=== PATIENT | female | born 1940 | race Caucasian/White ===

== ENCOUNTER → 2016-12-23 11:26 | Day surgery (SDC) | payer MEDICARE, BC ==
[~2016-12-23 11:26] MED LIST: Buffered Lidocaine 1% SYR 3ML* 3 ML/SYR SYRINGE INTRADERM ONE; HYDROcodone/ACETAMIN 5-325 MG* 1 TAB PO PRN; Lidocaine 4% TOPICAL* 50 ML TOP.SOLN ONE; Midazolam* 1 MG/ML 5 ML VIAL (5 MG) ONE; Ondansetron INJ* 2 MG/ML VIAL IV PRN; Ondansetron INJ* 2 MG/ML VIAL ONE; Oxymetazoline 0.05% NASAL SPR* 15 ML BTL ONE; fentaNYL* 50 MCG/ML 2 ML VIAL (100 MCG VIAL) IV PRN; fentaNYL* 50 MCG/ML 2 ML VIAL (100 MCG VIAL) ONE; oxyCODONE TAB* 5 MG TAB PO PRN
[2016-12-23 16:11] VITALS: BP 122/45
--- NOTE | 2016-12-24 00:38 | OP ---
DATE OF OPERATION: 12/23/16 - [facility] DATE OF : 42 SURGEON: David Perez MD. 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 OPERATIVE PROCEDURE: Endoscopic control of epistaxis. COMPLICATIONS: None. DISPOSITION: Good. SPECIMENS: None. BLOOD LOSS: Minimum during the procedure. DESCRIPTION OF PROCEDURE: The patient was taken to the operating room, placed in the supine position on the operating table. General anesthesia was induced and she was orotracheally intubated. Her nose was packed bilaterally with cottonoids impregnated with oxymetazoline and 4% lidocaine. She was turned and draped for the surgery. The packs were removed. She had lot of old clot, which I debrided from her nasal cavity. 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 I cauterized these free edges, her lateral alvarado back into her posterior ethmoid area and up along the anterior face of the sphenoid bilaterally, trying to cauterize anything that might have been her source of bleeding. This was done bilaterally, although it is one big cavity at this point. The patient tolerated the procedure well, no complications, transferred to the recovery room in stable condition. [id number] #: [id number] MTDD
== END | disposition home or self-care (01) ==
LOC: OR 11:26
PROVIDERS: ATTEND Otolaryngology
DX: R04.0 Epistaxis (principal); I78.0 Hereditary hemorrhagic telangiectasia; I10 Essential (primary) hypertension
CPT/HCPCS: A9270-GY; J2250; J2405; J3010

== ENCOUNTER → 2017-01-06 12:50 | Day surgery (SDC) | payer MEDICARE, BC ==
[~2017-01-06 12:50] MED LIST changes: +Lidocain 1% EPI 1:100,000 * 30 ML MDV ONE; +Midazolam* 1 MG/ML 2 ML VIAL (2 MG) ONE; -Midazolam* 1 MG/ML 5 ML VIAL (5 MG) ONE; -Ondansetron INJ* 2 MG/ML VIAL ONE; +Propofol* 10 MG/ML 20 ML BTL IV PUSH ONE; +Silver Nitrate/Potassium Nitr* 1 EA STICK ONE
[2017-01-06 19:50] VITALS: BP 131/73
--- NOTE | 2017-01-07 08:24 | OP ---
DATE OF OPERATION: 01/06/17 - [facility] DATE OF : 42 SURGEON: Cuauhtemoc Dasilva MD ROLLWAY MAN: None. ANESTHESIOLOGIST: Valentín Mercado MD ANESTHESIA: General. 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 OPERATIVE PROCEDURE: Endoscopic control of epistaxis. ESTIMATED BLOOD LOSS: Negligible. FINDINGS: Multiple small potential telangiectasias in both nasal cavities. There was a large perforation of the septum. DESCRIPTION OF PROCEDURE: This is a 76-year-old woman who has hereditary hemorrhagic telangiectasia syndrome. She has history of recurrent epistaxis. She underwent cautery procedure about 2 weeks ago, but continued to have breakthrough cautery, so she was brought back to the operating room today. General anesthesia was induced and oral endotracheal tube was placed. The patient was draped and a time-out was performed. Both nasal cavities were decongested with combination of Afrin and 4% lidocaine. A 0-degree endoscope and a suction Bovie cautery was used to cauterize multiple areas including areas on the floor bilaterally of the nose, the middle and inferior turbinates. Once all potential telangiectasias have been cauterized, the procedure was terminated. The patient was returned to the care of the anesthesiologist, was extubated, delivered to PACU in stable condition. [id number] #: [id number] MTDD
== END | disposition home or self-care (01) ==
LOC: OR 12:50
PROVIDERS: ATTEND Otolaryngology
DX: R04.0 Epistaxis (principal); I78.0 Hereditary hemorrhagic telangiectasia; I34.0 Nonrheumatic mitral (valve) insufficiency; I48.91 Unspecified atrial fibrillation; I10 Essential (primary) hypertension
CPT/HCPCS: A9270-GY; J2250; J2704; J3010

== ENCOUNTER 2018-01-07 08:14 | Day surgery (SDC) | payer MEDICARE, BC ==
[~2018-01-07 08:14] MED LIST changes: +Buffered Lidocaine 0.9% SYRIN* 5 ML/SYR SYRINGE INTRADERM ONE; -Buffered Lidocaine 1% SYR 3ML* 3 ML/SYR SYRINGE INTRADERM ONE; +Dexamethasone IV* 4 MG/ML 1 ML (4 MG) IV SLOW PU ONE; +Famotidine IV* 10 MG/ML 2 ML (20 mg) IV ONE; -HYDROcodone/ACETAMIN 5-325 MG* 1 TAB PO PRN; -Lidocain 1% EPI 1:100,000 * 30 ML MDV ONE; -Lidocaine 4% TOPICAL* 50 ML TOP.SOLN ONE; -Midazolam* 1 MG/ML 2 ML VIAL (2 MG) ONE; -Ondansetron INJ* 2 MG/ML VIAL IV PRN; -Oxymetazoline 0.05% NASAL SPR* 15 ML BTL ONE; -Propofol* 10 MG/ML 20 ML BTL IV PUSH ONE; -Silver Nitrate/Potassium Nitr* 1 EA STICK ONE; -fentaNYL* 50 MCG/ML 2 ML VIAL (100 MCG VIAL) IV PRN; -fentaNYL* 50 MCG/ML 2 ML VIAL (100 MCG VIAL) ONE; -oxyCODONE TAB* 5 MG TAB PO PRN
[2018-01-07] MEDS ORDERED: Buffered Lidocaine 0.9% SYRIN* 5 ML/SYR SYRINGE ONE (08:31)
[2018-01-07] MEDS ORDERED: Famotidine IV* 10 MG/ML 2 ML (20 mg) ONE (08:31)
[2018-01-07] MEDS ORDERED: Dexamethasone IV* 4 MG/ML 1 ML (4 MG) ONE (08:31)
[2018-01-07] MEDS ORDERED: fentaNYL* 50 MCG/ML 2 ML VIAL (100 MCG VIAL) ONE (09:34)
[2018-01-07] MEDS ORDERED: Midazolam* 1 MG/ML 2 ML VIAL (2 MG) ONE (09:34)
[2018-01-07] MEDS ORDERED: Lidocaine 4% TOPICAL* 50 ML TOP.SOLN ONE (10:01)
[2018-01-07] MEDS ORDERED: Oxymetazoline 0.05% NASAL SPR* 15 ML BTL ONE (10:01)
[2018-01-07] MEDS ORDERED: Lidocaine 2% PF * 5 ML VIAL ONE (10:38)
[2018-01-07] MEDS ORDERED: Propofol* 10 MG/ML 20 ML BTL IV PUSH ONE (10:38)
[2018-01-07] MEDS ORDERED: Ondansetron INJ* 2 MG/ML VIAL ONE (10:38)
[2018-01-07] MEDS ORDERED: Naloxone* 0.4 MG/ML 1 ML VIAL IV PRN (11:15)
[2018-01-07 12:26] VITALS: BP 132/58
--- NOTE | 2018-01-07 18:53 | OP ---
DATE OF OPERATION: 01/07/18 - [facility] DATE OF : 42 SURGEON: Cuauhtemoc Dasilva MD. CARPENTER SUPERVISOR: None. ANESTHESIOLOGIST: Franko Virk MD ANESTHESIA: General. 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 OPERATIVE PROCEDURE: Endoscopic control of epistaxis, bilateral. ESTIMATED BLOOD LOSS: Approximately 50 cc. FINDINGS: Active epistaxis of the anterior portion of the inferior turbinate on the right as well as on the posterior aspect of the anterior septal remnant. INDICATION: This is a 77-year-old woman who has had lifelong problems with nosebleeds secondary to hereditary hemorrhagic telangiectasia syndrome. She had been doing well for the past year, but began to have significant bleeding events. The decision was made to bring her back to the operating room for endoscopic cautery. DESCRIPTION OF PROCEDURE: On 01/07/18, the patient was brought to the operating room. General anesthesia was induced and an oral endotracheal tube was placed. The patient was draped and a time-out was performed. The patient' s Merocel packs were removed, at which point there was immediate brisk bleeding. The involved areas appeared to be the right inferior turbinate as well as an arterial posterior edge of the anterior septal remnant. These were extensively cauterized with both a monopolar suction Bovie as well as an endoscopic bipolar cautery. A number of Valsalvas were performed. Few other small areas were cauterized in the region of the left inferior turbinate and on the nasal floor. Ultimately, when all areas of active bleeding and anticipated bleeding were cauterized, the procedure was terminated. Bacitracin ointment was placed into both nasal cavities and applied with a cotton tipped applicator and a drip francisco was applied. The patient was then returned to the care of the anesthesiologist, extubated, and delivered to the PACU in stable condition. [id number] #: [id number] MTDD
== END 2018-01-07 12:32 | disposition home or self-care (01) ==
LOC: OR 08:14
PROVIDERS: ATTEND Otolaryngology
DX: I78.0 Hereditary hemorrhagic telangiectasia (principal); R04.0 Epistaxis; I10 Essential (primary) hypertension; I35.0 Nonrheumatic aortic (valve) stenosis; I48.2 Chronic atrial fibrillation
CPT/HCPCS: A9270-GY; J1100; J2250; J2405; J2704; J3010

== ENCOUNTER 2018-05-27 08:56 | Day surgery (SDC) | payer MEDICARE, BC ==
[2018-05-27] MEDS ORDERED: Famotidine IV* 10 MG/ML 2 ML (20 mg) ONE (09:56)
[2018-05-27] MEDS ORDERED: Dexamethasone IV* 4 MG/ML 1 ML (4 MG) ONE (09:56)
[2018-05-27] MEDS ORDERED: Propofol* 10 MG/ML 20 ML BTL IV PUSH ONE (10:54)
[2018-05-27] MEDS ORDERED: Lidocaine 2% PF * 5 ML VIAL ONE (10:54)
[2018-05-27] MEDS ORDERED: Succinylcholine* 20 MG/ML 10 ML VIAL ONE (10:58)
[2018-05-27] MEDS ORDERED: Lidocaine 4% TOPICAL* 50 ML TOP.SOLN ONE (11:17)
[2018-05-27] MEDS ORDERED: Oxymetazoline 0.05% NASAL SPR* 15 ML BTL ONE (11:17)
[2018-05-27] MEDS ORDERED: Lidocain 1% EPI 1:100,000 * 30 ML MDV ONE (11:17)
[2018-05-27] MEDS ORDERED: Naloxone* 0.4 MG/ML 1 ML VIAL IV PRN (12:21)
[2018-05-27 13:13] VITALS: BP 154/95
--- NOTE | 2018-05-28 02:26 | OP ---
DATE OF OPERATION: 05/27/18 - [facility] DATE OF : 42 SURGEON: Cuauhtemoc Dasilva MD BRICK BURNER: None. ANESTHESIA: General. PRE-OP DIAGNOSIS: Epistaxis secondary to hereditary hemorrhagic telangiectasia. POST-OP DIAGNOSIS: Epistaxis secondary to hereditary hemorrhagic telangiectasia. OPERATIVE PROCEDURE: Endoscopic control of epistaxis bilaterally. ESTIMATED BLOOD LOSS: Negligible. FINDINGS: Dominant telangiectasia apparently the cause of the most recent bleed was present on the left inferior turbinate. There were multiple additional small telangiectasias bilaterally. All of these were cauterized using the monopolar suction Bovie. DESCRIPTION OF PROCEDURE: This is a 77-year-old woman, who has had perennial trouble with epistaxis secondary to her underlying HHT. She was last brought to the operating room 4 months ago for endoscopic control of epistaxis. She had a significant bleed few days ago which required packing. Today, she was brought to the operating room. General anesthesia was induced and oral endotracheal tube was placed. The patient was draped and time-out was performed. The patient's Merocel pack was removed from the left nasal cavity. Bilateral nasal endoscopy was performed. Crusting and purulent secretions were removed from both nasal cavities. There appeared to be a dominant telangiectasia on the left inferior turbinate, likely the cause of the patient's recent bleed. This was cauterized with the monopolar suction Bovie. Detailed inspection of both nasal cavities was then performed endoscopically and a few additional small telangiectasias were seen and cauterized with the monopolar suction Bovie as well. Cauterized areas were then coated with the Bacitracin ointment. The patient was then returned to the care of the anesthesiologist, extubated, and delivered to PACU. [id number] #: [id number]
== END 2018-05-27 13:15 | disposition home or self-care (01) ==
LOC: OR 08:56
PROVIDERS: ATTEND Otolaryngology
DX: I78.0 Hereditary hemorrhagic telangiectasia (principal); I10 Essential (primary) hypertension; I48.91 Unspecified atrial fibrillation; I35.0 Nonrheumatic aortic (valve) stenosis; J32.9 Chronic sinusitis, unspecified
CPT/HCPCS: A9270-GY; J0330; J1100; J2704

== ENCOUNTER → 2018-09-15 20:34 | Emergency (ER) | payer MEDICARE, BC ==
[~2018-09-15 20:34] MED LIST changes: -Buffered Lidocaine 0.9% SYRIN* 5 ML/SYR SYRINGE INTRADERM ONE; -Dexamethasone IV* 4 MG/ML 1 ML (4 MG) IV SLOW PU ONE; -Famotidine IV* 10 MG/ML 2 ML (20 mg) IV ONE; +NS 0.9% 1000 ML* 1,000 ML IV ONE
[2018-09-15 21:15] LABS: ABS Basophils 0.1 10^3/ul (0-0.2); ABS Eosinophils 0 10^3/ul (0-0.6); ABS Lymphocytes 0.8 10^3/ul (1.0-4.8); ABS Monocytes 1.1 10^3/ul (0-0.8); ABS Neutrophils 6.4 10^3/ul (1.5-7.7); ABS Nucleated RBC 0 10^3/ul; Eosinophil % 0.3 % (0-6); Hematocrit 39 % (35-47); Hemoglobin 12.4 g/dl (12.0-16.0); Lymphocyte % 9.1 % (25-47); Mean Corpuscular HGB Conc 32 g/dl (31-36); Mean Corpuscular Hemoglobin 24 pg (27-31); Mean Corpuscular Volume 76 fL (80-97); Mean Platelet Volume 8.9 fL (7.4-10.4); Nucleated Red Blood Cells % 0; Platelet Count 160 10^3/ul (150-450); Red Blood Count 5.16 10^6/ul (4.00-5.40); Red Cell Distribution Width 19 % (10.5-15); White Blood Count 8.3 10^3/ul (3.5-10.8)
[2018-09-15 21:31] LABS: EGFR Non-African American 146.3 (>60)
--- NOTE | 2018-09-15 21:34 | ED ---
Neurological HPI - HPI Summary HPI Summary: A 78 year old female brought in by ambulance presents to the ED post fall TRANSPORTATION ESCORT on 09/15/2018. Per family, she lost use of her legs and collapsed in their garage after drinking a couple glasses of wine. Per daughter, the patient had no LOC, did not hit her head and had no numbness/tingling post fall. The family claims that she drinks wine but has never had this problem. She has a Hx of a- fib and HTN but is not on blood thinners. She broke her hip in September,. She has hip pain because of this. She denies weakness, MURPHY, lightheadedness, Fever, Chills, Erythema (eyes), Sore throat, Chest pain, Shortness of Breath, Cough, Abdominal pain, Vomiting, Nausea, Dysuria, Hematuria, Edema, Rash and Dizziness. - History of Current Complaint Chief Complaint: EDWeakness Stated Complaint: FALL Time Seen by Provider: 09/15/18 20:48 Hx Obtained From: Patient, Family/Auto Mechanics Instructor Onset/Duration: Sudden Onset, Started hours ago Pain Intensity: 0 Pain Scale Used: 0-10 Numeric - Additional Pertinent History Primary Care Physician: PAULINO - Allergy/Home Medications Allergies/Adverse Reactions: Allergies Allergy/AdvReac Type Severity Reaction Status Date / Time chlorpheniramine Allergy Intermediate See Comment Verified 09/15/18 20:52 diphenhydramine Allergy See Comment Verified 09/15/18 20:52 enoxaparin [From Lovenox] Allergy Bleeding Verified 09/15/18 20:52 heparin Allergy Bleeding Verified 09/15/18 20:52 loratadine Allergy See Comment Verified 09/15/18 20:52 rivaroxaban [From Xarelto] Allergy Bleeding Verified 09/15/18 20:52 warfarin Allergy Bleeding Verified 09/15/18 20:52 pepper Allergy Severe coughing Uncoded 09/15/18 20:52 and sneezing antihistamines Allergy heart race Uncoded 09/15/18 20:52 blood thiners AdvReac Severe Bleeding Uncoded 09/15/18 20:52 PMH/Surg Hx/FS Hx/Imm Hx Endocrine/Hematology History: Reports: Other Endocrine/Hematological Disorders - epitaxis (HHT), Osler Telangiectasia Denies: Hx Sickle Cell Disease Cardiovascular History: Reports: Hx Congestive Heart Failure, Hx Coronary Artery Disease, Hx Hypertension - ON MEDS PT STATES CONTROLLED, Other Cardiovascular Problems/Disorders - Mitral Valve disorder Respiratory History: Reports: Other Respiratory Problems/Disorders - HX OF EPISTAXIS, HAS ONE NOW, SOUND STUFFY DUE TO PACKING IN NOSE PRESENTLY GI History: Denies: Other GI Disorders History: Denies: Other Problems/Disorders Musculoskeletal History: Reports: Hx Arthritis, Other Musculoskeletal History - left Hip Fx with repair 09/25/16 Denies: Hx Osteoporosis Sensory History: Reports: Hx Cataracts - bilat surgery, Hx Contacts or Glasses - reading small print, Hx Hearing Aid - LEFT EAR Opthamlomology History: Reports: Hx Cataracts - bilat surgery, Hx Contacts or Glasses - reading small print Neurological History: Denies: Hx Headaches, Hx Seizures, Hx Transient Ischemic Attacks (TIA), Other Neuro Impairments/Disorders Psychiatric History: Denies: Hx Anxiety, Hx Depression - Cancer History Hx Chemotherapy: No - Surgical History Surgery Procedure, Year, and Place: SEVERAL NOSE SURGERIES FOR EPISTAXIS, [facility] + . PARTIAL HYSTERECTOMY IN EARLY , [place]. left Hip Fx with repair . bilat cataract surgery with IOL Hx Anesthesia Reactions: No Infectious Disease History: No Infectious Disease History: Denies: Traveled Outside the [place] in Last 30 Days - Family History Known Family History: Negative: Hypertension, Diabetes - Social History Alcohol Use: Daily Alcohol Amount: 2 GLASS WINE/NIGHT Substance Use Type: Reports: None Smoking Status (MU): Never Smoked Tobacco Review of Systems Negative: Fever, Chills Negative: Erythema Negative: Sore Throat Negative: Chest Pain Negative: Shortness Of Breath, Cough Negative: Abdominal Pain, Vomiting, Nausea Negative: dysuria, hematuria Positive: Myalgia - hip pain. Negative: Edema Negative: Rash Neurological: Negative - dizziness Negative: Headache, Weakness, Paresthesia, Numbness, Syncope All Other Systems Reviewed And Are Negative: Yes Physical Exam - Summary Physical Exam Summary: Constitutional: Well-developed, Well-nourished, Alert. (-) Distressed Skin: Warm, Dry HENT: Normocephalic; Atraumatic, dry oral mucosa. Eyes: Conjunctiva normal Neck: Musculoskeletal ROM normal neck. (-) JVD, (-) Stridor, (-) Tracheal deviation Cardio: Rhythm regular, rate normal, Heart sounds normal; Intact distal pulses; The pedal pulses are 2+ and symmetric. Radial pulses are 2+ and symmetric. (-) Murmur Pulmonary/Chest wall: Effort normal. (-) Respiratory distress, (-) Wheezes, (-) Rales Abd: Soft, (-) epigastric tenderness, (-) Distension, (-) Guarding, (-) Rebound , (+) mild suprapubic tenderness Musculoskeletal: (-) Edema Lymph: (-) Cervical adenopathy Neuro: Alert, Oriented x3 Psych: Mood and affect Normal Triage Information Reviewed: Yes Vital Signs On Initial Exam: Initial Vitals Temp Pulse Resp BP Pulse Ox 98.2 F 110 18 156/117 95 09/15/18 20:40 09/15/18 20:40 09/15/18 20:40 09/15/18 20:40 09/15/18 20:40 Vital Signs Reviewed: Yes Diagnostics - Vital Signs Vital Signs Temp Pulse Resp BP Pulse Ox 09/15/18 20:40 98.2 F 110 18 156/117 95 - Laboratory Lab Results: Lab Results 09/15/18 Range/Units 21:04 WBC 8.3 (3.5-10.8) 10^3/ul RBC 5.16 (4.00-5.40) 10^6/ul Hgb 12.4 (12.0-16.0) g/dl Hct 39 (35-47) % MCV 76 L (80-97) fL MCH 24 L (27-31) pg MCHC 32 (31-36) g/dl RDW 19 H (10.5-15) % Plt Count 160 (150-450) 10^3/ul MPV 8.9 (7.4-10.4) fL Neut % (Auto) 77.3 (38-83) % Lymph % (Auto) 9.1 L (25-47) % Calvert % (Auto) 12.7 H (0-7) % Eos % (Auto) 0.3 (0-6) % Baso % (Auto) 0.6 (0-2) % Absolute Neuts (auto) 6.4 (1.5-7.7) 10^3/ul Absolute Lymphs (auto) 0.8 L (1.0-4.8) 10^3/ul Absolute Monos (auto) 1.1 H (0-0.8) 10^3/ul Absolute Eos (auto) 0 (0-0.6) 10^3/ul Absolute Basos (auto) 0.1 (0-0.2) 10^3/ul Absolute Nucleated RBC 0 10^3/ul Nucleated RBC % 0 Result Diagrams: 09/15/18 21:04 09/15/18 21:04 Lab Statement: Any lab studies that have been ordered have been reviewed, and results considered in the medical decision making process. - Radiology CXR Radiology Interpretation Completed By: ED Physician - no acute disease. ED physician reviewed this report. - CT Brain CT Interpretation Completed By: Radiologist - 1. No acute intracranial pathology. 2. Mild mucosal thickening of the of the ethmoid sinuses. 3. Other chronic findings, as above. ED physician reviewd this report. Course/Dx - Course Course Of Treatment: A 78 year old female brought in by ambulance presents to the ED post fall TRANSPORTATION ESCORT on 09/15/2018. Per family, she lost use of her legs and collapsed in their garage after drinking a couple glasses of wine. Per daughter , the patient had no LOC, did not hit her head and had no numbness/tingling post fall. The family claims that she drinks wine but has never had this problem. She has a Hx of a-fib and HTN but is not on blood thinners. She broke her hip in September,. She has hip pain because of this. She denies weakness , MURPHY, lightheadedness, Fever, Chills, Erythema (eyes), Sore throat, Chest pain, Shortness of Breath, Cough, Abdominal pain, Vomiting, Nausea, Dysuria, Hematuria , Edema, Rash and Dizziness. Her CXR showed no acute disease. Her brain CT revealed:1. No acute intracranial pathology. 2. Mild mucosal thickening of the of the ethmoid sinuses. 3. Other chronic findings, as above. Her lactic acid was remarkable at 2.1 and her serum alcohol was remarkable at 182. Dx: alcohol intoxication. The patient will be signed out to Dr. Mcknight at shift change pending labs. - Diagnoses Provider Diagnoses: Alcohol intoxication Discharge - Sign-Out/Discharge Documenting (check all that apply): Sign-Out Patient Signing out patient TO: Omayra Mcknight - Discharge Plan Referrals: Velvet Lemon MD [Primary Care Provider] - - Attestation Statements Document Initiated by Scribe: Yes Documenting Scribe: Zheng Lauren Provider For Whom Scribe is Documenting (Include Credential): Garo Dela Cruz Scribe Attestation: I, Zheng Lauren, scribed for Garo Dela Cruz on 09/15/18 at 2230.
[2018-09-15 21:38] LABS: Urine Appearance Clear; Urine Blood 1+ (Negative); Urine Color Yellow; Urine Ketones Negative (Negative); Urine Protein 1+(30 mg/dL) (Negative); Urine Red Blood Cell Trace(0-2/hpf) (Absent); Urine Specific Gravity 1.003 (1.010-1.030); Urine Urobilinogen Negative (Negative); Urine White Blood Cell Trace(0-5/hpf) (Absent)
--- NOTE | 2018-09-15 23:06 | ED ---
Progress - Progress Note Progress Note: This pt was signed out by Dr. Dela Cruz, pending disposition, awaiting MHE. EKG at 22:59 Rate: 101 bpm Rhythm: atrial fibrillation LVH Re-Evaluation - Re-Evaluation First Eval Re-Evaluation Time: 23:05 Comment: Pt was ambulated in the ED without any difficulty. Course/Dx - Course Course Of Treatment: Pt was signed out by Dr. Dela Cruz. Pt was ambulated in the ED and she had a steady gait. Therefore she will be discharged home with follow up from PCP. Pt was instructed to return to the ED for any worsening symptoms. - Diagnoses Provider Diagnoses: Alcohol intoxication Discharge - Sign-Out/Discharge Documenting (check all that apply): Patient Departure - Discharge home, Receiving Sign-Out Receiving patient FROM: Garo Dela Cruz - Discharge Plan Condition: Stable Disposition: HOME Patient Education Materials: Alcohol Intoxication (ED) Referrals: Velvet Lemon MD [Primary Care Provider] - Additional Instructions: Please follow up with your primary care provider in 1-2 days. RETURN TO EMERGENCY DEPARTMENT FOR ANY NEW OR WORSENING SYMPTOMS. - Attestation Statements Document Initiated by Scribe: Yes Documenting Scribe: Gisela Garcia Provider For Whom Scribe is Documenting (Include Credential): Omayra Mcknight MD Scribe Attestation: Gisela Mayorga, scribed for Omayra Mcknight MD on 09/15/18 at 2088.
[2018-09-15 23:15] VITALS: BP 129/104
== END | disposition home or self-care (01) ==
LOC: ED 20:34
DX: F10.129 Alcohol abuse with intoxication, unspecified (principal); I25.10 Atherosclerotic heart disease of native coronary artery without angina pectoris
CPT/HCPCS: 36415; 70450; 71045; 80053; 80320; 81003; 81015; 83605; 83735; 84443; 84484; 85025; 87086; 93005; 96360; 99282; G0480

== ENCOUNTER 2019-04-14 07:55 | Inpatient (IN) | payer MEDICARE, BC ==
--- OUTSIDE RECORDS SUMMARY | 2019-04-14 08:06 | XMS REPORT | Continuity of Care Document ---
:1940 External Reference #:[id number] Author Name Cha Gonzalez Care Team Providers Name Role Phone Velvet Lemon MD Primary Care Physician Unavailable Payers Date Identification Numbers Payment Provider Subscriber Effective: 2006 Policy Number: [id number] Medicare Aminah Hensley PayID: [id number] [address] [place] [address] Policy Number: [id number] [facility] Leonard Bills PayID: [id number] [address] [place] [address] Problems Active Problems Provider Date Mixed hyperlipidemia Gracy Mc M.D. Onset: 03/23/2014 Premature beats Garcy Mc M.D. Onset: 03/23/2014 [place] haemorrhagic telangiectasia syndrome Gracy Mc M.D. Onset: 2013 Aortic valve disorder Gracy Mc M.D. Onset: 08/23/2015 Essential hypertension Gracy Mc M.D. Onset: 08/23/2015 Carotid artery occlusion Gracy Mc M.D. Onset: 03/23/2016 Persistent atrial fibrillation Gracy Mc M.D. Onset: 11/23/2016 Mitral valve disorder Gracy Mc M.D. Onset: 04/03/2019 Chronic atrial fibrillation Gracy Mc M.D. Onset: 01/31/2018 Family History Date Family Member(s) Observation Comments Father Colon Cancer 80 yo Mother Hypertension elder years, age 93 yo Siblings 9 2 sibs lung CA. No CAD/vascular disease. Social History Type Date Description Comments Sex Unknown Marital Status Lives With Occupation Retired Tobacco Use Start: Unknown not smoking ETOH Use Consumes 1 glass of wine per day Tobacco Use Start: Unknown Patient has never smoked Recreational Drug Use Denies Drug Use Smoking Status Reviewed: 04/03/19 Patient has never smoked Exercise Type/Frequency Ymca 3 x week Exercise Type/Frequency Walks 5 times a week Allergies, Adverse Reactions, Alerts Active Allergies Reaction Severity Comments Date Anticoagulants HHT- Hereditary hemorrhagic 03/23/2014 telangiectasia per patient Adhesives pt states ok with any tape 03/23/2014 Anti Histamine per patient 11/23/2016 Inactive Allergies NKDA 03/21/2014 Medications Active Medications SIG Qnty Indications Ordering Provider Date Metoprolol Succinate 1 and 1/2 by 225tabs Gracy Mc, 10/29/2016 ER mouth in the M.D. 100mg Tablets ER morning and one 24HR tablet at night Lisinopril 1 by mouth every 90tabs I10 Gracy Mc, 08/03/2014 2.5mg day M.D. Tablets Ensure 1 drink in the Am Unknown every day Vitamin D 1 by mouth Unknown 1000Unit everyday Tablets History Medications Metoprolol Succinate 1 tab by mouth 60tabs Douglas Khalil, 02/08/2013 - ER twice a day DO FACC 10/29/2016 50mg Tablets ER 24HR Flax Seed as needed Unknown - 11/22/2016 Furosemide 1 by mouth wednesday, 30tabs Douglas Khalil, - 20mg wednesday and DO FACC 07/13/2017 Tablets wednesday Digoxin 1 by mouth daily 90tabs Gracy Mc, - 125mcg M.D. 04/03/2019 Tablets Vital Signs Date Vital Result Comment 04/03/2019 4:07pm Height 68 inches 5'8" Weight 117.00 lb with shoes Heart Rate 90 /min BP Systolic Sitting 144 mmHg Lue reg cuff BP Diastolic Sitting 92 mmHg Lue reg cuff BP Systolic Standing 140 mmHg Lue reg cuff BP Diastolic Standing 88 mmHg Lue reg cuff Respiratory Rate 16 /min BMI (Body Mass Index) 17.8 kg/m2 Ejection Fraction 60-65% date 03/29/19 ECHO 01/31/2018 2:30pm Height 68 inches 5'8" Weight 128.00 lb Heart Rate 63 /min BP Systolic Sitting 127 mmHg BP Diastolic Sitting 62 mmHg BP Systolic Standing 128 mmHg BP Diastolic Standing 63 mmHg Respiratory Rate 18 /min BMI (Body Mass Index) 19.5 kg/m2 Ejection Fraction 55-60% 01/25/2018 echo 07/29/2017 1:18pm Height 68 inches 5'8" Weight 135.00 lb Heart Rate 88 /min BP Systolic Sitting 134 mmHg Lue reg cuff BP Diastolic Sitting 98 mmHg Lue reg cuff BP Systolic Standing 134 mmHg Lue BP Diastolic Standing 92 mmHg Lue Respiratory Rate 18 /min BMI (Body Mass Index) 20.5 kg/m2 Ejection Fraction 55-60% 10/26/16 07/13/2017 2:48pm Height 68 inches 5'8" Weight 136.00 lb with shoes Heart Rate 82 /min BP Systolic Sitting 140 mmHg Lue reg cuff BP Diastolic Sitting 110 mmHg Lue reg cuff BP Systolic Standing 140 mmHg Lue reg cuff BP Diastolic Standing 102 mmHg Lue reg cuff Respiratory Rate 17 /min BMI (Body Mass Index) 20.7 kg/m2 12/29/2016 9:39am Height 68 inches 5'8" Weight 142.00 lb Heart Rate 96 /min BP Systolic Sitting 124 mmHg Rue reg cuff BP Diastolic Sitting 88 mmHg Rue reg cuff BP Systolic Standing 116 mmHg Rue reg cuff BP Diastolic Standing 90 mmHg Rue reg cuff Respiratory Rate 17 /min BMI (Body Mass Index) 21.6 kg/m2 Ejection Fraction 55-60% date 10/26/16 ECHO 12/14/2016 11:41am Height 68 inches 5'8" Heart Rate 80 /min BP Systolic Sitting 118 mmHg Lue , regular cuff BP Diastolic Sitting 70 mmHg Lue , regular cuff BP Systolic Standing 110 mmHg BP Diastolic Standing 70 mmHg Respiratory Rate 18 /min 12/01/2016 10:52am Height 68 inches 5'8" Weight 143.00 lb w/ shoes Heart Rate 100 /min irreg BP Systolic Sitting 112 mmHg Rue, reg cuff BP Diastolic Sitting 60 mmHg Rue, reg cuff BP Systolic Standing 120 mmHg Rue BP Diastolic Standing 70 mmHg Rue Respiratory Rate 16 /min BMI (Body Mass Index) 21.7 kg/m2 Ejection Fraction 55-60% as of 10/26/16 echo 11/23/2016 11:05am Height 68 inches 5'8" Weight 142.00 lb with shoes Heart Rate 78 /min BP Systolic Sitting 128 mmHg Rue reg cuff BP Diastolic Sitting 90 mmHg Rue reg cuff BP Systolic Standing 140 mmHg Rue reg cuff BP Diastolic Standing 90 mmHg Rue reg cuff Respiratory Rate 18 /min BMI (Body Mass Index) 21.6 kg/m2 Ejection Fraction 60-65% date 10/26/16 ECHO 10/29/2016 2:33pm Height 68 inches 5'8" Weight 143.00 lb Heart Rate 106 /min irregular BP Systolic Sitting 164 mmHg Ra reg cuff BP Diastolic Sitting 76 mmHg Ra reg cuff BP Systolic Standing 164 mmHg Ra BP Diastolic Standing 80 mmHg Ra Respiratory Rate 16 /min BMI (Body Mass Index) 21.7 kg/m2 Ejection Fraction 55-60% 10/26/16 03/23/2016 9:32am Height 68 inches 5'8" Weight 146.00 lb with shoes Heart Rate 76 /min BP Systolic Sitting 152 mmHg LA reg cuff BP Diastolic Sitting 88 mmHg LA reg cuff BP Systolic Standing 150 mmHg LA reg cuff BP Diastolic Standing 88 mmHg LA reg cuff Respiratory Rate 18 /min BMI (Body Mass Index) 22.2 kg/m2 Ejection Fraction no EF 08/14/14 08/23/2015 8:44am Height 68 inches 5'8" Weight 143.31 lb no shoes Heart Rate 74 /min BP Systolic Sitting 126 mmHg LA, reg cuff BP Diastolic Sitting 84 mmHg LA, reg cuff BP Systolic Standing 128 mmHg LA BP Diastolic Standing 72 mmHg LA Respiratory Rate 14 /min BMI (Body Mass Index) 21.8 kg/m2 08/03/2014 1:13pm Height 68 inches 5'8" Weight 150.00 lb with shoes Heart Rate 66 /min BP Systolic Sitting 170 mmHg La reg cuff BP Diastolic Sitting 90 mmHg La reg cuff BMI (Body Mass Index) 22.8 kg/m2 03/23/2014 10:14am Height 68 inches 5'8" Weight 148.00 lb without shoes Heart Rate 54 /min BP Systolic 156 mmHg LA reg cuff BP Diastolic 90 mmHg LA reg cuff BP Systolic Sitting 150 mmHg LA reg cuff BP Diastolic Sitting 100 mmHg LA reg cuff BP Systolic Standing 154 mmHg LA reg cuff BP Diastolic Standing 94 mmHg LA reg cuff Respiratory Rate 12 /min BMI (Body Mass Index) 22.5 kg/m2 Results Test Date Facility Test Result H/L Range Note Laboratory test 12/11/2016 [facility] Digoxin 0.7 ng/ml Low 0.8-2.0 [address] [place] [address] [phone] Magnesium 2.0 mg/dL N 1.9-2.7 2 Basic Metabolic Panel 12/11/2016 [facility] Sodium 140 mmol/L N 133-145 [address] [place] [address] [phone] Chloride 103 mmol/L N 101-111 Co2 Carbon Dioxide 31 mmol/L N 22-32 Glucose 102 mg/dL High 70-100 Blood Urea Nitrogen 9 mg/dL N 6-24 Creatinine 0.64 mg/dL N 0.51-0.95 BUN/Creatinine Ratio 14.1 N 8-20 Calcium 10.0 mg/dL N 8.6-10.3 Egfr Non- 90.5 N >60 Egfr 116.3 N >60 3 Potassium 4.3 mmol/L N 3.5-5.0 Anion Gap 6 mmol/L N 2-11 Laboratory test 10/23/2016 [facility] Partial 24.3 seconds Low 26.0-36.3 finding [address] [facility] [place] [address] PTT [phone] Inr/Protime 10/23/2016 [facility] Inr 1.11 N 0.89-1.[address] [place] [address] [phone] CBC Auto Diff 10/23/2016 [facility] White Blood 5.7 10^3/uL N 3.5-10.[address] [place] [address] [phone] Red Blood Count 4.33 10^6/uL N 4.0-5.4 Hemoglobin 12.8 g/dL N 12.0-16.0 Hematocrit 40 % N 35-47 Mean Corpuscular Volume 91 fL N 80-97 Mean Corpuscular Hemoglobin 30 pg N 27-31 Mean Corpuscular HGB Conc 32 g/dL N 31-36 Red Cell Distribution Width 14 % N 10.5-15 Platelet Count 217 10^3/uL N 150-450 Mean Platelet Volume 9 um3 N 7.4-10.4 Abs Neutrophils 3.9 10^3/uL N 1.5-7.7 Abs Lymphocytes 0.9 10^3/uL Low 1.0-4.8 Abs Monocytes 0.8 10^3/uL N 0-0.8 Abs Eosinophils 0.1 10^3/uL N 0-0.6 Abs Basophils 0 10^3/uL N 0-0.2 Abs Nucleated RBC 0 10^3/uL N Granulocyte % 67.7 % N 38-83 Lymphocyte % 15.6 % Low 25-47 Monocyte % 14.4 % High 1-9 Eosinophil % 1.5 % N 0-6 Basophil % 0.8 % N 0-2 Nucleated Red Blood Cells % 0 N Laboratory test 10/23/2016 [facility] Magnesium 1.8 mg/dL Low 1.9-2.7 finding [address] [place] [address] [phone] TSH (Thyroid Stim Horm) 1.25 mcIU/mL N 0.34-5.60 Free T4 (Free Thyroxine) 1.30 ng/dL High 0.61-1.12 Comp Metabolic Panel 10/23/2016 [facility] Sodium 138 mmol/L N 133-145 [address] [place] [address] [phone] Potassium 4.0 mmol/L N 3.5-5.0 Chloride 108 mmol/L N 101-111 Co2 Carbon Dioxide 23 mmol/L N 22-32 Anion Gap 7 mmol/L N 2-11 Glucose 101 mg/dL High 70-100 Blood Urea Nitrogen 10 mg/dL N 6-24 Creatinine 0.59 mg/dL N 0.51-0.95 BUN/Creatinine Ratio 16.9 N 8-20 Calcium 9.3 mg/dL N 8.6-10.3 Total Protein 6.6 g/dL N 6.4-8.9 Albumin 3.1 g/dL Low 3.2-5.2 Globulin 3.5 g/dL N 2-4 Albumin/Globulin Ratio 0.9 Low 1-3 Total Bilirubin 0.80 mg/dL N 0.2-1.0 Alkaline Phosphatase 112 U/L High 34-104 Alt 17 U/L N 7-52 Ast 26 U/L N 13-39 Egfr Non- 99.4 N >60 Egfr 127.8 N >60 4 1 Non-fasting in 10 days 2 Non-fasting in 10 days 3 Because ethnic data is not always readily available, this report includes an eGFR for both -Americans and non- Americans. The National Kidney Disease Education Program (NKDEP) does not endorse the use of the MDRD equation for patients that are not between the ages of 18 and 70, are , have extremes of body size, muscle mass, or nutritional status, or are non- or non-. According to the National Kidney Foundation, irrespective of diagnosis, the stage of the disease is based on the level of kidney function: Stage Description GFR(mL/min/1.73 m(2)) 1 Kidney damage with normal or decreased GFR 90 2 Kidney damage with mild decrease in GFR 60-89 3 Moderate decrease in GFR 30-59 4 Severe decrease in GFR 15-29 5 Kidney failure <15 (or dialysis) 4 Because ethnic data is not always readily available, this report includes an eGFR for both -Americans and non- Americans. The National Kidney Disease Education Program (NKDEP) does not endorse the use of the MDRD equation for patients that are not between the ages of 18 and 70, are , have extremes of body size, muscle mass, or nutritional status, or are non- or non-. According to the National Kidney Foundation, irrespective of diagnosis, the stage of the disease is based on the level of kidney function: Stage Description GFR(mL/min/1.73 m(2)) 1 Kidney damage with normal or decreased GFR 90 2 Kidney damage with mild decrease in GFR 60-89 3 Moderate decrease in GFR 30-59 4 Severe decrease in GFR 15-29 5 Kidney failure <15 (or dialysis) Procedures Date Code Description Status 04/03/2019 41004 EKG Tracing & Interpretation Completed 03/29/2019 31041 ECHO Transthoracic, Real-Time 2D With Doppler And Color Completed Flow 01/25/2018 12851 ECHO Transthoracic, Real-Time 2D With Doppler And Color Completed Flow 01/25/2018 68956 ECHO Transthoracic, Real-Time 2D With Doppler And Color Completed Flow 07/13/2017 88249 EKG Tracing & Interpretation Completed 12/14/2016 23774 EKG Tracing & Interpretation Completed 12/14/2016 50785 EKG Tracing & Interpretation Completed 12/02/2016 10139 Holter Monitor Review (24 hr)dr review & interp only Completed 11/25/2016 02192 ECG Monitor/Recording W/Visual Superimposition Scanning Completed 11/23/2016 46435 EKG Tracing & Interpretation Completed 10/29/2016 12073 EKG Tracing & Interpretation Completed 10/26/2016 75937 ECHO Transthorasic Realtime 2D W Doppler & Color Flow Hosp Completed 10/23/2016 63587 EKG, Interpretation Only Completed 02/04/2016 27743 Carotid Doppler,Bilateral Completed 08/23/2015 99859 EKG Tracing & Interpretation Completed 08/14/2014 40579 ECHO Transthoracic, Real-Time 2D With Doppler And Color Completed Flow 08/03/2014 42922 EKG Tracing & Interpretation Completed 03/23/2014 64629 EKG Tracing & Interpretation Completed 03/21/2014 30309 Holter Monitoring 24 HR New Completed 09/13/2013 91353 EKG, Interpretation Only Completed 08/28/2013 24466 EKG, Interpretation Only Completed 04/18/2013 84527 ECHO Transthoracic, Real-Time 2D With Doppler And Color Completed Flow 03/07/2013 60632 EKG Tracing & Interpretation Completed 02/17/2013 65437 Holter Monitoring 24 HR New Completed 01/01/2007 30220 EKG, Interpretation Only Completed 01/01/2007 77491 EKG, Interpretation Only Completed Encounters Type Date Location Provider Dx Diagnosis Office Visit 01/31/2018 [facility] Gracy Mc, I35.1 Nonrheumatic aortic 2:40p [employer] M.D. 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 I50.9 Heart failure, Of [facility] Khalil, DO unspecified FACC I48.91 Unspecified atrial fibrillation I10 Essential (primary) hypertension Office Visit 10/25/2016 7:13a [facility] Soo Burt, I48.91 Unspecified atrial Assoc,pc N.P. 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 I50.9 Heart failure, Of [employer] Khalil, DO unspecified FACC I48.91 Unspecified atrial fibrillation I10 Essential (primary) hypertension Office Visit 03/23/2016 9:45a [facility] Gracy Mc, I35.0 Nonrheumatic [employer] M.D. aortic (valve) stenosis I35.1 Nonrheumatic aortic (valve) insufficiency I10 Essential (primary) hypertension E78.2 Mixed hyperlipidemia I65.23 Occlusion and stenosis of bilateral carotid arteries Office Visit 08/23/2015 9:00a [facility] Gracy Mc, I35.1 Nonrheumatic aortic Cardiology Joi (valve) [facility] insufficiency I35.0 Nonrheumatic aortic (valve) stenosis I10 Essential (primary) hypertension I49.3 Ventricular premature depolarization R09.89 Oth symptoms and signs involving the circ and resp systems R01.1 Cardiac murmur, unspecified I35.2 Nonrheumatic aortic (valve) stenosis with insufficiency Office Visit 08/03/2014 [facility] Gracy Mc, V72.81 Examination 1:15p Cardiology Latrell Tamez [facility] Cardiovascular 401.9 Hypertension Unspec 424.1 Aortic Valve Disorder 427.60 Premature Beats Unspec Office Visit 03/23/2014 [facility], 272.2 Hyperlipidemia Mixed 9:45a Cardiology Joi [facility] 427.60 Premature Beats Unspec 448.0 Telangiectasia Hemorrhagic Hereditary Office Visit 03/07/2013 12:45p [facility] Gracy Mc, 427.69 Premature Beats Of [facility] Joi Other 427.0 PSVT Paroxysmal Supraventricular Tachycardia 401.9 Hypertension Unspec 424.1 Aortic Valve Disorder Plan of Treatment Future Appointment(s):04/25/2019 3:30 pm - Nurse Visit [facility] at [facility]04/03/2019 - Gracy Mc M.D.I48.2 Chronic atrial fibrillationComments: Rate is controlled.Follow up:OV 6 months with ECG OV 12 months after next echo , with ECG. Nurse check 3-5 weeks: Check weight, pulse rate (apical) off digoxen.Recommendations:Continue with metoprolol for rate control. Digoxen can lead to appetite suppression. If more weight loss we can stop this. STOP DIGOXEN.I35.0 Nonrheumatic aortic (valve) stenosisNew Orders:Echocardiogram, Ordered: 04/03/19Comments:Moderate.Recommendations:For your aortic stenosis this will progress slowly, call if your breathing worsens, you get dizzy, you notice extra beats, your overall stamina declines or you develope chest discomfort with activity.Follow w/echo in a year. This could contribute to lung exam.I34.0 Nonrheumatic mitral (valve) insufficiencyComments:Mild to hzqpwgemN48.2 Nonrheumatic mitral (valve) stenosisComments:Moderate.R22.1 Localized swelling, mass and lump, neckComments:I noted a firm nodule left neck , possibly on the thyroid.F/u with Dr Lemon.
--- OUTSIDE RECORDS SUMMARY | 2019-04-14 08:06 | XMS REPORT | Continuity of Care Document ---
:1940 External Reference #:[id number] Author Name Cha Gonzalez Care Team Providers Name Role Phone Velvet Lemon MD Primary Care Physician Unavailable Payers Date Identification Numbers Payment Provider Subscriber Effective: 2006 Policy Number: [id number] Medicare Aminah Hensley PayID: [id number] [address] [place] [address] Policy Number: [id number] [facility] Leonard Bills PayID: [id number] [address] [place] [address] Problems Active Problems Provider Date Mixed hyperlipidemia Gracy Mc M.D. Onset: 03/23/2014 Premature beats Gracy Mc M.D. Onset: 03/23/2014 Osler haemorrhagic telangiectasia syndrome Gracy Mc M.D. Onset: 2013 Aortic valve disorder Gracy Mc M.D. Onset: 08/23/2015 Essential hypertension Gracy Mc M.D. Onset: 08/23/2015 Carotid artery occlusion Gracy Mc M.D. Onset: 03/23/2016 Persistent atrial fibrillation Gracy Mc M.D. Onset: 11/23/2016 Mitral valve disorder Gracy cM M.D. Onset: 04/03/2019 Chronic atrial fibrillation Gracy [...] drink in the Am Unknown every day Digoxin 1 by mouth daily 90tabs Gracy Mc, 125mcg M.D. Tablets Vitamin D 1 by mouth Unknown 1000Unit everyday Tablets History Medications Metoprolol Succinate 1 tab by mouth 60tabs Douglas Khalil, 02/08/2013 - ER twice a day DO FACC 10/29/2016 50mg Tablets ER 24HR Flax Seed as needed Unknown - 11/22/2016 Furosemide 1 by mouth wednesday, 30tabs Douglas Khalil, - 20mg wednesday and DO FACC 07/13/2017 Tablets wednesday Vital Signs Date Vital Result Comment 04/03/2019 [...] Result H/L Range Note Laboratory test 12/11/2016 [facility] Digoxin 0.7 ng/ml Low 0.8-2.0 [address] [place] [address] [phone] Magnesium 2.0 mg/dL N 1.9-2.7 2 Basic Metabolic Panel 12/11/2016 [facility] Sodium 140 mmol/L N 133-145 [address] [place] [address] [phone] Chloride 103 mmol/L N 101-111 Co2 Carbon Dioxide 31 mmol/L N 22-32 Glucose 102 mg/dL High 70-100 Blood Urea Nitrogen 9 mg/dL N 6-24 Creatinine 0.64 mg/dL N 0.51-0.95 BUN/Creatinine Ratio 14.1 N 8-20 Calcium 10.0 mg/dL N 8.6-10.3 Egfr Non- 90.5 N >60 Egfr 116.3 N >60 3 Potassium 4.3 mmol/L N 3.5-5.0 Anion Gap 6 mmol/L N 2-11 Laboratory test 10/23/2016 [facility] Partial 24.3 seconds Low 26.0-36.[address] [place] [address] PTT [phone] Inr/Protime 10/23/2016 [facility] Inr 1.11 N 0.89-1.[address] [place] [address] [phone] CBC Auto Diff 10/23/2016 [facility] White Blood 5.7 10^3/uL N 3.5-10.[address] [place] [address] [phone] Red Blood Count 4.33 10^6/uL N 4.0-5.4 [...] Cells % 0 N Laboratory test 10/23/2016 [facility] Magnesium 1.8 mg/dL Low 1.9-2.7 finding [address] [place] [address] [phone] TSH (Thyroid Stim Horm) 1.25 mcIU/mL N 0.34-5.60 Free T4 (Free Thyroxine) 1.30 ng/dL High 0.61-1.12 Comp Metabolic Panel 10/23/2016 [facility] Sodium 138 mmol/L N 133-145 [address] [place] [address] [phone] Potassium 4.0 mmol/L N 3.5-5.0 Chloride 108 [...] dialysis) Procedures Date Code Description Status 04/03/2019 16024 EKG Tracing & Interpretation Completed 03/29/2019 76428 ECHO Transthoracic, Real-Time 2D With Doppler And Color Completed Flow 01/25/2018 57041 ECHO Transthoracic, Real-Time 2D With Doppler And Color Completed Flow 01/25/2018 63040 ECHO Transthoracic, Real-Time 2D With Doppler And Color Completed Flow 07/13/2017 73983 EKG Tracing & Interpretation Completed 12/14/2016 20114 EKG Tracing & Interpretation Completed 12/14/2016 00799 EKG Tracing & Interpretation Completed 12/02/2016 11739 Holter Monitor Review (24 hr)dr review & interp only Completed 11/25/2016 91841 ECG Monitor/Recording W/Visual Superimposition Scanning Completed 11/23/2016 53470 EKG Tracing & Interpretation Completed 10/29/2016 33278 EKG Tracing & Interpretation Completed 10/26/2016 65569 ECHO Transthorasic Realtime 2D W Doppler & Color Flow Hosp Completed 10/23/2016 35375 EKG, Interpretation Only Completed 02/04/2016 70789 Carotid Doppler,Bilateral Completed 08/23/2015 99507 EKG Tracing & Interpretation Completed 08/14/2014 06895 ECHO Transthoracic, Real-Time 2D With Doppler And Color Completed Flow 08/03/2014 86133 EKG Tracing & Interpretation Completed 03/23/2014 50138 EKG Tracing & Interpretation Completed 03/21/2014 08569 Holter Monitoring 24 HR New Completed 09/13/2013 04350 EKG, Interpretation Only Completed 08/28/2013 95689 EKG, Interpretation Only Completed 04/18/2013 63802 ECHO Transthoracic, Real-Time 2D With Doppler And Color Completed Flow 03/07/2013 59117 EKG Tracing & Interpretation Completed 02/17/2013 65251 Holter Monitoring 24 HR New Completed 01/01/2007 79373 EKG, Interpretation Only Completed 01/01/2007 70217 EKG, Interpretation Only Completed Encounters Type Date Location Provider Dx Diagnosis Office Visit 04/03/2019 [facility] Gracy Mc, I48.2 Chronic atrial 4:00p Of Rental Manager M.D. fibrillation I35.0 Nonrheumatic aortic (valve) stenosis I34.0 Nonrheumatic mitral (valve) insufficiency I34.2 Nonrheumatic mitral (valve) stenosis R22.1 Localized swelling, mass and lump, neck Office Visit 01/31/2018 2:40p [place] Gracy Mc, I35.1 Nonrheumatic aortic Cardiology Of M.D. 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 I50.9 Heart failure, Of [facility] Khalil, DO unspecified FACC I48.91 Unspecified atrial fibrillation I10 Essential (primary) hypertension Office Visit 10/25/2016 7:13a [facility] Soo Burt, I48.91 Unspecified atrial Assoc,pc N.P. 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 I50.9 Heart failure, Of [employer]ental [employer] Khalil, DO unspecified FACC I48.91 Unspecified atrial fibrillation I10 Essential (primary) hypertension Office Visit 03/23/2016 9:45a [facility] Gracy Mc, I35.0 Nonrheumatic Of [facility] M.DMark aortic (valve) stenosis I35.1 Nonrheumatic aortic (valve) insufficiency I10 Essential (primary) hypertension E78.2 Mixed hyperlipidemia I65.23 Occlusion and stenosis of bilateral carotid arteries Office Visit 08/23/2015 9:00a [place] Gracy Mc, I35.1 Nonrheumatic aortic Cardiology Of M.DMark (valve) Rental Manager insufficiency I35.0 Nonrheumatic aortic (valve) stenosis I10 Essential (primary) hypertension I49.3 Ventricular premature depolarization R09.89 Oth symptoms and signs involving the circ and resp systems R01.1 Cardiac murmur, unspecified I35.2 Nonrheumatic aortic (valve) stenosis with insufficiency Office Visit 08/03/2014 [place] Gracy Mc, V72.81 Examination 1:15p Cardiology Of Jt.[facility] Cardiovascular 401.9 Hypertension Unspec 424.1 Aortic Valve Disorder 427.60 Premature Beats Unspec Office Visit 03/23/2014 [place] Gracy Mc, 272.2 Hyperlipidemia Mixed 9:45a Cardiology Of Joi [facility] 427.60 Premature Beats Unspec 448.0 Telangiectasia Hemorrhagic Hereditary Office Visit 03/07/2013 12:45p [facility] Gracy Mc, 427.69 Premature Beats Of [facility] Jt.Chris Other 427.0 PSVT Paroxysmal Supraventricular Tachycardia 401.9 Hypertension Unspec 424.1 Aortic Valve Disorder Plan of Treatment 04/03/2019 - Gracy Mc M.D.I48.2 Chronic atrial fibrillationComments:Rate is controlled.Follow up:OV 6 months with ECG OV 12 months after next echo, with ECG.Recommendations:Continue with metoprolol for rate control. Digoxen can [...] lung exam.I34.0 Nonrheumatic mitral (valve) insufficiencyComments:Mild to odudmjunR46.2 Nonrheumatic mitral (valve) stenosisComments:Moderate.R22.1 Localized swelling, mass and lump, neckComments:I noted a firm nodule left neck , possibly on the thyroid.F/u with Dr Lemon.
[2019-04-14] MEDS ORDERED: Diltiazem IV push/loading dose 5 MG/ML 5 ML vial (25 mg) IV SLOW PU ONE (08:10)
--- NOTE | 2019-04-14 08:11 | ED ---
Palpitations / Dysrhythmia - HPI Summary HPI Summary: Pt is a 78 y/o F presenting to the ED brought in by EMS for palpitations. Per EMS, the pt has had palpitations for the past couple of days, and her states she has not been taking her medicine, but the patient says she is. EMS states her BP was elevated and her HR was variable. Pt states she noticed her heart was beating very fast yesterday, and the episodes lasted all night. She sees Dr. Mc who has her on a medication for AFib, but she occasionally forgets to take it. She also reports some shakiness and slight dizziness with the palpitations. She denies SOB, abd pain, back pain , and chest pain. - History of Current Complaint Chief Complaint: EDDysrhythmPalp Time Seen by Provider: 04/14/19 07:56 Hx Obtained From: Patient Onset/Duration: Sudden Onset, Lasting Days, Still Present Timing: Constant Severity Initially: Moderate Severity Currently: Moderate Character: Fast Aggravating: Nothing Alleviating: Nothing Associated Signs & Symptoms: Dizzy - Allergy/Home Medications Allergies/Adverse Reactions: Allergies Allergy/AdvReac Type Severity Reaction Status Date / Time chlorpheniramine Allergy Intermediate See Comment Verified 09/15/18 20:52 diphenhydramine Allergy See Comment Verified 09/15/18 20:52 enoxaparin [From Lovenox] Allergy Bleeding Verified 09/15/18 20:52 heparin Allergy Bleeding Verified 09/15/18 20:52 loratadine Allergy See Comment Verified 09/15/18 20:52 rivaroxaban [From Xarelto] Allergy Bleeding Verified 09/15/18 20:52 warfarin Allergy Bleeding Verified 09/15/18 20:52 pepper Allergy Severe coughing Uncoded 09/15/18 20:52 and sneezing antihistamines Allergy heart race Uncoded 09/15/18 20:52 blood thiners AdvReac Severe Bleeding Uncoded 09/15/18 20:52 Home Medications: Home Medications Cholecalciferol (Vitamin D3) [Vitamin D3] 1 tab PO DAILY 04/14/19 [History Confirmed 04/14/19] PMH/Surg Hx/FS Hx/Imm Hx Previously Healthy: No Endocrine/Hematology History: Reports: Other Endocrine/Hematological Disorders - epistaxis (HHT), Osler Telangiectasia Denies: Hx Anticoagulant Therapy, Hx Sickle Cell Disease Cardiovascular History: Reports: Hx Atrial Fibrillation, Hx Congestive Heart Failure, Hx Coronary Artery Disease, Hx Hypertension - ON MEDS PT STATES CONTROLLED, Other Cardiovascular Problems/Disorders - Mitral Valve disorder Respiratory History: Reports: Other Respiratory Problems/Disorders - HX OF EPISTAXIS, HAS ONE NOW, SOUND STUFFY DUE TO PACKING IN NOSE PRESENTLY GI History: Denies: Other GI Disorders History: Denies: Other Problems/Disorders Musculoskeletal History: Reports: Hx Arthritis, Other Musculoskeletal History - left Hip Fx with repair 09/25/16 Denies: Hx Osteoporosis Sensory History: Reports: Hx Cataracts - bilat surgery, Hx Contacts or Glasses - reading small print, Hx Hearing Aid - LEFT EAR Opthamlomology History: Reports: Hx Cataracts - bilat surgery, Hx Contacts or Glasses - reading small print Neurological History: Denies: Hx Headaches, Hx Seizures, Hx Transient Ischemic Attacks (TIA), Other Neuro Impairments/Disorders Psychiatric History: Denies: Hx Anxiety, Hx Depression - Cancer History Hx Chemotherapy: No - Surgical History Surgery Procedure, Year, and Place: SEVERAL NOSE SURGERIES FOR EPISTAXIS, [facility] + . PARTIAL HYSTERECTOMY IN [place] , [place]. left Hip Fx with repair . bilat cataract surgery with IOL Hx Anesthesia Reactions: No Infectious Disease History: No Infectious Disease History: Denies: Traveled Outside the [place] in Last 30 Days - Family History Known Family History: Negative: Hypertension, Diabetes - Social History Alcohol Use: Daily Alcohol Amount: 2 GLASS WINE/NIGHT Hx Substance Use: No Substance Use Type: Reports: None Hx Tobacco Use: No Smoking Status (MU): Never Smoked Tobacco Review of Systems Positive: Other - shakiness Positive: Palpitations. Negative: Chest Pain Negative: Shortness Of Breath Negative: Abdominal Pain Negative: Myalgia Neurological: Other - dizziness All Other Systems Reviewed And Are Negative: Yes Physical Exam - Summary Physical Exam Summary: Appearance: Well-appearing, Well-nourished, lying in bed comfortably Skin: Warm, dry, no obvious rash Eyes: sclera anicteric, no conjunctival pallor ENT: mucous membranes moist, pharynx appears normal Neck: Supple, nontender Respiratory: Clear to auscultation, no signs of respiratory distress Cardiovascular: Rapid irregular pulse. No murmurs. Normal distal pulses in tibial and radial bilaterally. Abdomen: Soft, nontender, normal active bowel sounds present Musculoskeletal: Normal, Strength/ROM Intact Neurological: A&Ox3, awake and alert, mentation is normal, speech is fluent and appropriate Psychiatric: affect is normal, does not appear anxious or depressed Triage Information Reviewed: Yes Vital Signs On Initial Exam: Initial Vitals Temp Pulse Resp BP Pulse Ox 97.7 F 125 26 201/134 92 04/14/19 07:57 04/14/19 07:57 04/14/19 07:57 04/14/19 07:57 04/14/19 07:57 Vital Signs Reviewed: Yes Diagnostics - Vital Signs Vital Signs Temp Pulse Resp BP Pulse Ox 04/14/19 07:57 97.7 F 125 26 201/134 92 - Laboratory Result Diagrams: 04/14/19 08:20 04/14/19 08:20 Lab Statement: Any lab studies that have been ordered have been reviewed, and results considered in the medical decision making process. - Radiology CXR Radiology Interpretation Completed By: Radiologist Summary of Radiographic Findings: Bibasilar infiltrates and moderate size R pleural effusion. ED physician has reviewed this report. - EKG 0757 Cardiac Rate: Other Rate - 123 AFib EKG Rhythm: Atrial Fibrillation ST Segment: Normal Ectopy: None Summary of EKG Findings: EKG at 0757 shows atrial fibrillation at 123bpm with LVH and no STEMI. Course/Dx - Course Course Of Treatment: Pt is a 78 y/o F presenting to the ED brought in by EMS for palpitations onset yesterday and lasting through the night, described as fast. She is on medication for AFib, but occasionally forgets to take it. She also reports some shakiness and slight dizziness with the palpitations. She denies SOB, abd pain, back pain, and chest pain. Pt's initial troponin is 1.05 , and her BNP is >1300. EKG at 0757 shows atrial fibrillation at 123bpm with LVH and no STEMI. [address] Akers about the pts present condition who will be accepting her to [facility]. CXR shows: Bibasilar infiltrates and moderate size R pleural effusion. Her dx will include AFib with RVR, R pleural effusion, and NSTEMI. - Diagnoses Provider Diagnoses: Atrial fibrillation with RVR, Pleural effusion, right, NSTEMI (non-ST elevated myocardial infarction) Discharge - Sign-Out/Discharge Documenting (check all that apply): Patient Departure Patient Received Moderate/Deep Sedation with Procedure: No - Discharge Plan Condition: Stable Disposition: ADMITTED TO [facility] Referrals: Velvet Lemon MD [Primary Care Provider] - - Billing Disposition and Condition Condition: STABLE Disposition: Admitted to [facility] - Attestation Statements Document Initiated by [place]: Yes Documenting Scribe: Neisha Otero Provider For Whom Belem is Documenting (Include Credential): Albaro Loaiza MD. Scribe Attestation: Neisha Mayorga, scribed for Albaro Loaiza MD. on 04/14/19 at 0919. Scribe Documentation Reviewed: Yes Provider Attestation: The documentation as recorded by the Neisha golden accurately reflects the service I personally performed and the decisions made by me, Albaro Loaiza MD. Status of Scribe Document: Viewed Consult Consult: [address] Akers about the pts present condition who will be accepting her to [facility].
[2019-04-14 08:25] LABS: ABS Basophils 0.1 10^3/ul (0-0.2); ABS Lymphocytes 0.5 10^3/ul (1.0-4.8); ABS Monocytes 1.2 10^3/ul (0-0.8); ABS Neutrophils 8.6 10^3/ul (1.5-7.7); Hematocrit 39 % (35-47); Hemoglobin 12.7 g/dL (12.0-16.0); Lymphocyte % 4.4 %; Mean Corpuscular HGB Conc 33 g/dL (31-36); Mean Corpuscular Hemoglobin 27 pg (27-31); Mean Corpuscular Volume 82 fL (80-97); Mean Platelet Volume 8.4 fL (7.4-10.4); Nucleated Red Blood Cells % 0.1; Platelet Count 220 10^3/uL (150-450); Red Blood Count 4.74 10^6 /uL (3.70-4.87); Red Cell Distribution Width 17 % (10-15); White Blood Count 10.3 10^3/uL (3.5-10.8)
[2019-04-14 08:43] LABS: INR 1.5 (0.82-1.09)
[2019-04-14 08:44] LABS: Albumin 3.5 g/dL (3.2-5.2); Albumin/Globulin Ratio 0.8 (1-3); BUN/Creatinine Ratio 22.6 (8-20); Calcium 10.5 mg/dL (8.6-10.3); EGFR African American 135.3 (>60); EGFR Non-African American 111.9 (>60); Globulin 4.3 g/dL (2-4); Potassium 4.4 mmol/L (3.5-5.0); Total Bilirubin 1.9 mg/dL (0.2-1.0); Total Protein 7.8 g/dL (6.4-8.9)
[2019-04-14 08:49] LABS: Troponin I 1.05 ng/mL (<0.04)
[2019-04-14] MEDS ORDERED: Iohexol 350* (CONTRAST) 500 ML MDV IV ONE (09:06)
[2019-04-14] MEDS ORDERED: Ondansetron INJ* 2 MG/ML VIAL IV PRN (10:55)
[2019-04-14] MEDS ORDERED: Acetaminophen TAB* 325 MG PO PRN (10:55)
[2019-04-14 11:18] LABS: HDL Cholesterol 44.5 mg/dL
[2019-04-14] MEDS: Metoprolol Succinate XL TAB* 50 MG PO SCH (11:37)
[2019-04-14 11:43] LABS: Troponin I 1.1 ng/mL (<0.04)
[2019-04-14 15:04] LABS: Troponin I 1.06 ng/mL (<0.04)
--- NOTE | 2019-04-14 15:09 | HP ---
CC: Dr. Lemon; Dr. Bryan Abdalla; Dr. Gracy Mc * ADMISSION HISTORY AND PHYSICAL: DATE OF ADMISSION: 04/14/19 PRIMARY CARE PROVIDER: Dr. Lemon. MY ATTENDING WHILE IN THE HOSPITAL: Dr. Patricia Amaya.* (DICTATED BY TRISHA BAIN) CONSULTING CHANNEL SUPERVISOR: Dr. Bryan Abdalla. OUTPATIENT CHANNEL SUPERVISOR: Dr. Gracy Mc. CHIEF COMPLAINT: Palpitations, shortness of breath x1 day. HISTORY OF PRESENT ILLNESS: Ms. Hensley is a 78-year-old female with past medical history significant for chronic atrial fibrillation, history of heart failure with preserved ejection fraction with pulmonary hypertension as well as hemorrhagic telangiectasia syndrome, and aortic stenosis, who presents to the emergency department after 2 days ago she was feeling in normal state of health when yesterday in the morning she began to feel palpitations like her heart was pounding in her chest. She also has significantly decreased exercise tolerance after having excellent exercise tolerance on the day before [place] the [place] of the day to being able to only walk several feet before getting short of breath. The patient denies any presyncope , but did feel somewhat lightheaded and shaky at times. The patient's took her heart rate and it was generally between 100 and 120. The patient had some chest pressure, but no any chest pain possibly radiating to the arms or the neck. The patient recently had her digoxin stopped by her outpatient funeral limousine driver Dr. Mc due to concern for appetite suppression. The patient did not notice a change in her appetite recently. The patient has lost 24 pounds over the past year, which she ascribes to early satiety and occasional vomiting in the morning related to her postnasal drip from chronic sinus problems. The patient denies any lower extremity edema. The patient never to her recollection had a cardiac catheterization. Had a stress test last year which she states was normal. The patient had a transthoracic echocardiogram at the end of March, which showed a preserved ejection fraction, aortic stenosis, and severe pulmonary hypertension consistent with previous exams. The patient had no other recent illnesses. No abdominal pain, diarrhea, or pain with urination. No rashes. The patient per her had not been taking all of her Toprol. Recently was prescribed 3 times a day and she has not been taking all of these doses. In the emergency department, the patient was found to be in atrial fibrillation with the rate in the 120s with a significantly elevated blood pressure at initially 201/134. The patient had troponin elevated at 1.05 , BNP of greater than 1300, elevated bilirubin and alkaline phosphatase. The patient had no ischemic changes on her EKG. The patient's heart rate was controlled with IV diltiazem, and we were asked to evaluate the patient for admission to the hospital due to concern for heart failure exacerbation. PAST MEDICAL HISTORY: Hereditary hemorrhagic telangiectasia syndrome, CAD, hypertension, aortic stenosis, pulmonary hypertension, hyperlipidemia, heart failure with preserved ejection fraction, atrial fibrillation, liver mass, epistaxis. PAST SURGICAL HISTORY: Multiple laser nasal procedures, ORIF in 2016, partial hysterectomy in her 20s. MEDICATIONS: 1. Lisinopril 2.5 mg p.o. daily. 2. Cholecalciferol 1000 units p.o. daily. 3. Metoprolol succinate 100 mg p.o. b.i.d. ALLERGIES: ANTIHISTAMINES, ANTICOAGULANTS. FAMILY HISTORY: The patient's father and oldest brother of colon cancer. The patient had 2 other siblings who of lung cancer. The patient's mother at 91 and had hypertension. SOCIAL HISTORY: The patient has never smoked. The patient drinks a glass of white wine nightly. The patient denies illicit drug use. 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 The patient is and has 3 children. Her surrogate decision maker will be her Leonard Hensley. REVIEW OF SYSTEMS: A 14-point review of systems was reviewed and is negative except as above in the HPI. PHYSICAL EXAMINATION GENERAL: The patient is a 78-year-old female who appears stated age, sitting comfortably in bed, in no acute distress. VITAL SIGNS: At the time of evaluation, temperature 97.7, pulse rate 71, respiratory rate 26, oxygen saturation 94% on 2 L, blood pressure 158/71. HEENT: Head: Normocephalic, atraumatic. Sclerae anicteric. No conjunctival injection. Nasal mucosa moist. Oral mucosa moist. No pharyngeal erythema, discharge, or exudate. NECK: Supple, nontender. No lymphadenopathy. No carotid bruits auscultated. No JVD. RESPIRATORY: Diminished breath sounds in the right lower lobe, crackles in the left lower lobe, crackles in the right middle lobe. No wheezing or other adventitious lung sounds. CARDIAC: Regular rate and rhythm. No clicks, murmurs, gallops, or rubs. Pulses are 2+ in the bilateral dorsalis pedis, posterior tibialis, and radial areas. ABDOMEN: Soft, nontender, nondistended. Bowel sounds present and normoactive in all 4 quadrants. No hepatosplenomegaly. No abdominal bruits auscultated. No hepatojugular reflux. GENITOURINARY: No suprapubic or CVA tenderness. EXTREMITIES: No bilateral lower extremity edema. No bilateral calf tenderness noted. NEURO: Cranial nerves II through XII intact. No focal deficits. Alert and oriented x3. PSYCHIATRIC: Pleasant and cooperative. SKIN: Clean, dry, and intact. No rashes. DIAGNOSTIC STUDIES/LAB DATA: White blood cell count 10.3, hemoglobin 12.7, platelet count 220,000. Sodium 136, potassium 4.4, chloride 103, carbon dioxide 28, anion gap 5, BUN 12, creatinine 0.53, glucose 136, calcium 10.5, bilirubin 1.9. AST 38, ALT 18, alkaline phosphatase . BNP greater than 1300, protein 7.8, albumin 3.5, globulin is 4.3. Studies: EKG shows atrial fibrillation, rate of 123, QTC of 490. No ST segment elevation or depression. Left axis deviation, possible left ventricular hypertrophy. No other hypertrophy or enlargement compared to previous exam. There are no significant changes except for faster rate. Chest x-ray read as bibasilar infiltrates and moderate size right pleural effusion. Chest thorax CTA read as no evidence of pulmonary embolism, large right pleural effusion, small left pleural effusion with cardiomegaly, no evidence of aneurysmal dilatation of the aorta, interstitial edema. ASSESSMENT AND PLAN/IMPRESSION: Ms. Hensley is a 78-year-old female with past medical history significant for hemorrhagic hereditary telangiectasia syndrome, chronic atrial fibrillation, heart failure with preserved ejection fraction with pulmonary hypertension, who recently has been having some medication changes and medication noncompliance with her weight control agents, found in the emergency department to be in atrial fibrillation with rapid ventricular response and heart failure with an elevated troponin. The patient was admitted to the hospital for diuresis, cardiology consultation, and rate control. 1. Acute on chronic heart failure with preserved ejection fraction. The patient appears to be in congestive heart failure with orthopnea, dyspnea on exertion, pulmonary edema, pleural effusion. This likely has been exacerbated by elevated blood pressure and elevated heart rate likely from rebound from missing the patient's metoprolol doses as well as discontinuation of the patient 's digoxin. This is likely half the cause of the patient's troponin elevation. Though significantly elevated, the patient has no chest pain currently and no signs on her EKG of type 1 CO. The patient will be diuresed. The patient's blood pressure and heart rate will be controlled. The patient's troponin will be trended. The patient will be risk stratified with a lipid profile and hemoglobin A1c. The patient was seen in consultation by Cardiology for consideration of a catheterization; however, this is unlikely to be beneficial as if central stenosis was found, the patient would not be able to take antiplatelet agents limiting the efficacy of treatment. The patient will have strict I's and O's and daily weights as well. Hold the patient's lisinopril at this time due to the intensive diuresis and dye load from the CTA. There was some concern that the patient's pleural effusion may be related to her liver mass given the patient's obvious other signs of fluid overload. There will be limited utility in a thoracentesis at this time. If the patient's pleural effusions are persistent and refractory and symptomatic, a thoracentesis may be considered. 2. Atrial fibrillation with rapid ventricular response. Continue the patient' s metoprolol. Consideration for resuming the patient's digoxin, this will be deferred to Cardiology. 3. Coronary artery disease. It is unclear how this diagnosis was made. We will obtain lipid profile and hemoglobin A1c. The patient is not on a statin. It is very likely the patient should be on a statin. This will be pending the patient's lipid profile results. 4. Liver mass. Continue outpatient workup with endoscopic ultrasound. 5. DVT prophylaxis: SCDs only in the setting of hemorrhagic telangiectasia syndrome. 6. Hereditary hemorrhagic telangiectasia syndrome. The patient is not actively bleeding. The patient is not anemic. Avoid anticoagulants as above. 7. FEN: The patient will have heart healthy diet without caffeine. The patient is fluid overloaded, is not on any fluid at this time. 8. Disposition: The patient will be admitted for observation to the hospital. TIME SPENT: Approximately 60 minutes was spent on the admission of this patient , 30 of which was spent [id number] with the patient, obtaining history and physical, and discussing treatment plan. The plan was discussed with my attending Dr. Patricia Amaya, and she is in agreement. TRISHA BAIN [id number]/[facility] #: [id number] KJ
[2019-04-14 15:18] LABS: TSH (Thyroid Stimulating Horm) 1.37 mcIU/mL (0.34-5.60)
[2019-04-14] MEDS ORDERED: Digoxin IV* 0.5 MG/2 ML AMP (0.25 MG/ML) IV SLOW PU ONE ×2 (17:09→21:15)
[2019-04-14] MEDS: Furosemide IV* 10 MG/ML VIAL (40 MG) IV SLOW PU SCH (17:22)
--- NOTE | 2019-04-14 18:20 | CONS ---
CC: Dr. Gracy Mc; Dr. Velvet Lemon CARDIOLOGY CONSULTATION: DATE OF CONSULT: 04/14/19 REFERRING PHYSICIAN: TRISHA Vargas REASON FOR CARDIOLOGY CONSULTATION: Elevated troponin in a patient with recent chest pain and known Rffng-Wdvat-Ptpaf syndrome. HISTORY OF PRESENT ILLNESS: I was kindly asked by Mark Galvin to see this patient for Cardiology consultation. Ms. Hensley follows with my partner, Dr. Gracy Mc of [facility]. Due to weight loss and concern for digoxin contribution to that, her digoxin was stopped 04/03/19 according to the patient's . The patient 2 days ago began developing chest pain and palpitations. Today, she was scheduled to go to [facility] for GI evaluation, but her decided to call 911 to have her brought to the emergency room. Here, she is found to have elevated troponin. The patient denies chest pain at least at this time that is significant. She was also quite short of breath during this chest pain episode for the past 2 days. She did not have any radiation of her symptoms. She has not had prior coronary artery bypass surgery, stent, or valve surgery. PAST MEDICAL HISTORY: [facility] Atrial Fibrillation - 10/24/16, chronic, no anticoagulation due to epistaxis hx w/ OWR Hypertension PVC'S Mitral Regurgitation Aortic Insufficiency Aortic Stenosis - 2019: Moderate. Pulmonary Hypertension - 2019: PApr 65 mmHg. Liver mass being evaluated. Blood transfusions for severe epistaxis due to Hereditary Hemmorhagic Telangectasias. Hospitalizations: Atrial Fibrillation - (10/24/2016) Cardiac Testing: Echocardiogram - (03/29/2019) [facility] Left ventricle cavity is normal in size. Moderate concentric hypertrophy. Visual EF is 60-65%. DD II, elev. LVEDP. Mild AI, Moderate MOD : MG 24 mmHg, CRISTA 0.8 cm2, AV peak velocity 3.34 m/s. Mild to moderate MR w/prolapse. Moderate MS: mean gradient 3mmHg. Mild TR. Moderate to severe pulmonary hypertension: 65 mmHg. Small pericardial effusion. Stress Echocardiogram - 09/29/11: septal dyskinesis, LVEF 50%, PVC's and HTN off beta ivon. No inducable ischemia PAST SURGICAL HISTORY: Includes multiple laser nasal procedures, ORIF in 2016, partial hysterectomy in her 20s. OUTPATIENT MEDICATIONS: 1. Lisinopril 2.5 mg once a day. 2. Cholecalciferol 1000 units once a day. 3. Metoprolol succinate 100 mg p.o. b.i.d. Again, the patient's digoxin was stopped recently. ALLERGIES TO MEDICATIONS: Listed as BLOOD THINNERS and ANTIHISTAMINES. FAMILY HISTORY: Positive for cardiac disease. SOCIAL HISTORY: The patient does not smoke cigarettes. Abused alcohol as she drinks 2 glasses of wine per night. She has been for 58 years. 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 She does not do regular exercise. REVIEW OF SYSTEMS: She denies personal history of stroke, cancer, vomiting up blood, coughing up blood, bright red blood per rectum, or bleeding stomach ulcers currently; however, she has had significant bleeding in the past including requiring blood transfusions. She denies renal calculi, cholelithiasis, asthma, emphysema, pneumonia, tuberculosis, sleep apnea, home oxygen use, diabetes. She does have a history of hypertension. She denies prior bypass surgery, PCI, or valve surgery. She has chronic atrial fibrillation. Since stopping the digoxin, her weight loss did not improve. She denies psychiatric illnesses. She denies lupus, psoriasis, seizures, Parkinson disease, myasthenia gravis, thyroid disorders, liver disorders, kidney disorders, claudication symptoms, pulmonary emboli, deep venous thrombosis, peripheral arterial disease, renal dysfunction. She has lost 20 pounds over the past year. She has a liver mass, which is being evaluated. She denies heartburn or peripheral edema. All other review of systems are negative x14 except as per this documentation. PHYSICAL EXAM: Height 5 feet 8 inches, weight 121 pounds. Temperature 98.5 degrees Fahrenheit, pulse is ranging from 83 to 121 after she was placed on a beta- ivon and Cardizem drip here, O2 saturation 93%. The patient's initial heart rate on the EKG in the ER was 123. On general exam, she is a pleasant, pale appearing lady who may have some memory impairment, in no acute distress. Her is quite helpful with the history provision. HEENT shows the cranium is normocephalic and atraumatic. She has dry mucosal membranes. Neck veins are not distended. There are no carotid bruits. Visible skin warm and perfused. Affect appropriate. She appears grossly oriented. Formal mini- mental status exam not done. Mild kyphoscoliosis on back exam. She is quite thin. Lungs are clear to auscultation. No wheezes, no rales. Cardiac Exam: S1, S2. Regular rate. A 2/6 systolic ejection murmur heard with preserved aortic component, second heart sound. There is no rub, no gallop. PMI is nondisplaced. Abdomen: Soft and nondistended, appears benign. Extremities: Without significant edema. Pulses appear intact. DIAGNOSTIC STUDIES/LAB DATA: A 12-lead EKG completed 04/14/19 at 7:57 shows atrial fibrillation at 123 beats per minute with LVH. Sodium 136, potassium 4.4, chloride 103, bicarbonate 28, BUN 12, creatinine 0.53. Troponin is 1.05 on admission, followed by 1.10, followed by 1.06. BNP 1300. TSH 1.37. ALT 18. INR 1.5. White blood cell count 10.3, hematocrit 39 , platelet count 220,000. IMPRESSION: Ms. Hensley is a pleasant 78-year-old woman with a history of chronic atrial fibrillation. She appears to have had recent non-Q-wave myocardial infarction, which may have been demand mediated with increased heart rates off of her digoxin. She is very adamant that she does not want to take any blood thinners including even baby aspirin, which I can understand given her significant hereditary hemorrhagic telangiectasia with life-threatening epistaxis requiring blood transfusions in the past. RECOMMENDATIONS: 1. I think it is reasonable to restart digoxin for heart rate control, especially as she did not have significant benefit in terms of her weight increasing and/or her appetite improving off of the digoxin. 2. Continue Toprol-XL and increase dose as required with aim to keep heart rate less than 100; per the patient's , the patient's heart rate is usually in the 70s. I do think it is reasonable to start her on a statin for plaque stabilization and again we cannot give her any antiplatelet agents or blood thinners. 3. Plan echocardiogram and cardiac chemical nuclear stress test early next week (today is Wednesday of the prior week) once the patient is more stabilized for further cardiovascular risk stratification. Revascularization even with BMS (if needed) will be a complex decision due to patient's history of HHT and life threatening epistaxis. 4. Other management as per the hospitalist medicine service and I have discussed the case with Mr. Galvin. 5. The patient may follow up with her usual rn invasive, Dr. Mc post discharge. I also discussed the case with the patient and her . They appear to be in agreement with these recommendations. The patient is adamant that she does not want to take any blood thinners and understands medical risks and benefits inherent in that decision. Dear Harjeet Galvin, many thanks for asking me to participate in the cardiovascular consultative care of Ms. Hensley. Please do not hesitate to contact me if you have any questions or concerns regarding the patient's cardiovascular consultative care. [id number]/[facility] #: [id number] KJ
--- NOTE | 2019-04-14 18:46 | HP ---
HISTORY AND PHYSICAL: ADDENDUM: HISTORY OF PRESENT ILLNESS: The case was reviewed and discussed with TRISHA Vargas. Ms. Hensley is a 78-year-old female with a past medical history of hereditary hemorrhagic telangiectasia syndrome , coronary artery disease, hypertension, aortic stenosis, pulmonary hypertension, heart failure with preserved ejection fraction, atrial fibrillation, who presented to the emergency room with complaints of palpitations and shortness of breath for 1 day. She has missed some doses of her rate control me dication. CTA of the chest shows known pleural effusion and it was negative for pulmonary embolism. IMPRESSION AND PLAN: The patient's troponin is elevated, but in the setting of chronic heart failure exacerbation and atrial fibrillation with rapid ventricular response. The plan is to continue rate control and continue to monitor. [id number]/[facility] #: [id number]
[2019-04-14] MEDS: Metoprolol Succinate XL TAB* 100 MG PO SCH (21:17)
[2019-04-15 04:59] LABS: Hematocrit 37 % (35-47); Hemoglobin 11.9 g/dL (12.0-16.0); Mean Corpuscular HGB Conc 33 g/dL (31-36); Mean Corpuscular Hemoglobin 26 pg (27-31); Mean Corpuscular Volume 81 fL (80-97); Mean Platelet Volume 8.6 fL (7.4-10.4); Platelet Count 180 10^3/uL (150-450); Red Blood Count 4.54 10^6 /uL (3.70-4.87); Red Cell Distribution Width 17 % (10-15)
[2019-04-15 05:02] LABS: ABS Lymphocytes 0.6 10^3/ul (1.0-4.8); ABS Monocytes 1.6 10^3/ul (0-0.8); ABS Neutrophils 8.7 10^3/ul (1.5-7.7); Eosinophil % 0.1 %; Lymphocyte % 5.8 %; Nucleated Red Blood Cells % 0.1
[2019-04-15 05:17] LABS: ALT 15 U/L (7-52); AST 29 U/L (13-39); Albumin 3.1 g/dL (3.2-5.2); Albumin/Globulin Ratio 0.8 (1-3); Alkaline Phosphatase 153 U/L (34-104); Anion Gap 6 mmol/L (2-11); BUN/Creatinine Ratio 26.9 (8-20); Blood Urea Nitrogen 14 mg/dL (6-24); CO2 Carbon Dioxide 28 mmol/L (22-32); Calcium 9.8 mg/dL (8.6-10.3); Chloride 101 mmol/L (101-111); EGFR African American 138.4 (>60); EGFR Non-African American 114.3 (>60); Globulin 3.7 g/dL (2-4); Glucose 122 mg/dL (70-100); Magnesium 1.6 mg/dL (1.9-2.7); Potassium 3.5 mmol/L (3.5-5.0); Sodium 135 mmol/L (135-145); Total Protein 6.8 g/dL (6.4-8.9)
[2019-04-15 05:24] LABS: Troponin I 0.69 ng/mL (<0.04)
[2019-04-15 05:43] LABS: Digoxin 1.3 ng/ml (0.8-2.0)
[2019-04-15] MEDS ORDERED: Digoxin IV* 0.5 MG/2 ML AMP (0.25 MG/ML) IV SLOW PU ONE (08:00)
[2019-04-15] MEDS: Furosemide IV* 10 MG/ML VIAL (40 MG) IV SLOW PU SCH ×2 (08:42→16:10)
[2019-04-15] MEDS: Cholecalciferol TAB* 1000 UNITS PO SCH (08:42)
[2019-04-15] MEDS: Metoprolol Succinate XL TAB* 100 MG PO SCH ×2 (08:42→20:18)
[2019-04-15] MEDS: Metoprolol Succinate XL TAB* 50 MG PO SCH (13:41)
--- NOTE | 2019-04-15 15:13 | PN ---
Subjective Date of Service: 04/15/19 Interval History: Patient today fells well, denies CP, Palpitations, F/C, N/V, abdominal pain, diarrhea, dysuria, or other pain. Patient is amenable to ischemic workup. Patient states SOB has improved. Family History: Unchanged from Admission Social History: Unchanged from Admission Past Medical History: Unchanged from Admission Objective Active Medications: Acetaminophen (Tylenol Tab*) 650 mg PO Q6H PRN PRN Reason: FEVER/PAIN Atorvastatin Calcium (Lipitor*) 40 mg PO 1700 [facility] Cholecalciferol (Vitamin D Tab*) 1,000 units PO DAILY [facility] Last Admin: 04/15/19 08:42 Dose: 1,000 units Digoxin (Lanoxin Tab*) 0.125 mg PO 1700 [facility] Furosemide (Lasix Iv*) 40 mg IV SLOW PU 0800,1700 [facility] Last Admin: 04/15/19 08:42 Dose: 40 mg Metoprolol Succinate (Toprol Xl Tab*) 50 mg PO 1200 [facility] Last Admin: 04/15/19 13:41 Dose: 50 mg Metoprolol Succinate (Toprol Xl Tab*) 100 mg PO BID [facility] Last Admin: 04/15/19 08:42 Dose: 100 mg Ondansetron HCl (Zofran Inj*) 4 mg IV Q6H PRN PRN Reason: NAUSEA Vital Signs - 8 hr 04/15/19 04/15/19 04/15/19 07:17 08:00 08:42 Temperature 98.2 F Pulse Rate 93 90 Respiratory 18 18 Rate Blood Pressure 155/80 (mmHg) O2 Sat by Pulse 90 Oximetry 04/15/19 11:27 Temperature 98.4 F Pulse Rate 77 Respiratory 16 Rate Blood Pressure 136/49 (mmHg) O2 Sat by Pulse 92 Oximetry Oxygen Devices in Use Now: None Appearance: Patient is a 78yo female who appears stated age and is sitting in the bed in [facility]. Eyes: No Scleral Icterus, PERRLA Ears/Nose/Mouth/Throat: NL Teeth, Lips, Gums, Clear Oropharnyx, Mucous Membranes Moist Neck: NL Appearance and Movements; NL JVP, Trachea Midline Respiratory: Symmetrical Chest Expansion and Respiratory Effort, Clear to Auscultation Cardiovascular: NL Sounds; No Murmurs; No JVD, RRR, - - 1+ B/L LE edema. Abdominal: NL Sounds; No Tenderness; No Distention, No Hepatosplenomegaly Lymphatic: No Cervical Adenopathy Skin: No Rash or Ulcers, No Nodules or Sclerosis Neurological: Alert and Oriented x 3, NL Sensation, NL Muscle Strength and Tone , - - CN II-XII intact. Result Diagrams: 04/15/19 04:53 04/15/19 04:53 Assess/Plan/Problems-Billing Assessment: Patient is a 78yo female with a PMH for HTN, Afib, HFpEF, and HHT syndrome who presents with afib with RVR and HFpEF exacerbation with elevated troponin. Patient is feeling better today and is pending ischemic workup on Wednesday. - Patient Problems (1) Afib Current Visit: No Status: Acute Code(s): I48.91 - UNSPECIFIED ATRIAL FIBRILLATION SNOMED Code(s): 17245706 Comment: - Rate control with Metoprolol and Digoxin. - Digoxin was recently stopped and was missing doses of Metoprolol. Loaded with Digoxin again overnight - Possibly rebound tachycardia precipitating symptoms - RVR likely exacerbates HFpEF - (2) Elevated troponin Current Visit: Yes Status: Acute Code(s): R74.8 - ABNORMAL LEVELS OF OTHER SERUM ENZYMES SNOMED Code(s): 265057454 Comment: - Peaked at 1.1 - Appreciate Cardiology Consult, Had CP ELEVATOR EXAMINER AND ADJUSTER - Echo and stress test pending (3) CHF (congestive heart failure) Current Visit: No Status: Acute Code(s): I50.9 - HEART FAILURE, UNSPECIFIED SNOMED Code(s): 13964622 Comment: - Suspect CHF related to afib - Continue digoxin, metoprolol - Echo pending - Continue IV lasix at this time. (4) Hereditary hemorrhagic telangiectasia Current Visit: No Status: Chronic Code(s): I78.0 - HEREDITARY HEMORRHAGIC TELANGIECTASIA SNOMED Code(s): 68079437 Comment: - Precludes anti-platelets and anticoagulants. (5) DVT prophylaxis Current Visit: No Status: Acute Code(s): GHZ7952 - SNOMED Code(s): 215990668 Comment: - SCDs only, anticoagulation contraindicated. Status and Disposition: Inpatient for ischemia evaluation and CHF exacerbation.
[2019-04-15] MEDS: Atorvastatin* 40 MG TAB PO SCH (16:09)
[2019-04-15] MEDS: Digoxin TAB* 0.125 MG PO SCH (16:09)
[2019-04-16 05:27] LABS: ABS Lymphocytes 0.7 10^3/ul (1.0-4.8); ABS Monocytes 1.5 10^3/ul (0-0.8); ABS Neutrophils 6.3 10^3/ul (1.5-7.7); Eosinophil % 0.5 %; Hematocrit 39 % (35-47); Hemoglobin 12.9 g/dL (12.0-16.0); Lymphocyte % 8.1 %; Mean Corpuscular HGB Conc 33 g/dL (31-36); Mean Corpuscular Hemoglobin 26 pg (27-31); Mean Corpuscular Volume 80 fL (80-97); Mean Platelet Volume 8.4 fL (7.4-10.4); Platelet Count 192 10^3/uL (150-450); Red Cell Distribution Width 17 % (10-15); White Blood Count 8.5 10^3/uL (3.5-10.8)
[2019-04-16 05:38] LABS: BUN/Creatinine Ratio 30.6 (8-20); Calcium 9.9 mg/dL (8.6-10.3); EGFR African American 148.2 (>60); EGFR Non-African American 122.5 (>60); Magnesium 1.5 mg/dL (1.9-2.7); Potassium 2.9 mmol/L (3.5-5.0)
[2019-04-16] MEDS ORDERED: Magnesium Sulf 4 GM/100 ML IV* 4,000 MG/100 ML BAG IVPB ONE (07:05)
[2019-04-16] MEDS ORDERED: Potassium Chloride* LIQUID 20 MEQ/15 ML UDC PO ONE (07:06)
[2019-04-16 07:45] LABS: Digoxin 1.2 ng/ml (0.8-2.0)
[2019-04-16] MEDS: KCL 20 MEQ/100 ML IVPREMIX* 20 MEQ/100 ML BAG IV SCH ×3 (08:51→16:59)
[2019-04-16] MEDS: Torsemide TAB 10 MG PO SCH (08:51)
[2019-04-16] MEDS: Metoprolol Succinate XL TAB* 100 MG PO SCH ×2 (08:51→21:06)
[2019-04-16] MEDS: Cholecalciferol TAB* 1000 UNITS PO SCH (08:51)
--- NOTE | 2019-04-16 11:19 | ECHO ---
*[facility]* [place] [address] Fax #: [phone] Transthoracic Echocardiogram Patient: Ayden, Height: 68 in / Aminah Carrasco 172.7 cm : 1940 Weight: 120.7 lb / Study Date: 04/16/2019 54.9 kg Age: 78 BP: 120 / 40 Gender: F BMI/BSA: 18.4 HR: 70 bpm kg/m^2 / 1.65 m^2 *Tour Guide: * Luz Sutton [facility] *Referring Physician: * Harjeet Galvin *Reading Physician: * Bryan Abdalla MD Indications: Chest Pain, unspecified. History: Atrial fibrillation. Congestive heart failure. Risk factors: Hypertension. Conclusions Summary: 1. Left ventricle: The cavity size is below normal. There is moderate concentric hypertrophy. Systolic function is normal. The estimated ejection fraction is 55-60%. Wall motion is normal; there are no regional wall motion abnormalities. 2. Left atrium: The atrium is severely dilated. 3. Right atrium: The atrium is moderately dilated. 4. Mitral valve: The findings are consistent with mild stenosis. There is mild regurgitation. 5. Aortic valve: The findings are consistent with moderate stenosis. There is mild to moderate regurgitation. 6. Ascending aorta: The ascending aorta is mildly dilated. 7. Since the prior echocardiogram completed 03/29/19, pertinent changes are prior normal left ventricular size reported and prior mildly dilated ascending aorta not reported. Study data: Transthoracic echocardiogram. Procedure: Transthoracic echocardiography was performed. Image quality was fair. Complete 2D, spectral Doppler, and color flow Doppler. Location: Bedside. Patient status: Inpatient. Patient room number: 448-2. Rhythm: Atrial fibrillation. Findings Left ventricle: The cavity size is below normal. There is moderate concentric hypertrophy. Systolic function is normal. The estimated ejection fraction is 55-60%. Wall motion is normal; there are no regional wall motion abnormalities. Left ventricular diastolic function parameters are indeterminate. Right ventricle: The cavity size is normal. The moderator band is in a normal position. Systolic function is normal. Left atrium: The atrium is severely dilated. Right atrium: The atrium is moderately dilated. Mitral valve: The annulus is calcified. The leaflets are mildly thickened. The findings are consistent with mild stenosis. There is mild regurgitation. Aortic valve: The valve is trileaflet. The leaflets are mildly calcified. The findings are consistent with moderate stenosis. There is mild to moderate regurgitation. Tricuspid valve: The leaflets are normal thickness. There is trace regurgitation. Pulmonic valve: The leaflets are normal thickness. There is no evidence of stenosis. There is trivial regurgitation. Aorta: Ascending aorta: The ascending aorta is mildly dilated. Aortic arch: The aortic arch is poorly visualized. The aortic root is not dilated. Pericardium: A trivial pericardial effusion is identified. Pulmonary arteries: Not well visualized. Systolic pressure can not be accurately estimated. Systemic veins: Inferior vena cava: The vessel is normal in size. The respirophasic diameter changes are in the normal range (>= 50%). Measurements Left ventricle Value Ref Right atrium continued Value Ref BORA, LAX (L) 2.7 cm 3.8 - 5.2 SI dim, ES, A4C (H) 5.9 cm 3.4 - 5.3 ESD, LAX (L) 1.5 cm 2.2 - 3.5 Estimated RAP 3 mm Hg --------- FS, LAX 44 % 27 - 45 PW, ED, LAX (H) 1.7 cm 0.6 - 0.9 Aortic valve Value Ref FS 44 % 27 - 45 Harris diam, ED 2.2 cm --------- PW, ED (H) 1.7 cm 0.6 - 0.9 Peak v, S 2.78 m/sec --------- E', lat harris, TDI (L) 5.3 cm/sec >=10.0 VTI, S 43.7 cm -- ------- E/e', lat harris, 17 Mean grad, S 19.0 mm Hg ----- ---- TDI Peak grad, S 33.0 mm Hg --------- E', med harris, TDI (L) 4.5 cm/sec >=7.0 LVOT/AV, VTI ratio 0.34 -- ------- E/e', med harris, 19 CRISTA, VTI 1.08 cm^2 ----- ---- TDI CRISTA, Vmax 0.88 cm^2 --------- E', avg, TDI 4.9 cm/sec AR peak v 3.79 m/sec ----- ---- E/e', avg, TDI (H) 18 <=14 AR PHT 414 ms -- ------- AR peak grad 57 mm Hg --------- LVOT Value Ref Diam, S 2.00 cm Mitral valve Value Ref Area 3.1 cm^2 Peak E 0.88 m/sec --------- Peak jose r, S 0.78 m/sec Peak A 0 m/sec --------- VTI, S 15.0 cm Decel time 253 ms --------- Mean grad, S 1 mm Hg PHT 117 ms --------- SV 52 ml Mean grad, D 2.0 mm Hg --------- SV/bsa 32 ml/m^2 Peak grad, D 7.0 mm Hg --------- Peak E/A ratio 437.5 --------- Ventricular septum Value Ref MVA, PHT 1.9 cm^2 --------- IVS, ED (H) 1.9 cm 0.6 - 0.9 Pulmonic valve Value Ref Right ventricle Value Ref Peak v, S 1.22 m/sec --------- BORA, LAX 2.7 cm Peak grad, S 6.0 mm Hg --------- BORA minor ax, 2.8 cm 1.9 - 3.5 A4C mid Aortic root Value Ref Root diam 3.4 cm <3.9 Left atrium Value Ref AP dim, ES (H) 4.00 cm 2.70 - Ascending aorta Value Ref 3.80 AAo AP diam, S 3.6 cm --------- ML dim, A4C 5.4 cm SI dim, A4C 4.4 cm Inferior vena cava Value Ref Vol/bsa, ES, 1-p (H) 51 ml/m^2 11 - 40 Diam 2.0 cm --------- A4C Vol/bsa, ES, A/L (H) 71 ml/m^2 16 - 34 Right atrium Value Ref SI dim, ES (H) 5.9 cm 3.4 - 5.3 ML dim, ES, A4C 4.1 cm 2.6 - 4.4 Legend: (L) and (H) carrie values outside specified reference range. Prepared and electronically signed by Bryan Abdalla MD 04/16/2019 11:18
--- NOTE | 2019-04-16 11:36 | PN ---
Subjective Date of Service: 04/16/19 Interval History: Patient's only complaint is Burning at her IV site from infusing potassium. Patient denies F/C, N/V, abdominal pain, diarrhea, CP, SOB, palpitations, or other pain. Patient has had no diarrhea or GI bleed. Patient denies Epistaxis. Family History: Unchanged from Admission Social History: Unchanged from Admission Past Medical History: Unchanged from Admission Objective Active Medications: Acetaminophen (Tylenol Tab*) 650 mg PO Q6H PRN PRN Reason: FEVER/PAIN Atorvastatin Calcium (Lipitor*) 40 mg PO 1700 [facility] Last Admin: 04/15/19 16:09 Dose: 40 mg Cholecalciferol (Vitamin D Tab*) 1,000 units PO DAILY [facility] Last Admin: 04/16/19 08:51 Dose: 1,000 units Digoxin (Lanoxin Tab*) 0.125 mg PO 1700 [facility] Last Admin: 04/15/19 16:09 Dose: 0.125 mg Potassium Chloride (Potassium Chloride 20 Meq/100 Ml Ivpremix*) 20 meq in 100 mls @ 50 mls/hr IV Q2H [facility] Stop: 04/16/19 13:59 Last Admin: 04/16/19 08:51 Dose: 50 mls/hr Metoprolol Succinate (Toprol Xl Tab*) 50 mg PO 1200 [facility] Last Admin: 04/15/19 13:41 Dose: 50 mg Metoprolol Succinate (Toprol Xl Tab*) 100 mg PO BID [facility] Last Admin: 04/16/19 08:51 Dose: 100 mg Ondansetron HCl (Zofran Inj*) 4 mg IV Q6H PRN PRN Reason: NAUSEA Torsemide (Torsemide) 20 mg PO DAILY [facility] Last Admin: 04/16/19 08:51 Dose: 20 mg Vital Signs - 8 hr 04/16/19 04/16/19 04/16/19 03:48 07:37 07:45 Temperature 97.5 F 97.8 F Pulse Rate 76 70 Respiratory 18 16 16 Rate Blood Pressure 120/40 145/59 (mmHg) O2 Sat by Pulse 93 94 Oximetry Oxygen Devices in Use Now: None Appearance: Patient is a 78yo female who appears stated age and is sitting in the bed in [facility]. Eyes: No Scleral Icterus, PERRLA Ears/Nose/Mouth/Throat: NL Teeth, Lips, Gums, Clear Oropharnyx, Mucous Membranes Moist Neck: NL Appearance and Movements; NL JVP, Trachea Midline Respiratory: Symmetrical Chest Expansion and Respiratory Effort, Clear to Auscultation Cardiovascular: NL Sounds; No Murmurs; No JVD, RRR, - - Trace B/L LE edema. Abdominal: NL Sounds; No Tenderness; No Distention, No Hepatosplenomegaly Lymphatic: No Cervical Adenopathy Extremities: No Clubbing, Cyanosis Skin: No Nodules or Sclerosis, - - Nevi and telangectasias. Neurological: Alert and Oriented x 3, NL Sensation, NL Muscle Strength and Tone , - - CN II-XII intact. Result Diagrams: 04/16/19 05:16 04/16/19 05:16 Assess/Plan/Problems-Billing Assessment: Patient is a 78yo female with a PMH for HTN, Afib, HFpEF, and HHT syndrome who presents with afib with RVR and HFpEF exacerbation with elevated troponin. Patient is feeling better today and is pending ischemic workup on Wednesday. - Patient Problems (1) Afib Current Visit: No Status: Acute Code(s): I48.91 - UNSPECIFIED ATRIAL FIBRILLATION SNOMED Code(s): 89576090 Comment: - Rate control with Metoprolol and Digoxin. - Digoxin was recently stopped and was missing doses of Metoprolol. Loaded with Digoxin again overnight - Possibly rebound tachycardia precipitating symptoms - RVR likely exacerbates HFpEF - Optimize electrolytes with potassium and magnesium supplementation, particularly with digoxin loading. 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 May need PRN Lasix/Torsemid outpatient for fluid overload. 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 (5) DVT prophylaxis Current Visit: No Status: Acute Code(s): DGD2957 - SNOMED Code(s): 440687769 Comment: - SCDs only, anticoagulation contraindicated. Status and Disposition: Inpatient for ischemia evaluation and CHF exacerbation. Hopeful D/C tomorrow pending negative Stress Test.
[2019-04-16] MEDS: Metoprolol Succinate XL TAB* 50 MG PO SCH (12:37)
[2019-04-16] MEDS: Atorvastatin* 40 MG TAB PO SCH (16:58)
[2019-04-16] MEDS: Digoxin TAB* 0.125 MG PO SCH (16:58)
[2019-04-17 07:00] LABS: Hematocrit 38 % (35-47); Hemoglobin 12.3 g/dL (12.0-16.0); Mean Corpuscular HGB Conc 33 g/dL (31-36); Mean Corpuscular Hemoglobin 27 pg (27-31); Mean Corpuscular Volume 81 fL (80-97); Mean Platelet Volume 8.5 fL (7.4-10.4); Platelet Count 214 10^3/uL (150-450); Red Blood Count 4.66 10^6 /uL (3.70-4.87); Red Cell Distribution Width 17 % (10-15); White Blood Count 8.2 10^3/uL (3.5-10.8)
[2019-04-17 07:03] LABS: ABS Basophils 0.1 10^3/ul (0-0.2); ABS Eosinophils 0.1 10^3/ul (0-0.6); ABS Lymphocytes 0.8 10^3/ul (1.0-4.8); ABS Monocytes 1.7 10^3/ul (0-0.8); ABS Neutrophils 5.5 10^3/ul (1.5-7.7); Eosinophil % 0.7 %; Lymphocyte % 10.3 %; Nucleated Red Blood Cells % 0.1
[2019-04-17 07:33] LABS: Calcium 9.8 mg/dL (8.6-10.3); Magnesium 1.9 mg/dL (1.9-2.7); Potassium 3.7 mmol/L (3.5-5.0)
[2019-04-17 07:39] LABS: BUN/Creatinine Ratio 32.1 (8-20); EGFR African American 135.3 (>60); EGFR Non-African American 111.9 (>60)
[2019-04-17] MEDS: Torsemide TAB 10 MG PO SCH (09:18)
[2019-04-17] MEDS: Metoprolol Succinate XL TAB* 100 MG PO SCH (09:18)
[2019-04-17] MEDS: Cholecalciferol TAB* 1000 UNITS PO SCH (09:18)
[2019-04-17] MEDS ORDERED: Regadenoson* 0.4 MG/5 ML SYRINGE ONE (14:14)
[2019-04-17] MEDS: Metoprolol Succinate XL TAB* 50 MG PO SCH (14:56)
[2019-04-17 16:05] VITALS: BP 126/39
--- NOTE | 2019-04-17 16:56 | PN ---
Subjective Date of Service: 04/17/19 Interval History: No overnight events. Patient denies chest pain, SOB, light headedness. She states she feels well and looking forward to stress test and going home. Given that her TTE was unchanged from prior and stress test was low risk, cardiology recommended to continue current medications (including metoprolol, dilt, and torsemide) and to f/u with her PCP. Family History: Unchanged from Admission Social History: Unchanged from Admission Past Medical History: Unchanged from Admission Objective Active Medications: Acetaminophen (Tylenol Tab*) 650 mg PO Q6H PRN PRN Reason: FEVER/PAIN Atorvastatin Calcium (Lipitor*) 40 mg PO 1700 [facility] Last Admin: 04/16/19 16:58 Dose: 40 mg Cholecalciferol (Vitamin D Tab*) 1,000 units PO DAILY [facility] Last Admin: 04/17/19 09:18 Dose: 1,000 units Digoxin (Lanoxin Tab*) 0.125 mg PO 1700 [facility] Last Admin: 04/16/19 16:58 Dose: 0.125 mg Metoprolol Succinate (Toprol Xl Tab*) 50 mg PO 1200 [facility] Last Admin: 04/17/19 14:56 Dose: Not Given Metoprolol Succinate (Toprol Xl Tab*) 100 mg PO BID [facility] Last Admin: 04/17/19 09:18 Dose: 100 mg Ondansetron HCl (Zofran Inj*) 4 mg IV Q6H PRN PRN Reason: NAUSEA Torsemide (Torsemide) 20 mg PO DAILY [facility] Last Admin: 04/17/19 09:18 Dose: 20 mg Vital Signs - 8 hr 04/17/19 04/17/19 12:41 15:39 Temperature 97.4 F 97.4 F Pulse Rate 79 86 Respiratory 20 18 Rate Blood Pressure 126/49 126/39 (mmHg) O2 Sat by Pulse 97 96 Oximetry Oxygen Devices in Use Now: None Appearance: chronically ill apearing, frail, NAD; alert and interactive; answers questions appropriately Ears/Nose/Mouth/Throat: Clear Oropharnyx, Mucous Membranes Moist Neck: NL Appearance and Movements; NL JVP Respiratory: Clear to Auscultation Cardiovascular: NL Sounds; No Murmurs; No JVD, RRR, - - soft systolic murmur Abdominal: NL Sounds; No Tenderness; No Distention Extremities: No Edema Skin: - - seborrheic keratosis Neurological: Alert and Oriented x 3 Result Diagrams: 04/17/19 06:32 04/17/19 06:32 Assess/Plan/Problems-Billing Assessment: 78W with HTN, Afib, HFpEF, and HHT syndrome who presents with afib with RVR and HFpEF exacerbation with elevated troponin. - Patient Problems (1) Afib Comment: - Rate control with Metoprolol and Digoxin. 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 - cannot be on AC given HHT (2) CHF (congestive heart failure) Comment: Suspect CHF related to afib. Echo unchanged. - Continue digoxin, metoprolol - Cont PO torsemide; discussed monitoring weight as outpatient and calling provider if increasing Status and Disposition: Discharge today.
[2019-04-17] MEDS: Digoxin TAB* 0.125 MG PO SCH (17:18)
[2019-04-17] MEDS: Atorvastatin* 40 MG TAB PO SCH (17:18)
--- NOTE | 2019-04-17 23:54 | DS ---
CC: Dr. Lemon; Dr. Gracy Mc * DISCHARGE SUMMARY: DATE OF ADMISSION: 04/14/19 DATE OF DISCHARGE: 04/17/19 PRIMARY CARE PROVIDER: Dr. Lemon. MY ATTENDING WHILE IN THE HOSPITAL: Dr. Gisela Mcmahon.* (DICTATED BY TRISHA BAIN) OUTPATIENT SURFBOARD DESIGNER: Dr. Gracy Mc PRIMARY DISCHARGE DIAGNOSES: 1. Heart failure with preserved ejection fraction, exacerbation. 2. Atrial fibrillation with rapid ventricular response. 3. Troponinemia due to demand ischemia. SECONDARY DISCHARGE DIAGNOSES: 1. Hereditary hemorrhagic telangiectasia syndrome. 2. History of recurrent epistaxis, status post multiple procedures. 3. Hypertension. 4. Aortic stenosis. 5. Pulmonary hypertension related to heart failure with preserved ejection fraction. 6. Liver mass, being evaluated for surgery. 7. Hyperlipidemia. STUDIES DONE WHILE IN THE HOSPITAL: Electrocardiogram from 04/14/19 shows atrial fibrillation rate of 123, QTc of 490, early repolarization in V4 and V5. No ST segmental elevation or depression. Left axis deviation. No hypertrophy or enlargement consistent with previous exams. Repeat EKG shows rate 96, QTc 372, no other significant changes. Chest thorax CTA from 04/14/19 shows large right pleural effusion, small left pleural effusion, cardiomegaly, no evidence of pulmonary embolism. Transthoracic echocardiogram read as ejection fraction 55% to 60%. Mild concentric left ventricular hypertrophy, left atrium severely dilated, right atrium moderately dilated, mitral valve consistent with mild stenosis. Aortic valve consistent with moderate stenosis, [id number] regurgitation, descending artery mildly dilated. Chest x-ray from 04/16/19 read as cardiomegaly, mild to moderate, right pleural effusion is stable, basilar atelectasis versus consolidation. Nuclear medicine scan from 04/17/19 read as no fixed or reversible perfusion defects, normal EF, low risk. MEDICATIONS AT DISCHARGE: 1. Metoprolol succinate 100 mg p.o. b.i.d. 2. Metoprolol succinate 50 mg p.o. at noon. 3. Lisinopril 2.5 mg p.o. daily. 4. Ensure 115 g p.o. daily. 5. Vitamin D 1 tab p.o. daily. 6. Digoxin 0.25 mg p.o. nightly. 7. Torsemide 20 mg p.o. daily. New Medications on Discharge: Digoxin and torsemide. Medications Discontinued on Discharge: None. HOSPITAL COURSE: This is a brief summary of the patient's presentation. For more details, please see history and physical from TRISHA Bain on . In brief, the patient is a 78-year-old female with past medical history significant for above, presented to the emergency department with palpitations and shortness of breath for 24 hours. Since her admission the patient also complained of chest pressure of varying degrees. Her story was inconsistent in this matter. The patient's digoxin through her dyed yarn operator had recently been stopped the patient had an echocardiogram, which showed preserved ejection fraction. The patient was initially found to be markedly hypertensive with an elevated troponin, severely elevated BNP, as well as borderline alkaline phosphatase with studies as above consistent with fluid overload and heart failure exacerbation. The patient was admitted to the hospital. The patient was reloaded with digoxin. The patient had a missing dose of metoprolol and this was reinforced with her to take consistently. The patient's heart rate will be controlled well on this regimen. The patient was seen outpatient by Dr. Bryan Abdalla. The patient initially had a troponin of 1.1 giving concern for chest pain in the setting of elevated troponin. Dr. Abdalla recommended repeat echocardiogram and nuclear medicine scan. The patient improved with diuresis and digoxin loading and was able to be weaned off of oxygen which was initially needed and her exercise tolerance increased greatly with no recurrence in chest pain or palpitations. The patient had an echocardiogram read as above consistent with previous exam as well as a nuclear medicine scan showing no fixed or reversal perfusion defects. Of note, the patient has HHT as above and refuses all anticoagulation and antiplatelet agents. The patient was started on no heparin drip, no aspirin while in the hospital. The patient was stable enough for discharge on 04/17/19. DISCHARGE PLAN: The patient will be discharged to home. The patient should follow up closely with her primary care provider. The patient will be continued on torsemide at discharge. The patient should monitor her weight at least every other day and call her primary care provider or her dyed yarn operator for weight gain greater than 3 pounds. The patient should make sure to take her metoprolol as scheduled. The patient should follow up with her dyed yarn operator for routine cardiac care. The patient should follow up when available with outpatient endoscopic ultrasounds through [facility], which was previously scheduled to evaluate her liver mass. The patient should have a repeat BNP and digoxin level in 1 week. The patient should return to the hospital for passing out, severe chest pain, palpitations, or other alarming symptoms. The patient should discuss ongoing torsemide dosing with her primary care provider or dyed yarn operator at her followup appointments. TIME SPENT: Approximately 60 minutes was spent on the discharge of this patient , 30 of which were spent [id number] with the patient, obtaining my history and physical, and discussing my treatment plan. TRISHA BAIN [id number]/[facility] #: [id number]
[2019-04-18 15:06] LABS: Albumin 2.9 g/dL (3.4-4.7); Albumin/Globulin Ratio 0.72; Total Protein(PEP) 6.9 g/dL (6.3 - 7.9)
== END 2019-04-17 17:00 | disposition home health service (06) | DRG 309 ==
LOC: ED 07:55 → MEDTELE 10:55 → OBSVTOIN 04-16 11:40
PROVIDERS: ADMIT Internal Medicine; ATTEND Internal Medicine
DX: I48.2 Chronic atrial fibrillation (principal); I24.8 Other forms of acute ischemic heart disease; I11.0 Hypertensive heart disease with heart failure; I50.9 Heart failure, unspecified; I78.0 Hereditary hemorrhagic telangiectasia; I27.29 Other secondary pulmonary hypertension; R16.0 Hepatomegaly, not elsewhere classified; E78.5 Hyperlipidemia, unspecified; I49.3 Ventricular premature depolarization; I08.0 Rheumatic disorders of both mitral and aortic valves; R74.8 Abnormal levels of other serum enzymes; I25.10 Atherosclerotic heart disease of native coronary artery without angina pectoris; Z79.899 Other long term (current) drug therapy; Z88.8 Allergy status to other drugs, medicaments and biological substances; Z80.0 Family history of malignant neoplasm of digestive organs; Z80.1 Family history of malignant neoplasm of trachea, bronchus and lung; Z82.49 Family history of ischemic heart disease and other diseases of the circulatory system
CPT/HCPCS: 36415; 71046; 71275; 78452; 80048; 80053; 80061; 80162; 83036; 83735; 83880; 84155; 84165; 84443; 84484; 85025; 85610; 93005; 93017; 93306; 99285; A9270-GY; A9502; G0378; J1160; J1940; J2785; J3475; J3480; Q9967

== ENCOUNTER 2019-05-04 20:01 | Emergency (ER) | payer MEDICARE, BC ==
--- NOTE | 2019-05-04 20:17 | ED ---
Adult Trauma - HPI Summary HPI Summary: A 78 y/o female brought in by [facility] presents to [facility] with a chief complaint of a mechanical fall today. She says that she tripped in her bathroom and hit her head on the bath tub. She reports some neck pain. When asked how she fell she says "I don't know". Per , the support used to sit on the toilet had fallen off and the patient did not lose consciousness. - History of Current Complaint Chief Complaint: EDFall Stated Complaint: "FALL PER EMS" Time Seen by Provider: 05/04/19 20:08 Hx Obtained From: Patient Mechanism of Injury: Fall Loss of Consciousness: no loss of consciousness Onset/Duration: Started Minutes Ago, Still Present Onset of Pain: Immediate, Post Accident, Prior to Arrival Onset Severity: Moderate Current Severity: Moderate Pain Intensity: 4 Pain Scale Used: 0-10 Numeric Location: Other - neck Aggravating Factor(s): Nothing Alleviating Factor(s): Nothing Associated Signs & Symptoms: Positive: Other: - positive: neck pain. Negative: Fever, Loss of Consciousness - Additional Pertinent History Primary Care Physician: PAULINO - Allergy/Home Medications Allergies/Adverse Reactions: Allergies Allergy/AdvReac Type Severity Reaction Status Date / Time chlorpheniramine Allergy Intermediate See Comment Verified 09/15/18 20:52 Antihistamines - Alkylamine Allergy See Comment Verified 04/14/19 11:02 Antihistamines - Ethanolamine Allergy See Comment Verified 04/14/19 11:02 Antihistamines - Allergy See Comment Verified 04/14/19 11:02 Ethylenediamine Antihistamines - Piperazine Allergy See Comment Verified 04/14/19 11:02 Antihistamines - Piperidine Allergy See Comment Verified 04/14/19 11:02 diphenhydramine Allergy See Comment Verified 09/15/18 20:52 enoxaparin [From Lovenox] Allergy Bleeding Verified 09/15/18 20:52 heparin Allergy Bleeding Verified 09/15/18 20:52 loratadine Allergy See Comment Verified 09/15/18 20:52 rivaroxaban [From Xarelto] Allergy Bleeding Verified 09/15/18 20:52 warfarin Allergy Bleeding Verified 09/15/18 20:52 pepper (genus Capsicum) AdvReac Sneezing Verified 04/14/19 11:02 PMH/Surg Hx/FS Hx/Imm Hx Endocrine/Hematology History: Reports: Other Endocrine/Hematological Disorders - epistaxis (HHT), Osler Telangiectasia Denies: Hx Anticoagulant Therapy, Hx Diabetes, Hx Sickle Cell Disease Cardiovascular History: Reports: Hx Atrial Fibrillation, Hx Congestive Heart Failure, Hx Coronary Artery Disease, Hx Hypercholesterolemia, Hx Hypertension - ON MEDS PT STATES CONTROLLED, Other Cardiovascular Problems/Disorders - Mitral Valve disorder Respiratory History: Reports: Other Respiratory Problems/Disorders - HX OF EPISTAXIS, HAS ONE NOW, SOUND STUFFY DUE TO PACKING IN NOSE PRESENTLY Denies: Hx Asthma, Hx Chronic Obstructive Pulmonary Disease (COPD) GI History: Denies: Other GI Disorders History: Denies: Other Problems/Disorders Musculoskeletal History: Reports: Hx Arthritis, Other Musculoskeletal History - left Hip Fx with repair 09/25/16 Denies: Hx Osteoporosis Sensory History: Reports: Hx Cataracts - bilat surgery, Hx Contacts or Glasses - reading small print, Hx Hearing Aid - bilateral left worse Opthamlomology History: Reports: Hx Cataracts - bilat surgery, Hx Contacts or Glasses - reading small print Neurological History: Denies: Hx Headaches, Hx Seizures, Hx Transient Ischemic Attacks (TIA), Other Neuro Impairments/Disorders Psychiatric History: Denies: Hx Anxiety, Hx Depression - Cancer History Hx Chemotherapy: No - Surgical History Surgery Procedure, Year, and Place: SEVERAL NOSE SURGERIES FOR EPISTAXIS, [facility] + . PARTIAL HYSTERECTOMY IN EARLY 'S, [place]. left Hip Fx with repair . bilat cataract surgery with IOL Hx Anesthesia Reactions: No Infectious Disease History: No Infectious Disease History: Denies: Traveled Outside the [place] in Last 30 Days - Family History Known Family History: Negative: Hypertension, Diabetes - Social History Alcohol Use: Daily Alcohol Amount: 2 GLASS WINE/NIGHT Hx Substance Use: No Substance Use Type: Reports: None Hx Tobacco Use: No Smoking Status (MU): Never Smoked Tobacco Review of Systems Negative: Fever Positive: Other - positive: mechanical fall, neck pain Neurological: Other - negative: LOC All Other Systems Reviewed And Are Negative: Yes Physical Exam - Summary Physical Exam Summary: Appearance: elderly female laying in stretcher in no acute distress, Skin: Warm, dry, no obvious rash Eyes: sclera anicteric, no conjunctival pallor ENT: nose has dried blood but no active bleeding, no deformity, dry blood in mouth but no signs of oral trauma Neck: right sided frontal hematoma with no laceration on neck, upper midline c- spine tenderness. Respiratory: Clear to auscultation, no signs of respiratory distress Cardiovascular: Normal S1, S2. No murmurs. Normal distal pulses in tibial and radial bilaterally. Abdomen: Soft, nontender, normal active bowel sounds present Musculoskeletal: Normal, Strength/ROM Intact Neurological: A&Ox3, awake and alert, mentation is normal, speech is fluent and appropriate Psychiatric: affect is normal, does not appear anxious or depressed Triage Information Reviewed: Yes Vital Signs On Initial Exam: Initial Vitals Temp Pulse Resp BP Pulse Ox 98.0 F 74 22 151/65 96 05/04/19 20:04 05/04/19 20:04 05/04/19 20:04 05/04/19 20:04 05/04/19 20:04 Vital Signs Reviewed: Yes - Mascot Coma Scale Best Eye Response: 4 - Spontaneous Best Motor Response: 6 - Obeys Commands Best Verbal Response: 5 - Oriented Coma Scale Total: 15 Diagnostics - Vital Signs Vital Signs Temp Pulse Resp BP Pulse Ox 05/04/19 20:04 98.0 F 74 22 151/65 96 - Laboratory Result Diagrams: 05/04/19 20:25 05/04/19 20:25 Lab Statement: Any lab studies that have been ordered have been reviewed, and results considered in the medical decision making process. - CT Cervical Spine CT Interpretation Completed By: Radiologist Summary of CT Findings: No acute posttraumatic findings. ED physician has reviewed this imaging report. Brain CT Interpretation Completed By: Radiologist Summary of CT Findings: No acute intracranial abnormality. ED physician has reviewed this imaging report. - EKG 20:16 Cardiac Rate: Other Rate - Atrial fibrillation at 76bpm EKG Rhythm: Atrial Fibrillation Summary of EKG Findings: EKG at 20:16 showed Atrial fibrillation at 76 bpm with controlled response. P waves, QRS complex, and T waves are within normal limits , T waves and intervals are normal, no ischemic changes. Adult Trauma Course/Dx - Course Course Of Treatment: A 78 y/o female brought in by [facility] presents to [facility] with a chief complaint of a mechanical fall today. The physical exam revealed that the patient is an elderly female laying in stretcher in no acute distress, GCS 15, right sided frontal hematoma with no laceration on neck,. nose has dried blood but no active bleeding, no deformity, dry blood in mouth but no signs of oral trauma, upper midline c-spine tenderness. EKG at 20:16 showed Atrial fibrillation at 76 bpm with controlled response. P waves, QRS complex, and T waves are within normal limits, T waves and intervals are normal , no ischemic changes. Blood work, chemistries, urines and toxicology obtained and are WNL. Cervical spine CT impression: No acute posttraumatic findings. Brain CT impression: No acute intracranial abnormality. The patient will be discharged and follow up with her PCP. The patient is agreeable with this plan. - Diagnoses Provider Diagnoses: Fall, Hematoma of frontal scalp, Cervical strain Discharge - Sign-Out/Discharge Documenting (check all that apply): Patient Departure - DC Patient Received Moderate/Deep Sedation with Procedure: No - Discharge Plan Condition: Good Disposition: HOME Patient Education Materials: Cervical Strain (ED), Fall Prevention for Older Adults (ED), Contusion in Adults (ED), Hematoma (ED) Referrals: Velvet Lemon MD [Primary Care Provider] - 3 Days (if not improving) Additional Instructions: I expect you to possibly have more pain tomorrow, so rest and take tylenol for pain. If you have very severe pain that is disabling, come back so we can check you again. - Billing Disposition and Condition Condition: GOOD Disposition: Home - Attestation Statements Document Initiated by Belem: Yes Documenting Scribe: Zheng Lauren Provider For Whom Belem is Documenting (Include Credential): Albaro Loaiza MD Scribe Attestation: I, Zheng Lauren, scribed for Albaro Loaiza MD on 05/05/19 at 0332. Scribe Documentation Reviewed: Yes Provider Attestation: The documentation as recorded by the Zheng golden accurately reflects the service I personally performed and the decisions made by me, Albaro Loaiza MD Status of Scribe Document: Viewed
[2019-05-04 20:32] LABS: ABS Basophils 0.1 10^3/ul (0-0.2); ABS Eosinophils 0.1 10^3/ul (0-0.6); ABS Lymphocytes 0.9 10^3/ul (1.0-4.8); ABS Monocytes 0.9 10^3/ul (0-0.8); ABS Neutrophils 5.3 10^3/ul (1.5-7.7); Eosinophil % 0.9 %; Hematocrit 37 % (35-47); Hemoglobin 11.9 g/dL (12.0-16.0); Lymphocyte % 12.6 %; Mean Corpuscular HGB Conc 33 g/dL (31-36); Mean Corpuscular Hemoglobin 26 pg (27-31); Mean Corpuscular Volume 81 fL (80-97); Mean Platelet Volume 8.5 fL (7.4-10.4); Nucleated Red Blood Cells % 0.2; Platelet Count 201 10^3/uL (150-450); Red Blood Count 4.53 10^6 /uL (3.70-4.87); Red Cell Distribution Width 18 % (10-15); White Blood Count 7.2 10^3/uL (3.5-10.8)
[2019-05-04 20:49] LABS: Albumin 3.1 g/dL (3.2-5.2); Albumin/Globulin Ratio 0.8 (1-3); Calcium 9.6 mg/dL (8.6-10.3); EGFR African American 144.8 (>60); EGFR Non-African American 119.6 (>60); Globulin 3.9 g/dL (2-4); Magnesium 1.9 mg/dL (1.9-2.7); Total Bilirubin 0.8 mg/dL (0.2-1.0)
[2019-05-04 20:51] LABS: Troponin I 0.02 ng/mL (<0.04)
[2019-05-04 21:57] LABS: Urine Appearance Clear; Urine Bacteria Absent (Absent); Urine Bilirubin Negative (Negative); Urine Blood 1+ (Negative); Urine Color Yellow; Urine Glucose Negative (Negative); Urine Ketones Negative (Negative); Urine Nitrite Negative (Negative); Urine Protein Negative (Negative); Urine Red Blood Cell Trace(0-2/hpf) (Absent); Urine Specific Gravity 1.005 (1.010-1.030); Urine Urobilinogen Negative (Negative); Urine White Blood Cell Trace(0-5/hpf) (Absent)
[2019-05-04 21:59] LABS: Digoxin 0.9 ng/ml (0.8-2.0)
[2019-05-05 00:05] VITALS: BP 158/79
== END 2019-05-05 00:02 | disposition home or self-care (01) ==
LOC: ED 20:01
DX: S00.03XA Contusion of scalp, initial encounter (principal); S16.1XXA Strain of muscle, fascia and tendon at neck level, initial encounter; M54.2 Cervicalgia; W19.XXXA Unspecified fall, initial encounter; Y92.9 Unspecified place or not applicable; I25.10 Atherosclerotic heart disease of native coronary artery without angina pectoris; I50.9 Heart failure, unspecified
CPT/HCPCS: 36415; 70450; 72125; 80053; 80162; 81003; 81015; 83605; 83735; 84484; 85025; 87086; 93005; 99283

== ENCOUNTER 2019-05-06 10:40 | Inpatient (IN) | payer MEDICARE, BC ==
--- NOTE | 2019-05-06 11:30 | ED ---
Shortness of Breath - HPI Summary HPI Summary: A 78 y/o female presents to [facility] with a chief complaint of SOB since yesterday. Her SOB has reportedly worsened today and the patient normally has a small amount of SOB at baseline per family. She denies CP, fevers, or vomiting, but reports some intermittent coughs, nausea and diarrhea. At triage she rated her pain as a 5/10 in severity. The patient was recently in the ED two days ago for a fall and had a negative C-spine CT. The patient has a Hx of A-fib but does not take blood thinners because of her Hx of HHT where lesions in her nose bleed periodically. - History of Current Complaint Chief Complaint: EDShortnessOfBreath Time Seen by Provider: 05/06/19 11:21 Hx Obtained From: Patient Onset/Duration: Lasting Days, Still Present Timing: Constant Current Severity: Moderate Dyspnea At: Rest Aggravating Factors: Nothing Alleviating Factors: Nothing Associated Signs & Symptoms: Cough (Nonproductive) - Allergy/Home Medications Allergies/Adverse Reactions: Allergies Allergy/AdvReac Type Severity Reaction Status Date / Time chlorpheniramine Allergy Intermediate See Comment Verified 05/06/19 10:48 Antihistamines - Alkylamine Allergy See Comment Verified 05/06/19 10:48 Antihistamines - Ethanolamine Allergy See Comment Verified 05/06/19 10:48 Antihistamines - Allergy See Comment Verified 05/06/19 10:48 Ethylenediamine Antihistamines - Piperazine Allergy See Comment Verified 05/06/19 10:48 Antihistamines - Piperidine Allergy See Comment Verified 05/06/19 10:48 diphenhydramine Allergy See Comment Verified 05/06/19 10:48 enoxaparin [From Lovenox] Allergy Bleeding Verified 05/06/19 10:48 heparin Allergy Bleeding Verified 05/06/19 10:48 loratadine Allergy See Comment Verified 05/06/19 10:48 rivaroxaban [From Xarelto] Allergy Bleeding Verified 05/06/19 10:48 warfarin Allergy Bleeding Verified 05/06/19 10:48 pepper (genus Capsicum) AdvReac Sneezing Verified 05/06/19 10:48 Home Medications: Home Medications Alendronate Sodium 70 mg PO WEEKLY 05/06/19 [History Confirmed 05/06/19] PMH/Surg Hx/FS Hx/Imm Hx Endocrine/Hematology History: Reports: Other Endocrine/Hematological Disorders - epistaxis (HHT), Osler Telangiectasia Denies: Hx Anticoagulant Therapy, Hx Diabetes, Hx Sickle Cell Disease Cardiovascular History: Reports: Hx Atrial Fibrillation, Hx Congestive Heart Failure, Hx Coronary Artery Disease, Hx Hypercholesterolemia, Hx Hypertension - ON MEDS PT STATES CONTROLLED, Other Cardiovascular Problems/Disorders - Mitral Valve disorder Respiratory History: Reports: Other Respiratory Problems/Disorders - HX OF EPISTAXIS, HAS ONE NOW, SOUND STUFFY DUE TO PACKING IN NOSE PRESENTLY Denies: Hx Asthma, Hx Chronic Obstructive Pulmonary Disease (COPD) GI History: Denies: Other GI Disorders History: Denies: Other Problems/Disorders Musculoskeletal History: Reports: Hx Arthritis, Other Musculoskeletal History - left Hip Fx with repair 09/25/16 Denies: Hx Osteoporosis Sensory History: Reports: Hx Cataracts - bilat surgery, Hx Contacts or Glasses - reading small print, Hx Hearing Aid - bilateral left worse Opthamlomology History: Reports: Hx Cataracts - bilat surgery, Hx Contacts or Glasses - reading small print Neurological History: Denies: Hx Headaches, Hx Seizures, Hx Transient Ischemic Attacks (TIA), Other Neuro Impairments/Disorders Psychiatric History: Denies: Hx Anxiety, Hx Depression - Cancer History Hx Chemotherapy: No - Surgical History Surgery Procedure, Year, and Place: SEVERAL NOSE SURGERIES FOR EPISTAXIS, [facility] + . PARTIAL HYSTERECTOMY IN [place], [place]. left Hip Fx with repair . bilat cataract surgery with IOL Hx Anesthesia Reactions: No Infectious Disease History: No Infectious Disease History: Denies: Traveled Outside the [place] in Last 30 Days - Family History Known Family History: Negative: Hypertension, Diabetes - Social History Alcohol Use: Daily Alcohol Amount: 2 GLASS WINE/NIGHT Hx Substance Use: No Substance Use Type: Reports: None Hx Tobacco Use: No Smoking Status (MU): Never Smoked Tobacco Review of Systems Negative: Fever Positive: Shortness Of Breath Positive: Diarrhea, Nausea. Negative: Vomiting All Other Systems Reviewed And Are Negative: Yes Physical Exam - Summary Physical Exam Summary: VITAL SIGNS: Reviewed. GENERAL: Patient is an elderly, weak FEMALE who is lying comfortable in the stretcher. Patient is not in any acute respiratory distress. She is able to speak in full sentences. HEAD AND FACE: No signs of trauma. Bruising right side of face, hematomas or skull depressions. No sinus tenderness. EYES: PERRLA, EOMI x 2, No injected conjunctiva, no nystagmus. EARS: Hearing grossly intact. Ear canals and tympanic membranes are within normal limits. MOUTH: Oropharynx within normal limits. NECK: Supple, trachea is midline, no adenopathy, no JVD, no carotid bruit, no c- spine tenderness, neck with full ROM. CHEST: Symmetric, no tenderness at palpation. LUNGS: Slightly decreased breath sounds. No wheezing or crackles. CVS: Irregular rate and rhythm, S1 and S2 present, no murmurs or gallops appreciated. ABDOMEN: Soft, non-tender. No signs of distention. No rebound, no guarding, and no masses palpated. Bowel sounds are normal. EXTREMITIES: FROM in all major joints, no edema, no cyanosis or clubbing. NEURO: Alert and oriented x 3. No acute neurological deficits. Speech is normal and follows commands. SKIN: Dry and warm. Triage Information Reviewed: Yes Vital Signs On Initial Exam: Initial Vitals Temp Pulse Resp BP Pulse Ox 98.3 F 86 18 170/60 94 05/06/19 10:40 05/06/19 10:40 05/06/19 10:40 05/06/19 10:40 05/06/19 10:40 Vital Signs Reviewed: Yes Diagnostics - Vital Signs Vital Signs Temp Pulse Resp BP Pulse Ox 05/06/19 10:40 98.3 F 86 18 170/60 94 - Laboratory Result Diagrams: 05/07/19 06:03 05/07/19 06:03 Lab Statement: Any lab studies that have been ordered have been reviewed, and results considered in the medical decision making process. - Radiology CXR Radiology Interpretation Completed By: Radiologist Summary of Radiographic Findings: PERSISTENT DENSITY OBSCURING THE RIGHT LUNG BASE, SLIGHTLY LARGER WHEN COMPARED TO THE. APRIL 16, 2019 CHEST X-RAY. PLEURAL EFFUSION WITH WITHOUT COMPRESSIVE ATELECTASIS IS THE. MOST LIKELY DIAGNOSIS. ED physician has reviewed this imaging report. - EKG 11:44 Cardiac Rate: Other Rate - Atrial fibrillation at 97 bpm EKG Rhythm: Atrial Fibrillation Summary of EKG Findings: EKG at 11:44 showed Atrial fibrillation at [address] elevations, similar to previous EKG done 05/04/19. Course/Dx - Course Assessment/Plan: A 78 y/o female presents to [facility] with a chief complaint of SOB since yesterday. Her SOB has reportedly worsened today and the patient normally has a small amount of SOB at baseline per family. She denies CP, fevers , or vomiting, but reports some intermittent coughs, nausea and diarrhea. At triage she rated her pain as a 5/10 in severity. The patient was recently in the ED two days ago for a fall and had a negative C-spine CT. The patient has a Hx of A-fib but does not take blood thinners because of her Hx of HHT where lesions in her nose bleed periodically. Blood test results without any significant abnormality except for WBCs of 2.5, hemoglobin 11.9, absolute neutrophils 10.1. Creatinine 0.48, glucose, calcium is 10.5, total bili 1.8, alkaline phosphatase 371, CRP of 26, BNP is 1300. Urinalysis negative for UTI. CXR IMPRESSION: PERSISTENT DENSITY OBSCURING THE RIGHT LUNG BASE, SLIGHTLY LARGER WHEN COMPARED TO THE APRIL 16, 2019 CHEST X-RAY. PLEURAL EFFUSION WITH WITHOUT COMPRESSIVE ATELECTASIS IS THE MOST LIKELY DIAGNOSIS. Since the patient has an increased levels account and she has an infiltrate in the right lower lung with the patient was admitted to treat her for pneumonia. The patient also was given Lasix for CHF exacerbation. I discuss my physical exam and test results with Dr. Oro from the hospitalist services and he agrees to admit patient to his services. Patient is hemodynamically stable alert and oriented x 3. - Diagnoses Provider Diagnoses: Pneumonia, CHF (congestive heart failure) - Physician Notifications Discussed Care of Patient With: Kayla Oro Time Discussed With Above Provider: 12:52 Instructed by Provider To: Admit As Inpatient Discharge - Sign-Out/Discharge Documenting (check all that apply): Patient Departure - admit Patient Received Moderate/Deep Sedation with Procedure: No - Discharge Plan Condition: Fair Disposition: ADMITTED TO [facility] - Billing Disposition and Condition Condition: FAIR Disposition: Admitted to [facility] - Attestation Statements Document Initiated by Scribe: Yes Documenting Scribe: Zheng Lauren Provider For Whom Scribe is Documenting (Include Credential): Rashad Patrick MD Scribe Attestation: IZheng, scribed for Rashad Patrick MD on 05/07/19 at 1223. Scribe Documentation Reviewed: Yes Provider Attestation: The documentation as recorded by the scribe, Zheng Lauren accurately reflects the service I personally performed and the decisions made by me, Rashad Patrick MD Status of Scribe Document: Viewed
[2019-05-06 12:26] LABS: Hematocrit 36 % (35-47); Hemoglobin 11.9 g/dL (12.0-16.0); Mean Corpuscular HGB Conc 33 g/dL (31-36); Mean Corpuscular Hemoglobin 26 pg (27-31); Mean Corpuscular Volume 80 fL (80-97); Mean Platelet Volume 8.9 fL (7.4-10.4); Platelet Count 207 10^3/uL (150-450); Red Blood Count 4.55 10^6 /uL (3.70-4.87); Red Cell Distribution Width 17 % (10-15); White Blood Count 12.5 10^3/uL (3.5-10.8)
[2019-05-06 12:37] LABS: ALT 19 U/L (7-52); AST 25 U/L (13-39); Albumin 3.4 g/dL (3.2-5.2); Albumin/Globulin Ratio 0.8 (1-3); Alkaline Phosphatase 171 U/L (34-104); Anion Gap 8 mmol/L (2-11); BUN/Creatinine Ratio 27.1 (8-20); Blood Urea Nitrogen 13 mg/dL (6-24); CO2 Carbon Dioxide 27 mmol/L (22-32); Calcium 10.5 mg/dL (8.6-10.3); Chloride 102 mmol/L (101-111); Creatine Kinase 35 U/L (10-223); EGFR African American 151.7 (>60); EGFR Non-African American 125.4 (>60); Globulin 4.1 g/dL (2-4); Glucose 112 mg/dL (70-100); Potassium 3.8 mmol/L (3.5-5.0); Sodium 137 mmol/L (135-145); Total Protein 7.5 g/dL (6.4-8.9)
[2019-05-06 12:38] LABS: C Reactive Protein 26.2 mg/L (<8.01)
[2019-05-06 12:41] LABS: Troponin I 0.03 ng/mL (<0.04)
[2019-05-06 12:43] LABS: CKMB ng/mL 1.5 ng/mL (0.6-6.3)
[2019-05-06] MEDS ORDERED: cefTRIAXone(*) 1 GM in NS 0.9% 50 ML* 50 ML IVPB ONE (12:43)
[2019-05-06] MEDS ORDERED: Furosemide IV* 10 MG/ML 2 ML VIAL (20 MG) IV ONE (12:43)
[2019-05-06 12:52] LABS: ABS Basophils 0.1 10^3/ul (0-0.2); ABS Lymphocytes 0.7 10^3/ul (1.0-4.8); ABS Monocytes 1.6 10^3/ul (0-0.8); ABS Neutrophils 10.1 10^3/ul (1.5-7.7); Lymphocyte % 5.2 %; Nucleated Red Blood Cells % 0.1
[2019-05-06 13:04] LABS: Alcohol < 10 mg/dL (<10)
[2019-05-06 13:33] LABS: Urine Appearance Clear; Urine Bacteria Absent (Absent); Urine Bilirubin Negative (Negative); Urine Blood 1+ (Negative); Urine Color Yellow; Urine Glucose Negative (Negative); Urine Ketones Negative (Negative); Urine Nitrite Negative (Negative); Urine Protein Negative (Negative); Urine Red Blood Cell 1+(3-5/hpf) (Absent); Urine Specific Gravity 1.009 (1.010-1.030); Urine Squamous Epithelial Cell Present (Absent); Urine Urobilinogen Negative (Negative); Urine White Blood Cell Trace(0-5/hpf) (Absent)
[2019-05-06] MEDS ORDERED: Ondansetron INJ* 2 MG/ML VIAL IV PRN (13:47)
[2019-05-06] MEDS ORDERED: Acetaminophen TAB* 325 MG PO PRN (13:47)
[2019-05-06] MEDS ORDERED: Piperacillin/Tazobac ADVAN(*) 3.375 GM in NS 0.9% 100 ML* 100 ML IVPB ONE (13:58)
[2019-05-06] MEDS ORDERED: Vancomycin per Pharmacy* NOTE FOLLOW UP SCH (14:00)
[2019-05-06] MEDS ORDERED: Zosyn per Pharmacy* NOTE FOLLOW UP SCH (14:00)
[2019-05-06] MEDS ORDERED: Vancomycin(*) 1,000 MG in NS 0.9% 250 ML* 250 ML IVPB ONE (14:04)
[2019-05-06 14:35] LABS: Digoxin 1.3 ng/ml (0.8-2.0)
[2019-05-06] MEDS ORDERED: NS 0.9% 500 ML* 500 ML IV SCH (15:00)
[2019-05-06] MEDS: Digoxin TAB* 0.125 MG PO SCH (17:27)
--- NOTE | 2019-05-06 17:54 | HP ---
CC: Dr. Velvet Lemon; Dr. Gracy Mc, Cardiology * MEDICINE HISTORY AND PHYSICAL: DATE OF ADMISSION: 05/06/19 PROVIDER: An Lester NP ATTENDING PHYSICIAN: Dr. Kayla Oro * (dictated by An Lester NP). PRIMARY CARE PROVIDER: Dr. Velvet Lemon. CHIEF COMPLAINT: Shortness of breath. HISTORY OF PRESENT ILLNESS: Ms. Hensley is a 78-year-old female, who presented to the ER this morning with concern for progressively worsening shortness of breath. At baseline, she does have some mild dyspnea that usually increases with exertion; however, it is usually improved with rest. She had started to feel more short of breath than normal starting yesterday and symptoms worsened until today. She also reports feeling as if her heart was pounding out of her chest and racing heartbeat, although she denies actual chest pain. She denies feeling feverish or subjective chills or sweats. She denies any other cold or flu-like symptoms, although her does state that she has some sinus congestion at baseline. Denies any cough or hemoptysis. She denies any leg swelling, abdominal pain, nausea, vomiting, diarrhea or urinary symptoms. Last , she tripped while she was in the bathroom and hit her head on the toilet. She does have some bruising to her right forehead, just above her eye, and she states that she had some left-sided neck pain from the fall, which has been improving. She denies any other symptoms or complaints. Here, in the ER, Ms. Hensley was placed on telemetry. She was found to be in atrial fibrillation, but rate is controlled. She was found to have a right lower lobe infiltrate on x-ray with pleural effusion. She also had concern for white blood cell count of 12,500, CRP of 26, and BNP greater than 1300. She was recently hospitalized from 04/14/19 through 04/19/19, with concern for CHF exacerbation, AFib with RVR, and elevated troponin. Given these findings, Hospital Medicine was consulted for admission. PAST MEDICAL HISTORY: Includes: 1. Chronic atrial fibrillation, not on anticoagulation due to history of HHTS. 2. 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 3. Coronary artery disease. 4. Hypertension. 5. Aortic stenosis. 6. Pulmonary hypertension. 7. Hyperlipidemia. 8. Heart failure with preserved ejection fraction. 9. Liver mass. HOME MEDICATIONS: 1. Cholecalciferol 1000 units 1 tab daily. 2. Alendronate 70 mg weekly. 3. Lisinopril 2.5 mg q.a.m. 4. Digoxin 0.125 mg. 5. Torsemide 20 mg daily. 6. Ensure 1 can a day. 7. Metoprolol succinate 100 mg b.i.d. and 50 mg at noon. ALLERGIES: Include CHLORPHENIRAMINE, ALKYLAMINE, ETHANOLAMINE, ETHYLENEDIAMINE , PIPERAZINE, PIPERIDINE, DIPHENHYDRAMINE, ENOXAPARIN, HEPARIN, LORATADINE, RIVAROXABAN, WARFARIN, and PEPPER. FAMILY HISTORY: Reviewed. She had a father and an older brother who of colon cancer and 2 other siblings that of lung cancer. Her mother at age 91 and had a history of hypertension. SOCIAL HISTORY: She denies any history of smoking. She says she enjoys a glass of white wine often. Denies any history of illicit drug use. 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 She is and has 3 children. Her , Leonard Hensley, is her surrogate decision maker and healthcare proxy in the event of emergency. REVIEW OF SYSTEMS: A 14-point review of systems was completed and is negative, except as per HPI. PHYSICAL EXAMINATION GENERAL: This is a 78-year-old female, who is sitting up in the ED stretcher, appears comfortable, in no acute distress. No dyspnea with conversation. VITAL SIGNS: Temperature 97.3, heart rate ranging from 89 to 92, respiratory rate 24, blood pressure 147/58, and O2 saturation is 91% to 94% on room air. HEENT: Head is normocephalic. There is evidence of right-sided ecchymosis to the right forehead, just above the orbital region. Pupils are equal, round, and reactive to light. Sclerae are anicteric. Oral mucosa is moist. There is no oropharyngeal erythema or exudate. NECK: Supple. No tenderness elicited with palpation. No lymphadenopathy appreciated. There is full range of motion to the neck. No carotid bruits auscultated. No JVD noted. LUNGS: Mildly decreased throughout. I do appreciate some mild crackles in the right middle and lower lobes. I do not appreciate any wheezing or rhonchi. CARDIAC: Irregularly irregular rate and rhythm. The rate is not tachycardic. There is a systolic murmur that is best heard along the right upper sternal border. Distal pulses are 2+ bilaterally in the dorsalis pedis, posterior tibialis, and radial areas. No edema noted. ABDOMEN: Soft, nontender, nondistended, with normoactive bowel sounds. No hepatosplenomegaly noted. There is no guarding or rebound tenderness. There is no CVA tenderness. MUSCULOSKELETAL: No clubbing or cyanosis. There is full range of motion of all 4 extremities. NEURO: She is alert and oriented x3. Cranial nerves II through XII are grossly intact. There are no focal deficits. Speech is clear and fluent. PSYCH: No apparent anxiety or depression. She is pleasant and cooperative. SKIN: Warm and dry. Again, there is ecchymosis to the right head, as per above. DIAGNOSTIC STUDIES/LAB DATA: CBC: WBC 12.5, hemoglobin 11.9, hematocrit 36, platelet count 207. CMP: Sodium 137, potassium 3.8, chloride 102, carbon dioxide 27, BUN 13, creatinine 0.48, glucose 112, lactic acid 1.1, calcium 10.5. Total bilirubin 1.8, AST 25, ALT 19, alk phos 171. Troponin 0.03. CRP 26.20. BNP greater than 1300. Urinalysis reviewed, negative for nitrites and bacteria. There are epithelial cells present. Chest x-ray as per above. EKG showed atrial fibrillation, rate of 97, and appeared similar to previous. Old medical records were reviewed. ASSESSMENT AND PLAN: This is a 78-year-old female, who presents today with shortness of breath and palpitations that appear secondary to a right-sided pneumonia. She will be admitted under observation status to the telemetry floor. Plan is as follows: 1. Right lower lobe pneumonia with concurrent pleural effusion: She has been hospitalized within the past 30 days and so we will cover her for hospital- associated pneumonia with Zosyn and vancomycin to start. She is nontoxic appearing, although she does meet sepsis requirements by SIRS requirement with elevated white blood cell count, increased respiratory rate and by SOFA criteria with increase in total bilirubin; she also has an elevated CRP. Source does appear to be lungs. We will attempt to obtain a sputum culture. We will also check for urine antigens. She does have a history of heart failure, but with preserved ejection fraction. She is on torsemide. She had previously received Lasix. However, she does appear to be somewhat dry as evidenced by assessment and her calcium levels. We will give her a 500 cc bag of fluids at 75 for additional hydration, recheck her labs tomorrow, hold off on any additional diuretics at this time. She does not appear to be fluid overloaded. We will monitor closely. She is not requiring oxygen and would prefer not to have oxygen given her history of recurrent epistaxis. We discussed using blow- by oxygen via mask if necessary, but at this time, it is reasonable holding this therapy. CURB 65 score is 2, basd on age and increased respirations, which warrants further observation in the hospital. 2. Hypercalcemia: This is mild. We will hold her vitamin D. She is to receive a small amount of fluids. We will recheck tomorrow. 3. Atrial fibrillation: This is rate controlled. She is on digoxin and metoprolol as an outpatient, which we will continue. We will check a dig level , which I have added on to her ER labs. Continue monitoring on telemetry. Again, she is not anticoagulated due to her history of recurrent epistaxis secondary to her hereditary hemorrhagic telangiectasia condition. 4. Heart failure: She does not appear to be in acute exacerbation. Continue home medication regimen of metoprolol and lisinopril, and we can resume torsemide tomorrow if she appears to be hemodynamically stable. Weights have been stable at home. Her has kept a daily log and she has been ranging from 115 to 118 consistently, and they are actively trying to help her gain weight. There has been no evidence of fluid overload or swollen extremities. We will monitor daily weights while she is here. 5. History of liver mass: Follow up with PCP as an outpatient. 6. FEN: She is ordered a heart-healthy diet. 7. DVT prophylaxis: She refuses heparin and any heparin products and these are also listed as her allergies. She is ordered SCDs. 8. Code status: She is a full code. 9. Disposition: Anticipate discharge to home when medically stable. TIME SPENT: Approximately 60 minutes were spent on this admission, with more than half that time spent [id number] with the patient and family obtaining history and physical, performing physical examination, and reviewing the plan of care. Plan of care was also reviewed with my attending, Dr. Oro, who is in agreement. AN LESTER NP [id number]/[facility] #: [id number] KJ
--- NOTE | 2019-05-06 18:34 | PN ---
Hospitalist Progress Note Date of Service: 05/06/19 Patient noted to have left wrist pain and swelling. XR ordered and showed probably left nondisplaced radial fracture. Wrist brace ordered and placed; ortho consult requested. Spoke with Dr. Pollard, who agreed with plan of care and will consult.
[2019-05-06] MEDS: Lidocaine PATCH 5%* 1 PATCH TRANSDERM SCH (19:50)
[2019-05-06] MEDS: ZOSYN 3.375 GM Q8H per EXTENDED INFUSION IVPB SCH ×2 (19:51)
[2019-05-06] MEDS: Metoprolol Succinate XL TAB* 50 MG PO SCH (21:58)
[2019-05-06] MEDS: Lidocaine Patch REMOVE* 1 NOTE MISC SCH (22:01)
[2019-05-07] MEDS: ZOSYN 3.375 GM Q8H per EXTENDED INFUSION IVPB SCH ×6 (03:48→20:02)
[2019-05-07 06:26] LABS: ABS Basophils 0.1 10^3/ul (0-0.2); ABS Lymphocytes 0.7 10^3/ul (1.0-4.8); ABS Monocytes 1.2 10^3/ul (0-0.8); ABS Neutrophils 6.8 10^3/ul (1.5-7.7); Eosinophil % 0.3 %; Hematocrit 35 % (35-47); Hemoglobin 11.2 g/dL (12.0-16.0); Lymphocyte % 7.6 %; Mean Corpuscular HGB Conc 32 g/dL (31-36); Mean Corpuscular Hemoglobin 26 pg (27-31); Mean Corpuscular Volume 81 fL (80-97); Mean Platelet Volume 8.4 fL (7.4-10.4); Nucleated Red Blood Cells % 0.1; Platelet Count 171 10^3/uL (150-450); Red Blood Count 4.35 10^6 /uL (3.70-4.87); Red Cell Distribution Width 17 % (10-15); White Blood Count 8.8 10^3/uL (3.5-10.8)
[2019-05-07 06:38] LABS: BUN/Creatinine Ratio 26.4 (8-20); Calcium 9.7 mg/dL (8.6-10.3); EGFR African American 135.3 (>60); EGFR Non-African American 111.9 (>60); Potassium 3.5 mmol/L (3.5-5.0)
[2019-05-07] MEDS: Lidocaine PATCH 5%* 1 PATCH TRANSDERM SCH (07:44)
[2019-05-07] MEDS: Metoprolol Succinate XL TAB* 50 MG PO SCH ×3 (07:46→20:02)
[2019-05-07] MEDS: Lisinopril TAB* 5 MG PO SCH (07:47)
[2019-05-07] MEDS: Vancomycin(*) 1,000 MG in NS 0.9% 250 ML* 250 ML IVPB SCH ×2 (08:03→17:49)
[2019-05-07] MEDS ORDERED: CHOLECALCIFEROL PO SCH (09:00)
[2019-05-07] MEDS ORDERED: Torsemide TAB 10 MG PO SCH (09:00)
--- NOTE | 2019-05-07 15:54 | PN ---
Subjective Date of Service: 05/07/19 Interval History: Admitted yesterday. Pt was given furosemide IV yesterday, resumed on torsemide PO, and reports excellent UOP. Weight down by 2 lbs. She no longer has SOB and has been walking to the bathroom. Still pending ortho consult. reported to care team that his is still drinking at least 2 glasses of wine per day, which may have contributed to her recent fall. Objective Active Medications: Acetaminophen (Tylenol Tab*) 650 mg PO Q4H PRN PRN Reason: FEVER/PAIN Digoxin (Lanoxin Tab*) 0.125 mg PO 1700 [facility] Last Admin: 05/06/19 17:27 Dose: Not Given Piperacillin Sod/Tazobactam (Sod 3.375 gm/ Sodium Chloride) 100 mls @ 25 mls/ hr IVPB Q8H [facility] Last Admin: 05/07/19 11:50 Dose: 25 mls/hr Vancomycin HCl 1,000 mg/ (Sodium Chloride) 250 mls @ 166.667 mls/hr IVPB Q12H [facility] Last Admin: 05/07/19 08:03 Dose: 167 mls/hr Lidocaine (Lidoderm 5% Patch*) 1 patch TRANSDERM DAILY [facility] Last Admin: 05/07/19 07:44 Dose: 1 patch Lisinopril (Prinivil Tab*) 2.5 mg PO QAM [facility] Last Admin: 05/07/19 07:47 Dose: 2.5 mg Metoprolol Succinate (Toprol Xl Tab*) 50 mg PO 1200 [facility] Last Admin: 05/07/19 11:50 Dose: 50 mg Metoprolol Succinate (Toprol Xl Tab*) 100 mg PO BID [facility] Last Admin: 05/07/19 07:46 Dose: 100 mg Ondansetron HCl (Zofran Inj*) 4 mg IV Q6H PRN PRN Reason: NAUSEA/VOMITING Pharmacy Consult (Vancomycin Per Pharmacy*) 1 note FOLLOW UP .VANC PER PHARMACY [facility]; Protocol Pharmacy Consult (Zosyn Per Pharmacy*) 1 note FOLLOW UP .ZOSYN PER PHARMACY [facility] Pharmacy Profile Note (Vancomycin Trough Check) 1 note FOLLOW UP 0530 ONE Stop: 05/08/19 05:31 Pharmacy Profile Note (Lidocaine Patch Remove*) 1 note N/A 2100 [facility] Last Admin: 05/06/19 22:01 Dose: 1 note Torsemide (Torsemide) 20 mg PO DAILY [facility] Last Admin: 05/07/19 07:46 Dose: 20 mg Vital Signs - 8 hr 05/07/19 05/07/19 07:50 11:15 Temperature 98.4 F Pulse Rate 84 Respiratory 20 20 Rate Blood Pressure 159/69 (mmHg) O2 Sat by Pulse 93 Oximetry Oxygen Devices in Use Now: None Appearance: frail appearing elderly woman in NAD; speaking in full sentences without increased WOB Ears/Nose/Mouth/Throat: Clear Oropharnyx - healing eccymosis over R orbit, Mucous Membranes Moist Neck: NL Appearance and Movements; NL JVP Respiratory: - - decreased breath sounds at right base Cardiovascular: - - irregularly irregular; systolic murmur Abdominal: NL Sounds; No Tenderness; No Distention Extremities: No Edema Neurological: Alert and Oriented x 3 Result Diagrams: 05/07/19 06:03 05/07/19 06:03 Microbiology and Other Data: Microbiology 05/06/19 12:07 Aerobic Blood Culture - Preliminary Blood Venous No Growth Day 1 Anaerobic Blood Culture - Preliminary No Growth Day 1 05/06/19 13:22 Legionella Urinary Antigen - Final Urine Negative Legionella Antigen Streptococcus pneumoniae Ag Screen - Final Negative S. pneumo Antigen Assess/Plan/Problems-Billing Assessment: 78W with hereditary hemorrhagic telangiectasia syndrome, afib not on AC, aortic stenosis, CAD, HFpEF, who is presenting with 1 day of progressive SOB, found with chronic R-sided pulm effusion and mild leukocytosis. - Patient Problems (1) Shortness of breath Comment: Pt with 1 day of SOB. CXR showing density obscuring the R lung base, likely pleural effusion, which was seen on prior CXRs. Last month, patient underwent CT chest for PE, which also showed this effusion. Only sign concerning for infection is new leukocytosis, however her WBC is only 12.5 and is without left shift. She denies fevers, chills, or nightsweats. CRP 26. Pt's symptoms significantly improved after diuretics with 2 lbs water loss. BNP > 1300 on presentation. She was also started on broad spectrum abx yesterday for HCAP. - given little evidence for infection, will DC antibiotics tomorrow if bcx remain negative - will continue to diuresis with torsemide, with double home dose - repeat CXR in the morning for effusion improvement (2) Distal radius fracture, left Comment: From recent mechanical fall. - pending official ortho recs - PT/OT ordered (3) Afib Comment: - cont Metoprolol and Digoxin. - cannot be on AC given HHT (4) CHF (congestive heart failure) Comment: - double home torsemide to 40mg daily - monitor weights, Is & Os (5) DVT prophylaxis Comment: - SCDs only, anticoagulation contraindicated. (6) DNR (do not resuscitate) Current Visit: No Status: Acute
[2019-05-07] MEDS: Digoxin TAB* 0.125 MG PO SCH (17:49)
[2019-05-07] MEDS: Lidocaine Patch REMOVE* 1 NOTE MISC SCH (20:10)
[2019-05-08] MEDS: ZOSYN 3.375 GM Q8H per EXTENDED INFUSION IVPB SCH ×4 (04:12→13:18)
[2019-05-08] MEDS ORDERED: Vancomycin Trough Check NOTE FOLLOW UP ONE (05:30)
[2019-05-08] MEDS ORDERED: Torsemide TAB 10 MG PO SCH (06:00)
[2019-05-08 06:57] LABS: Calcium 10.2 mg/dL (8.6-10.3); Magnesium 1.7 mg/dL (1.9-2.7); Potassium 3.2 mmol/L (3.5-5.0)
[2019-05-08 07:03] LABS: BUN/Creatinine Ratio 28.8 (8-20); EGFR African American 138.4 (>60); EGFR Non-African American 114.3 (>60)
[2019-05-08 07:30] LABS: Ferritin 21.9 ng/mL (11-307)
[2019-05-08 07:34] LABS: Folate 17.77 ng/mL (>3.99)
[2019-05-08] MEDS: Metoprolol Succinate XL TAB* 50 MG PO SCH ×3 (08:37→13:22)
[2019-05-08] MEDS: Lisinopril TAB* 5 MG PO SCH (08:38)
[2019-05-08] MEDS: Lidocaine PATCH 5%* 1 PATCH TRANSDERM SCH (08:40)
[2019-05-08] MEDS ORDERED: Cholecalciferol TAB* 1000 UNITS PO SCH (09:00)
[2019-05-08] MEDS ORDERED: Potassium Chloride* LIQUID 20 MEQ/15 ML UDC PO ONE (09:32)
--- NOTE | 2019-05-08 09:41 | PN ---
Subjective Date of Service: 05/08/19 Interval History: Pt received cast from ortho today. Increased diuresis yesterday and pt continues to feel better. Micro data negative - will DC antibiotics. Objective Active Medications: Acetaminophen (Tylenol Tab*) 650 mg PO Q4H PRN PRN Reason: FEVER/PAIN Cholecalciferol (Vitamin D Tab*) 1,000 units PO DAILY [facility] Last Admin: 05/08/19 08:37 Dose: 1,000 units Digoxin (Lanoxin Tab*) 0.125 mg PO 1700 [facility] Last Admin: 05/07/19 17:49 Dose: 0.125 mg Piperacillin Sod/Tazobactam (Sod 3.375 gm/ Sodium Chloride) 100 mls @ 25 mls/ hr IVPB Q8H [facility] Last Admin: 05/08/19 04:12 Dose: 25 mls/hr Vancomycin HCl 1,000 mg/ (Sodium Chloride) 250 mls @ 166.667 mls/hr IVPB Q12H [facility] Last Admin: 05/07/19 17:49 Dose: 166.667 mls/hr Magnesium Sulfate/Dextrose (Magnesium Sulfate 1 Gm Iv*) 1 gm in 100 mls @ 200 mls/hr IV ONCE ONE Stop: 05/08/19 09:58 Lidocaine (Lidoderm 5% Patch*) 1 patch TRANSDERM DAILY [facility] Last Admin: 05/08/19 08:40 Dose: 1 patch Lisinopril (Prinivil Tab*) 2.5 mg PO QAM [facility] Last Admin: 05/08/19 08:38 Dose: 2.5 mg Metoprolol Succinate (Toprol Xl Tab*) 50 mg PO 1200 [facility] Last Admin: 05/07/19 11:50 Dose: 50 mg Metoprolol Succinate (Toprol Xl Tab*) 100 mg PO BID [facility] Last Admin: 05/08/19 08:37 Dose: 100 mg Ondansetron HCl (Zofran Inj*) 4 mg IV Q6H PRN PRN Reason: NAUSEA/VOMITING Pharmacy Consult (Vancomycin Per Pharmacy*) 1 note FOLLOW UP .VANC PER PHARMACY [facility]; Protocol Pharmacy Consult (Zosyn Per Pharmacy*) 1 note FOLLOW UP .ZOSYN PER PHARMACY [facility] Pharmacy Profile Note (Lidocaine Patch Remove*) 1 note N/A 2100 [facility] Last Admin: 05/07/19 20:10 Dose: 1 note Potassium Chloride (Potassium Chloride Liquid) 40 meq PO ONCE ONE Stop: 05/08/19 09:33 Torsemide (Torsemide) 40 mg PO DAILY [facility] Last Admin: 05/08/19 08:37 Dose: 40 mg Vital Signs - 8 hr 05/08/19 05/08/19 03:41 07:56 Temperature 97.3 F 98.0 F Pulse Rate 76 74 Respiratory 18 20 Rate Blood Pressure 140/58 156/52 (mmHg) O2 Sat by Pulse 94 94 Oximetry Oxygen Devices in Use Now: None Appearance: frail elderly woman in NAD, sitting in chair at bedside Ears/Nose/Mouth/Throat: Clear Oropharnyx - healing eccymosis around R orbit, Mucous Membranes Moist Neck: NL Appearance and Movements; NL JVP Respiratory: - - decreased sounds at R base; otherwise clear Extremities: - - wwp, no LE edema Skin: No Rash or Ulcers Neurological: Alert and Oriented x 3 Result Diagrams: 05/07/19 06:03 05/08/19 06:21 Microbiology and Other Data: Microbiology 05/06/19 12:07 Aerobic Blood Culture - Preliminary Blood Venous No Growth Day 1 Anaerobic Blood Culture - Preliminary No Growth Day 1 05/06/19 13:22 Legionella Urinary Antigen - Final Urine Negative Legionella Antigen Streptococcus pneumoniae Ag Screen - Final Negative S. pneumo Antigen Assess/Plan/Problems-Billing Assessment: 78W with hereditary hemorrhagic telangiectasia syndrome, afib not on AC, aortic stenosis, CAD, HFpEF, who is presenting with 1 day of progressive SOB, found with chronic R-sided pulm effusion and mild leukocytosis. - Patient Problems (1) Shortness of breath Comment: Pt with 1 day of SOB. CXR showing density obscuring the R lung base, likely pleural effusion, which was seen on prior CXRs. Last month, patient underwent CT chest for PE, which also showed this effusion. Only sign concerning for infection is new leukocytosis, however her WBC is only 12.5 and is without left shift. She denies fevers, chills, or nightsweats. CRP 26. Pt's symptoms significantly improved after diuretics with 2 lbs water loss. BNP > 1300 on presentation. She was also started on broad spectrum abx for HCAP. - given little evidence for infection, will DC antibiotics - will continue to diuresis with torsemide, with double home dose (2) Distal radius fracture, left Comment: From recent mechanical fall. - ortho applied cast, will follow up in a week (3) Afib Comment: - cont Metoprolol and Digoxin. - cannot be on AC given HHT (4) CHF (congestive heart failure) Comment: - double home torsemide to 40mg daily - monitor weights, Is & Os (5) DVT prophylaxis Comment: - SCDs only, anticoagulation contraindicated. (6) DNR (do not resuscitate) Current Visit: No Status: Acute
[2019-05-08] MEDS ORDERED: Magnesium Sulfate 1 GM IV* 1 GM/100 ML BAG IV ONE (10:00)
[2019-05-08] MEDS: Vancomycin(*) 1,000 MG in NS 0.9% 250 ML* 250 ML IVPB SCH (10:01)
[2019-05-08 12:34] VITALS: BP 110/40
--- NOTE | 2019-05-08 13:47 | CONS ---
CONSULTATION REPORT: DATE OF CONSULT: 05/08/19 PRIMARY CARE PROVIDER: Dr. Velvet Lemon. CHIEF COMPLAINT: Left wrist fracture. HISTORY OF PRESENT ILLNESS: Ms. Hensley is a 78-year-old female who presented to the emergency room on 05/06/19 after a mechanical fall at home resulting in left wrist pain. The patient slipped and fell into the bath tub, landing on her outstretched left hand and hitting her face. She does not believe she has any other injuries. She did not lose consciousness prior to the fall. She does not have any chest pain, shortness of breath, or dizziness. While hospitalized, a left distal radius fracture was identified and a removable wrist brace was placed. Today, she has no pain in her left wrist. No numbness or tingling into her digits. PAST MEDICAL HISTORY: Chronic atrial fibrillation, now on anticoagulation; hereditary hemorrhagic telangiectasia syndrome; coronary artery disease; hypertension; aortic stenosis; pulmonary hypertension; hyperlipidemia; heart failure with preserved ejection fraction; liver mass. HOME MEDICATIONS: 1. Vitamin D 1000 units 1 tab daily. 2. Alendronate 70 mg weekly. 3. Lisinopril 2.5 mg daily. 4. Digoxin 0.125 mg daily. 5. Torsemide 20 mg daily. 6. Ensure 1 can a day. 7. Metoprolol succinate 100 mg p.o. b.i.d. and 50 mg at noon. ALLERGIES: CHLORPHENIRAMINE, ALKYLAMINE, ETHANOLAMINE, ETHYLENEDIAMINE, PIPERAZINE, PIPERIDINE, DIPHENHYDRAMINE, ENOXAPARIN, HEPARIN, LORATADINE, RIVAROXABAN, WARFARIN, and pepper. FAMILY HISTORY: Mother of hypertension at age 91. Father of colon cancer. SOCIAL HISTORY: is Leonard Hensley. He is the surrogate decision maker. She does not smoke or use illicit drugs. She does drink white wine. REVIEW OF SYSTEMS: General: Denies fever or chills. Cardiac: Denies any chest pain. Respiratory: Denies any shortness of breath. GI: Denies nausea, vomiting, or diarrhea. Musculoskeletal: Positive for left wrist fracture. No other musculoskeletal pain. Neurologic: Denies decreased sensation or numbness of the extremities. Hematologic: Positive for hereditary hemorrhagic telangiectasia syndrome. PHYSICAL EXAM: Vital Signs: Temperature 98.1, pulse rate 82, respiratory rate 20, oxygen saturation 95%, blood pressure 110/33. General Appearance: Sitting comfortably in a chair. HEENT: Right side of the face ecchymosis. Respiratory : Normal rate and effort of breathing. Abdomen: Nondistended. Cardiovascular : Capillary refill is less than 2 seconds distally before and after cast placement in bilateral upper extremities. Neurologic: Sensation intact to light touch throughout left upper extremity both before and after cast placement. Musculoskeletal: Left upper extremity with removable wrist brace, this was removed. The patient has minimal ecchymosis over the left wrist. There is no obvious bony deformity. There is no open fracture. There is no edema in the wrist or hand. The forearm is compressible. She is able to flex and extend MCPs, DIPs, and PIPs throughout all digits. Able to produce thumbs- up, okay, and cross-finger sign. Short-arm cast was applied. The patient is neurovascularly intact distally after placement and cast is comfortable. LUE: the patient is able to flex and extend at the left elbow and shoulder without pain. Bilateral lower extremities and contralateral upper extremities skin envelop intact. No tenderness to palpation. No obvious bony deformity. Able to flex and extend major joints without pain. DIAGNOSTIC STUDIES: Left wrist x-ray is positive for nondisplaced fracture of the left distal radius. ASSESSMENT: Left distal radius fracture. PLAN/RECOMMENDATIONS: Short-arm cast was placed on the left wrist, tolerated well by the patient. She will be nonweightbearing, though she can wiggle exposed fingers and may use a platform walker if needed. She can follow up with Dr. Pollard in 7 to 10 days in the office. Please contact Orthopedics if any further concerns. TRISHA PRESCOTT [id number]/[facility] #: [id number] KJ
--- NOTE | 2019-05-08 21:46 | DS ---
CC: Dr. Velvet Lemon; Dr. Gracy Mc * DISCHARGE SUMMARY: DATE OF ADMISSION: 05/06/19 DATE OF DISCHARGE: 05/08/19 PRIMARY CARE PROVIDER: Dr. Velvet Lemon. COMPLAINT INVESTIGATOR: Dr. Gracy Mc. PRIMARY DIAGNOSES: 1. Heart failure exacerbation. 2. Left distal radius fracture. SECONDARY DIAGNOSES: 1. Atrial fibrillation, not on anticoagulation. 2. Aortic stenosis. 3. Coronary artery disease. 4. Hemorrhagic telangiectasia syndrome. DISCHARGE MEDICATIONS: 1. Torsemide 40 mg daily. 2. Metoprolol succinate 100 mg in the morning, 50 mg at noon, 100 mg in the evening. 3. Digoxin 0.125 daily. 4. Lisinopril 2.5 mg daily. 5. Alendronate 70 mg weekly. 6. Vitamin D3 one tablet daily. HISTORY OF PRESENT ILLNESS: Ms. 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 At baseline, she has mild dyspnea that usually increases with exertion and improves with rest. One day prior to presentation, she started to feel more short of breath than her usual and it progressed until the morning of presentation when she decided to come to the emergency room. She reports feeling as if her heart is pounding out of her chest, although she denies chest pain, she denies fevers, chills, or sweats. She denies any other upper respiratory symptoms. She denies cough or sputum production. She denies leg swelling, abdominal pain, nausea, vomiting, diarrhea, or urinary symptoms. Of note, several days prior to this presentation, she suffered a mechanical fall in the bathroom after a couple of glasses of wine and had hit her head on the toilet. She presented to the emergency room here and underwent a head and C -spine CT, which were unremarkable and she was discharged from the emergency room. Also, of note, she had a hospital admission approximately 3 weeks ago for rapid atrial fibrillation and volume overload. HOSPITAL COURSE: In the emergency room, the patient was noted to have atrial fibrillation, but her rate was controlled. Chest x-ray showed a right-sided pleural effusion, which is unchanged from prior seen at last admission approximately 3 weeks ago. Her labs were significant for a BNP greater 1300 with a white blood cell count of 12.5. Given recent hospitalization for CHF exacerbation, Medicine was consulted for possible healthcare-associated pneumonia. She was started on vancomycin and Zosyn, admitted to the hospital. Of note, the patient was also given IV Lasix in the emergency room and had significant urinary output. Her was keeping a home daily weight log and it appears that her weight after recent discharge was 113 pounds and on the day of presentation, she was 118 pounds. By next morning, the patient reported significant improvement in her dyspnea and states that she actually feels back to her baseline. Her microbiology data had negative blood cultures, urine cultures, and negative urine antigens for legionella and Strep pneumo. After 2 days, her antibiotics were stopped given significant improvement after diuresis and near normal CRP. With fluid seen on chest x-ray and BNP, the presentation was felt like most likely from volume overload, especially in the context of her increasing weight at home. Her home diuretic dose was doubled and the patient felt comfortable going home with close Cardiology followup. She did also require electrolyte repletion and states that she will be able to follow up BMP a couple of days after discharge and close followup with primary care physician and commissary helper. Also, in the hospital, the patient had reported persistent wrist pain since previous fall. A wrist x-ray on the left was obtained, which showed a non- displaced fracture of the distal radius. She was seen and evaluated by the orthopedic surgery team and a cast was placed on her left arm and she was recommended to be non-weightbearing though she should be wiggling her exposed fingers. She was asked to follow up with Dr. Pollard in 7 to 10 days. PERTINENT LABS AND STUDIES: Hemoglobin 11.9 with MCV 81. CRP 26. BNP over 1300. B12 682 and folate 17. 1.3. Chest x-ray with persistent density obscuring the right lung base, slightly larger when compared to 04/16/19 chest x-ray, pleural effusion with compressive atelectasis as the most likely diagnosis. Wrist x-ray with non-displaced fracture involving the distal aspect of the radius. DISCHARGE PLAN: The patient is to obtain basic metabolic panel with magnesium lab test later this week given electrolyte repletion required while admitted. She is to follow up closely with her PCP and commissary helper for ongoing optimization of her atrial fibrillation and heart failure medications. Her was instructed to continue monitoring her weights daily and to contact a physician if her weight if noted to increase again. She will also follow up with Dr. Pollard in [facility] in 1 week for monitoring of her wrist fracture. She was instructed to cut back on her alcohol intake given recent fall and eat a healthy diet, low in processed food and high in protein given her desire to gain weight. She should perform activity as tolerated. She is to continue her medications as listed above with only change to her home medications notable for doubling of her torsemide dose to 40 mg daily. She and her were educated on return precautions which include, but are not limited to new symptoms of fevers, chills, productive cough, chest pain. DISPOSITION: Home. CONDITION: Improved. TIME SPENT: Approximately 60 minutes was spent on discharge of this patient, more than half of which was spent at bedside for interview and exam or with care coordination. [id number]/[facility] #: [id number] MTDD
[2019-05-11] MEDS ORDERED: Vancomycin Trough Check NOTE FOLLOW UP ONE (05:30)
== END 2019-05-08 14:14 | disposition home or self-care (01) | DRG 293 ==
LOC: ED 10:40 → MEDTELE 13:42 → OBSVTOIN 13:42 → UNDOADMOB 13:42 → INTOOBSV 13:42 → OBSVTOIN 05-07 12:20 → UNDODISIN 05-08 14:14
PROVIDERS: ADMIT Internal Medicine; ATTEND Internal Medicine
DX: I11.0 Hypertensive heart disease with heart failure (principal); I50.9 Heart failure, unspecified; I27.20 Pulmonary hypertension, unspecified; E83.52 Hypercalcemia; R16.0 Hepatomegaly, not elsewhere classified; I48.2 Chronic atrial fibrillation; I35.0 Nonrheumatic aortic (valve) stenosis; I78.1 Nevus, non-neoplastic; I25.10 Atherosclerotic heart disease of native coronary artery without angina pectoris; I10 Essential (primary) hypertension; E78.5 Hyperlipidemia, unspecified; Z66 Do not resuscitate; S52.502D Unspecified fracture of the lower end of left radius, subsequent encounter for closed fracture with routine healing; W01.0XXD Fall on same level from slipping, tripping and stumbling without subsequent striking against object, subsequent encounter; Z79.01 Long term (current) use of anticoagulants; Z79.899 Other long term (current) drug therapy; Z88.8 Allergy status to other drugs, medicaments and biological substances; Z91.018 Allergy to other foods; Z80.0 Family history of malignant neoplasm of digestive organs; Z80.1 Family history of malignant neoplasm of trachea, bronchus and lung; Z82.49 Family history of ischemic heart disease and other diseases of the circulatory system
CPT/HCPCS: 36415; 70450; 71046; 72125; 80048; 80053; 80162; 80202; 80320; 81003; 81015; 82550; 82553; 82607; 82728; 82746; 83540; 83605; 83735; 83880; 84145; 84484; 85025; 86140; 87040; 87086; 87899; 93005; 99283; 99284; A9270-GY; G0480; G8978-GP-CJ; G8979-GP-CH; G8987-GO-CJ; G8988-GO-CI; J0696; J1940; J2543; J3370; J3475

== ENCOUNTER 2019-07-09 10:16 | Emergency (ER) | payer MEDICARE, BC ==
--- NOTE | 2019-07-09 10:35 | ED ---
Neurological HPI - HPI Summary HPI Summary: This pt is a 78 Y/O F brought in by [facility] to [facility] for tremors that occurred this morning at 0900 during breakfast. She states that she became nauseas and was bent over the sink when the first tremor started. She states that she was awake and oriented during the episode. Her states that she was standing in the kitchen and began to shaking violently. She had another episode following the first one which was the same in presentation. Her states that the episodes lasted about a minute long each. She denies any weakness in her extremities, diarrhea, visual changes, headaches, and fevers. She states that she has abdominal pain and has been vomiting since waking up this morning. She has a PMHx of AFIB, HHT, Hypertension, and mitral valve disorder. She has no aggravating or alleviating factors. Her helped to steady her during the episode. - History of Current Complaint Stated Complaint: FULL BODY TREMORS Time Seen by Provider: 07/09/19 10:20 Hx Obtained From: Patient Onset/Duration: Sudden Onset, Resolved Timing: Intermittent Episodes Lasting: - 1 minute each Frequency: Episodes x___ - 2, Episodes Lasting ____ (in Mins/Days/Weeks/Years) - 1 minute Aggravating: Unknown Alleviating: Spontanious Resolution Associated Signs and Symptoms: Positive: Negative - diarrhea, Nausea/Vomiting. Negative: Visual Changes, Headache, Weakness, Fever - Additional Pertinent History Primary Care Physician: PAULINO - Allergy/Home Medications Allergies/Adverse Reactions: Allergies Allergy/AdvReac Type Severity Reaction Status Date / Time chlorpheniramine Allergy Intermediate See Comment Verified 05/06/19 10:48 Antihistamines - Alkylamine Allergy See Comment Verified 05/06/19 10:48 Antihistamines - Ethanolamine Allergy See Comment Verified 05/06/19 10:48 Antihistamines - Allergy See Comment Verified 05/06/19 10:48 Ethylenediamine Antihistamines - Piperazine Allergy See Comment Verified 05/06/19 10:48 Antihistamines - Piperidine Allergy See Comment Verified 05/06/19 10:48 diphenhydramine Allergy See Comment Verified 05/06/19 10:48 enoxaparin [From Lovenox] Allergy Bleeding Verified 05/06/19 10:48 heparin Allergy Bleeding Verified 05/06/19 10:48 loratadine Allergy See Comment Verified 05/06/19 10:48 rivaroxaban [From Xarelto] Allergy Bleeding Verified 05/06/19 10:48 warfarin Allergy Bleeding Verified 05/06/19 10:48 pepper (genus Capsicum) AdvReac Sneezing Verified 05/06/19 10:48 Home Medications: Home Medications Torsemide TAB* [Demadex 20 MG*] 20 mg PO DAILY 07/09/19 [History Confirmed 07/09] PMH/Surg Hx/FS Hx/Imm Hx Previously Healthy: Yes Endocrine/Hematology History: Reports: Other Endocrine/Hematological Disorders - epistaxis (HHT), Osler Telangiectasia Denies: Hx Anticoagulant Therapy, Hx Diabetes, Hx Sickle Cell Disease Cardiovascular History: Reports: Hx Atrial Fibrillation, Hx Congestive Heart Failure, Hx Coronary Artery Disease, Hx Hypercholesterolemia, Hx Hypertension - ON MEDS PT STATES CONTROLLED, Other Cardiovascular Problems/Disorders - Mitral Valve disorder Respiratory History: Reports: Other Respiratory Problems/Disorders - HX OF EPISTAXIS, HAS ONE NOW, SOUND STUFFY DUE TO PACKING IN NOSE PRESENTLY Denies: Hx Asthma, Hx Chronic Obstructive Pulmonary Disease (COPD) GI History: Denies: Hx Cirrhosis, Other GI Disorders History: Denies: Other Problems/Disorders Musculoskeletal History: Reports: Hx Arthritis, Other Musculoskeletal History - left Hip Fx with repair 09/25/16 Denies: Hx Osteoporosis Sensory History: Reports: Hx Cataracts - bilat surgery, Hx Contacts or Glasses - reading small print, Hx Hearing Aid - bilateral left worse, Hx Hearing Problem Opthamlomology History: Reports: Hx Cataracts - bilat surgery, Hx Contacts or Glasses - reading small print Neurological History: Denies: Hx Headaches, Hx Seizures, Hx Transient Ischemic Attacks (TIA), Other Neuro Impairments/Disorders Psychiatric History: Denies: Hx Anxiety, Hx Depression - Cancer History Hx Chemotherapy: No - Surgical History Surgery Procedure, Year, and Place: SEVERAL NOSE SURGERIES FOR EPISTAXIS, [facility] + . PARTIAL HYSTERECTOMY IN [place]LY , [place]. left Hip Fx with repair . bilat cataract surgery with IOL Hx Anesthesia Reactions: No - Family History Known Family History: Negative: Hypertension, Diabetes - Social History Alcohol Use: Daily Alcohol Amount: 2 GLASS WINE/NIGHT Hx Substance Use: No Substance Use Type: Reports: None Hx Tobacco Use: No Smoking Status (MU): Never Smoked Tobacco Review of Systems Negative: Fever Eyes: Negative Positive: Abdominal Pain, Vomiting, Nausea. Negative: Diarrhea Neurological: Other - tremors Negative: Headache, Weakness All Other Systems Reviewed And Are Negative: Yes Physical Exam - Summary Physical Exam Summary: Constitutional: Well-developed, Well-nourished, Alert. (-) Distressed Skin: Warm, Dry HENT: Normocephalic; Atraumatic Eyes: Conjunctiva normal Neck: Musculoskeletal ROM normal neck. (-) JVD, (-) Stridor, (-) Tracheal deviation Cardio: Rhythm regular, rate normal, Heart sounds normal; Intact distal pulses; The pedal pulses are 2+ and symmetric. Radial pulses are 2+ and symmetric. (-) Murmur Pulmonary/Chest wall: Effort normal. (-) Respiratory distress, (-) Wheezes, (-) Rales Abd: Soft. (-) Tenderness, (-) Distension, (-) Guarding, (-) Rebound Musculoskeletal: (-) Edema Lymph: (-) Cervical adenopathy Neuro: Alert, Oriented x3, Strength normal, Cranial nerves II-XII are grossly intact. (-) Dysmetria, (-) Nystagmus, (-) Ataxia by finger to nose testing, (-) Sensory deficit. Psych: Mood and affect Normal NIH: 0 Triage Information Reviewed: Yes Vital Signs Reviewed: Yes Diagnostics - Laboratory Result Diagrams: 07/09/19 10:48 07/09/19 10:47 Lab Statement: Any lab studies that have been ordered have been reviewed, and results considered in the medical decision making process. - CT Brain CT CT Interpretation Completed By: Radiologist Summary of CT Findings: Chronic findings as described above without acute intracranial findings that. would correlate to the patient's current clinical presentation. ED physician has reviewed this report. - EKG 1038 Cardiac Rate: NL - 65 BPM EKG Rhythm: Atrial Fibrillation ST Segment: Normal Ectopy: None Summary of EKG Findings: EKG at 1038 found a NSR at 65 BPM with atrial fibrillation and no STEMI. Interpreted by Dr. Cunningham at 1042 07/09/19. NIH Scale - NIH Scale Level of Consciousness: Alert/Keenly Responsive Ask Patient the Month and His/Her Age: Both Correct Ask Pt to Open/Close Eyes and Stock Checkerer/Release Non-Paretic Hand: Both Correctly Best Gaze (Only Horizontal Eye Movement): Normal Visual Field Testing: No Visual Loss Facial Paresis-Pt to Smile & Close Eyes or Grimace Symmetry: Normal/Symmetrical Motor Function - Right Arm: No Drift-Holds 10 Seconds Motor Function - Left Arm: No Drift-Holds 10 Seconds Motor Function - Right Leg: No Drift-Holds 10 Seconds Motor Function - Left Leg: No Drift-Holds 10 Seconds Limb Ataxia-Must be out of Proportion to Weakness Present: Absent Sensory (Use Pinprick to Test Arms/Legs/Trunk/Face): Normal Best Language (Describe Picture, Name Items): No Aphasia Dysarthria (Read Several Words): Normal Extinction and Inattention: No Abnormality Total Score: 0 Course/Dx - Course Course Of Treatment: Patient is here with possible seizure-like activity. Patient had rhythmic jerking of all 4 extremities but was conscious during this with no postictal confusion. Patient had a negative CT had a CT scan of her brain which was negative for hemorrhage given her history of HHT. Patient able to perform which is grossly unremarkable. Patient EKG showed afib with no other abnormality. Patient had a normal neurologic exam here. Neurology was called and do not believe this represents seizures but will follow-up with patient GWEN this week. - Diagnoses Provider Diagnoses: Occasional tremors, Afib - Physician Notifications Discussed Care Of Patient With: Faraz Hernández Time Discussed With Above Provider: 12:33 Instructed by Provider To: Other - Dr. Hernández, neurology, stated that he will call her in the morning to get prompt neurology follow up. She does not need admission, monitor for 24 hours, if she has more seizure activity return to the ED. Discharge ED - Sign-Out/Discharge Documenting (check all that apply): Patient Departure - discharge Patient Received Moderate/Deep Sedation with Procedure: No - Discharge Plan Condition: Stable Disposition: HOME Patient Education Materials: A-fib (Atrial Fibrillation) (ED), Tremors (ED) Referrals: Velvet Lemon MD [Primary Care Provider] - 1 Week Faraz Hernández MD [Medical Doctor] - 1 Day Additional Instructions: Dr. Hernández, neurology, stated that he will call you in the morning of 07/10/19 to get prompt neurology follow up. You do not need admission at this time. Be under constant monitor for 24 hours and if you have any more seizure activity return to the emergency department. - Billing Disposition and Condition Condition: STABLE Disposition: Home - Attestation Statements Document Initiated by Scribe: Yes Documenting Scribe: Carson Wang Provider For Whom Scribe is Documenting (Include Credential): Fernando Cunningham MD Scribe Attestation: Carson Mayorga, scribed for Fernando Cunningham MD on 07/09/19 at 1238. Scribe Documentation Reviewed: Yes Provider Attestation: The documentation as recorded by the Carson golden accurately reflects the service I personally performed and the decisions made by Fernando espinosa MD Status of Scribe Document: Viewed
--- OUTSIDE RECORDS SUMMARY | 2019-07-09 10:46 | XMS REPORT | Summary of Care ---
:1940 Author Organization [facility] Address [address] [facility] [place] [address] Care Team Providers Name Role Phone Velvet Lemon MD Primary Care Provider Encounter Details Date Type Department Care Team Description 07/05/2019 Hospital Encounter [facility] 4 Sy Rios MD Short Procedure [address] [place] [address] [place] [address] [phone] Allergies Active Allergy Reactions Severity Noted Date Comments Altaryl Other 12/22/2007 Tachycardia Aspirin Other 12/07/2006 Pt states d/t HHT documented as of this encounter (statuses as of 07/06/2019) Medications Medication Sig Dispensed Refills Start Date End Date Status ENSURE HIGH CALCIUM PO Take by mouth. 0 Active LIQD Daily cholecalciferol (VITAMIN Take 1,000 0 Active D) 1000 units Oral Tab Units by mouth. digoxin (LANOXIN, Take 0.125 mg 0 Active DIGITEK) 250 MCG Oral Tab by mouth DAILY. torsemide (DEMADEX) 20 MG Take 20 mg by 0 Active Oral TabIndications: 40 mouth DAILY. mg Mon/Wed/Fri and 20 mg Indications: 40 Sun/Tues/Thurs/Sat mg Mon/Wed/Fri and 20 mg Sun/Tues/Thurs/ Sat metoprolol succinate Take 100 mg by 0 Active (TOPROL XL) 100 MG Oral mouth TABLET SR 24 HR DIRECTED. 100 mg am and pm, 50 mg mid day and 100 mg pm potassium chloride Take 20 mEq by 0 Active (KLOR-CON) 20 MEQ Oral mouth TWICE Tab CR DAILY. 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 Chronic atrial fibrillation Overview: Dr. Mc documented as of this encounter (statuses as of 07/06/2019) Social History Tobacco Use Types Packs/Day Years Used Date Never Smoker Smokeless Tobacco: Never Used Alcohol Use Drinks/Week oz/Week Comments Yes 14 Standard drinks or equivalent 14.0 Sex Assigned at Date Recorded Not on file Job Start Date Occupation Industry Not on file Not on file Not on file Travel History Travel Start Travel End No recent travel history available. documented as of this encounter Last Filed Vital Signs Vital Sign Reading Time Taken Comments Blood Pressure 176/72 07/05/2019 12:25 PM EDT Pulse 72 07/05/2019 12:25 PM EDT Temperature 36.4 07/05/2019 9:30 AM EDT C (97.6 F) Respiratory Rate 16 07/05/2019 12:25 PM EDT Oxygen Saturation 99% 07/05/2019 12:25 PM EDT Inhaled Oxygen Concentration - - Weight 50.3 kg (111 lb) 07/05/2019 9:30 AM EDT Height 172.7 cm (5' 8") 07/05/2019 9:30 AM EDT Body Mass Index 16.88 07/05/2019 9:30 AM EDT documented in this encounter Discharge Summaries Sy Salas MD - 07/05/2019 3:28 PM EDT [facility] [place]. [id number] Interventional Radiology Discharge Summary Patient: Aminah Hensley Admission Date: 07/05/19 Discharge Date: 07/05/2019 Attending: PCP: Velvet Lemon 1. Reason for admission: Liver mass on MRI, CT, TEUS. 2. Diagnosis: Liver mass with indeterminate imaging characteristics 3. Procedures: US guided liver biopsy 4. Complications: none 5. Condition on Discharge: Stable and denies pain 6. Activity: no lifting, Driving, or Strenuous exercise for 24 hrs 7. Follow-up: Will follow path No orders of the defined types were placed in this encounter. Author: Sy Salas MD 07/05/2019 15:52 documented in this encounter Plan of Treatment Date Type Specialty Care Team Description 07/13/2019 Office Visit Family Practice Velvet Lemon MD [address] [place] [address] [phone] Name Type Priority Associated Order Schedule Diagnoses PREPARE PATIENT Diagnostic/Surgical Routine One Time for 1 FOR: Procedures Occurrences starting 07/05/2019 until 07/05/2019 Health Maintenance Due Date Last Done Comments ZOSTER IMMUNIZATION SERIES 1991 (1 of 2) COLONOSCOPY SCREENING 04/10/2018 04/10/2015, 04/26/2012 (Previously completed), 04/30/2009, Additional history exists PNEUMOCOCCAL 65+YRS (1 of 2 03/07/2020 Postponed from - PCV13) 2006 (Patient refused) DEPRESSION SCREENING 03/31/2020 03/31/2019 FALL RISK ASSESSMENT 03/31/2020 03/31/2019, 03/31/2019 MEDICARE ANNUAL WELLNESS 03/31/2020 03/31/2019, 03/09/2018, VISIT 02/20/2014, Additional history exists OSTEOPOROSIS SCREENING 02/15/2023 02/15/2013 (Declined) HPV IMMUNIZATION SERIES Aged Out No longer eligible based on patient's age to complete this topic MENINGOCOCCAL VACCINE IMM Aged Out No longer eligible based on patient's age to complete this topic documented as of this encounter Goals Goal Patient Goal Associated Recent Patient-Stated? Author Type Problems Progress Blood Pressure Blood Pressure 176/72 No Ion, < 150/90 (07/05/2019 Velvet, 12:25 PM EDT) Note: This is an individualized treatment (blood pressure) goal for Aminah Hensley: Displayed above (on the left) is your goal for blood pressure control. Your most recent blood pressure is also shown above, on the right. You should try to achieve blood pressures that are lower than your goal listed above (on the left). Weight increase vs. 18 mo CHF 0 (07/05/2019 9:30 AM EDT) Deborah Lundberg RN min (lbs) < 5 Note: This is an individualized treatment (congestive heart failure, CHF) goal for Aminah Hensley: Displayed above (on the right) is how many pounds you are in excess of your lowest weight over the past 18 months. Note that lower numbers are better. Excessive weight gain often indicates fluid reten tion and worsening heart failure. You should contact your doctor immediately if the above number is too high (above your goal, the number on the left). Consume a hn-jtvvq-kxol diet Lifestyle Zee Lundberg RN Note: This is an individualized lifestyle goal for Aminah Hensley: Please do not add additional salt to your food. Additional salt may lead to fluid retention and worsen your congestive heart failure. Take all prescribed medications as Self-management No Velvet Lemon MD directed Note: This is an individualized self-management goal for Aminah Hensley: Please take all prescribed medications as directed. 1. Do not skip doses. If you cannot afford your medications, talk with your doctor. 2. Use a pill reminder system such as a pill box if needed. Your pharmacist can help you with this. 3. Contact your Pharmacy 5 days before your medication runs out. If you cannot take your medications for any reasons, talk with your doctor. 4. Please bring all of your medication bottles and inhalers (or a list of all your medications/inhalers) with you to every visit. Potential barriers to meeting all of your care plan goals will continue to be addressed on an ongoing basis. Check your weight daily Self-management No Zee Martinez RN Note: This is an individualized self-management goal for Aminah Hensley: Please check your weight daily. Refer to the accompanying CHF treatment goal and call your doctor immediately for further instructions on how to respond to unexpected weight gain. documented as of this encounter Procedures Procedure Name Priority Date/Time Associated Diagnosis Comments SP BIOPSY LIVER Routine 07/05/2019 12:40 PM Liver lesion Results for this EDT procedure are in the results section. IMAGING 07/05/2019 12:00 PM ORDER/RESULT EDT TISSUE EXAM Routine 07/05/2019 11:44 AM Results for this EDT procedure are in the results section. documented in this encounter Results SP BIOPSY LIVER (07/05/2019 12:40 PM EDT) Specimen Impressions Performed At Successful ultrasound guided targeted right hepatic mass biopsy. Plan: Routine site care. Biopsy results will be followed. Thank you for allowing me to participate in the care of this patient. Signed by Sy Salas MD on 07/06/2019 11:13 AM Narrative Performed At Procedure(s): SP BIOPSY LIVER Date of service: 07/05/2019 11:52 AM Clinical Indication: 78-year-old female with a mass in the right hepatic lobe with indeterminate imaging features on CT, MRI, and transesophageal ultrasound. Request for percutaneous biopsy. Physician: Sy Salas MD Anesthesia: IV Versed and IV fentanyl, local lidocaine. Complications: None Procedure: After informed consent was obtained, the patient was placed in the supine position on the procedural table. A procedural timeout was performed verifying proper patient, procedure and position. Ultrasound was used to image the right upper quadrant. A spot was marked, then prepped and draped in usual sterile fashion using 2% chlorhexidine soap. Lidocaine was used for local anesthesia. Under constant ultrasound guidance, the right hepatic lobe lesion was accessed percutaneously using a 17-gauge introducer needle. The stylet was removed and subsequently total of 3 separate 18-gauge cores were obtained and passed on to the pathologist who was present in the room. Ultrasound images were saved. Postprocedural ultrasound image was saved, demonstrating no immediate complication. The needle was removed and pressure held to achieve hemostasis. A sterile dressing was placed. The procedure was ended and the patient transferred back to the preprocedural area in stable condition. Findings: 1. Successful ultrasound-guided biopsy of the right hepatic lobe lesion. 2. Samples placed on touch prep slides and in formalin for pathological evaluation, will follow. Procedure Note Interface, Rad Results - 07/06/2019 11:15 AM EDT Procedure(s): SP BIOPSY LIVER Date of service: 07/05/2019 11:52 AM Clinical Indication: 78-year-old female with a mass in the right hepatic lobe with indeterminate imaging features on CT, MRI, and transesophageal ultrasound. Request for percutaneous biopsy. Physician: Sy Salas MD Anesthesia: IV Versed and IV fentanyl, local lidocaine. Complications: None Procedure: After informed consent was obtained, the patient was placed in the supine position on the procedural table. A procedural timeout was performed verifying proper patient, procedure and position. Ultrasound was used to image the right upper quadrant. A spot was marked, then prepped and draped in usual sterile fashion using 2% chlorhexidine soap. Lidocaine was used for local anesthesia. Under constant ultrasound guidance, the right hepatic lobe lesion was accessed percutaneously using a 17-gauge introducer needle. The stylet was removed and subsequently total of 3 separate 18-gauge cores were obtained and passed on to the pathologist who was present in the room. Ultrasound images were saved. Postprocedural ultrasound image was saved, demonstrating no immediate complication. The needle was removed and pressure held to achieve hemostasis. A sterile dressing was placed. The procedure was ended and the patient transferred back to the preprocedural area in stable condition. Findings: 1. Successful ultrasound-guided biopsy of the right hepatic lobe lesion. 2. Samples placed on touch prep slides and in formalin for pathological evaluation, will follow. IMPRESSION Successful ultrasound guided targeted right hepatic mass biopsy. Plan: Routine site care. Biopsy results will be followed. Thank you for allowing me to participate in the care of this patient. Signed by Sy Salas MD on 07/06/2019 11:13 AM IMAGING ORDER/RESULT (07/05/2019 12:00 PM EDT) Narrative Performed At TISSUE EXAM (07/05/2019 11:44 AM EDT) Case Report Surgical Pathology Case: [id number] [place] [facility] Authorizing Provider: Sy Salas MD Collected: 07/05/2019 11:44 AM LABORATORY Ordering Location: [address] Received: 07/05/2019 12:38 PM Pathologist: Albaro Saravia MD Specimens: 1) - LIVER BIOPSY, rt lobe 2) - touch prep, rt lobe liver Clinical right lobe mass [email or web address] LABORATORY FINAL DIAGNOSIS 1. Liver, right lobe, core biopsy: Cores of benign liver tissue. [employer] Electronically -There is no evidence of a primary or metastatic neoplasm. GROUP signed by -A reticulin stain shows normal reticulin architecture. LABORATORY Albaro Saravia -Hemal trichrome stain does not suggest cirrhosis or significant liver fibrosis. MD Padma on 07/06/2019 at 3:11 PM 2. Liver, touch prep of core biopsy: Blood and scant benign hepatocytes identified. Microscopic Microscopic examination [place] [facility] Description is performed. GROUP LABORATORY Gross 1. The specimen is received in formalin labeled, with the patient's name , MRN, and rt lobe and consists of multiple threadlike cores of thapa-pink soft tissue ranging in size from 0.6 to 2.0 cm. These cores are totally submitted in cassette 1A. [facility] Description GROUP MM LABORATORY Two touch preparation smears made from the core biopsy specimen labeled with the patient name, medical records number and liver mass and Diff-Quik stained for immediate adequacy assessment. Disclaimer The automated [facility] immunohistochemistry and [facility] direct immunofluorescence LABORATORY assays use analyte specific reagents (ASR). Their performance characteristics have been validated in-house. The US Food and Drug Administration (FDA) have not reviewed these assays. The FDA has determined that such clearance or approval is not necessary. These assays are used for clinical purposes, and are not regarded as investigational or for research. The adequacy of staining is verified by appropriate positive and negative controls. Technical components are performed at the [facility] laboratory, [address] [place] [address]. Specimen Tissue - touch prep Tissue specimen (specimen) - touch prep Performing Organization Address City/State/Zipcode Phone Number [facility] [address] [facility] [place] [address] documented in this encounter Visit Diagnoses Diagnosis Liver lesion Other specified disorders of liver documented in this encounter Administered Medications Medication Order MAR Action Action Date Dose Rate Site acetaminophen (TYLENOL) tablet 325 mg 325 mg, Oral, Q4 HRS PRN, Starting Wed07/05/19 at 1241, Until Wed07/05/19 at 1728 , Mild Pain (pain scale 1-3) - PO - 1st line - if immediate effect not required and patient can tolerate PO FentaNYL (PF) (SUBLIMAZE) injection (PF) Given 07/05/2019 11:58 AM EDT 50 mcg Intravenous Push, PRN, Starting Wed07/05/19 at 1158, Until Wed07/05/19 at 1158 midazolam (VERSED) injection Given 07/05/2019 11:58 AM EDT 0.5 mg Intravenous Push, PRN, Starting 9/4/19 at 1158, Until Wed07/05/19 at 1158 normal saline IV New Bag 07/05/2019 10:17 AM EDT 80 mL/hr Intravenous, at 80 mL/hr, CONTINUOUS, Starting Wed07/05/19 at 0940, Until Wed07/05/19 at 1728 documented in this encounter Insurance Payer Benefit Plan / Subscriber ID Effective Dates Phone Address Type Group MEDICARE MEDICARE PART A xxxxxxxxxxx 2006-Presen Medicare & B t BCBS EMPIRE BCBS EMPIRE PPO xxxxxxxxxxxx 2018-Present Blue [employer]/Blue Shield Guarantor Name Account Type Relation to Date of Phone Billing Patient Address Bills,Aminah Yoly Personal/Family 1940 [address] [phone] [place], [place] (Work) [address] documented as of this encounter Advance Directives Type Date Recorded Patient Salt Maker Explanation Advance Directives 05/25/2019 12:47 PM DNR Advance Directives 05/25/2019 12:47 PM Living Will / Health Care Proxy
--- OUTSIDE RECORDS SUMMARY | 2019-07-09 10:46 | XMS REPORT | Summary of Care ---
:1940 Author Organization [facility] Address [address] [address] Care Team Providers Name Role Phone Velvet Lemon MD Primary Care Provider Reason for Visit Reason Comments Follow Up 1mth and MRI results Encounter Details Date Type Department Care Team Description 06/13/2019 Office Visit [facility] Ion Weight loss (Primary Dx); Practice MD Velvet Chronic atrial fibrillation (HCC); [address] [place] [address] [phone] Allergies Active Allergy Reactions Severity Noted Date Comments Altaryl Other 12/22/2007 Tachycardia Aspirin Other 12/07/2006 Pt states d/t HHT documented as of this encounter (statuses as of 06/13/2019) Medications Medication Sig Dispensed Refills Start Date [...] as of this encounter (statuses as of 06/13/2019) Active Problems Problem Noted Date Hyperparathyroidism 03/23/2019 [...] as of this encounter (statuses as of 06/13/2019) Social History Tobacco Use Types Packs/Day Years [...] Sign Reading Time Taken Comments Blood Pressure 136/60 06/13/2019 1:44 PM EDT Pulse 69 06/13/2019 1:44 PM EDT Temperature 36.4 06/13/2019 1:44 PM EDT C (97.6 F) Respiratory Rate - - Oxygen Saturation 96% 06/13/2019 1:44 PM EDT Inhaled Oxygen Concentration - - Weight 51.4 kg (113 lb 4.8 oz) 06/13/2019 1:44 PM EDT Height 167.6 cm (5' 6") 06/13/2019 1:44 PM EDT Body Mass Index 18.29 06/13/2019 1:44 PM EDT documented in this encounter Patient Instructions Patient InstructionsVelvet Lemon MD - 06/13/2019 1:40 PM EDT1. Follow up in 1 month 2: 01 PM EDT documented in this encounter Progress Notes Velvet Lemon MD - 06/13/2019 1:40 PM EDT Patient: Aminah Hensley Date of Service: 06/13/2019 Subjective: Aminah Hensley is a 78-y.o. female who presents for Chief Complaint Patient presents with Follow Up 1mth and MRI results Patient comes follow up weight loss, atrial fibrillation, CHF Currently under evaluation for possible liver mass Had EUS done 06/02/19: The pancreatic duct had a prominently branched endosonographic appearance in the body of the pancreas. - Pancreatic parenchymal abnormalities consisting of lobularity were noted in the entire pancreas. - There was diffuse abnormal echotexture in the left lobe of the liver and in the right lobe of the liver. This was characterized by a heterogenous appearance. - A lesion was found in the right lobe of the liver. The lesion was hyperechoic. The lesion measured 4 mm by5 mm. The lesion seen on MRI is not seen. This lesion is to far away to biopsy. - There was no sign of significant pathology in thecommon bile duct and in the gallbladder body. - No specimens collected. Had MRCP done 06/09/19 which was not read yet at the time of the visit No palpitations, SOB, peripheral edema. Improved appetite. Weight improved Past Medical History: Diagnosis Date Chronic atrial fibrillation (HCC) Dr. Mc Closed left hip fracture (HCC) Colon polyp adenoma 2002, f/u 2005 one benign polyp. Family history of colon cancer 12/07/2006 Father, Sister and Brother Hereditary hemorrhagic telangiectasia (HCC) 01/02/2007 Hypertension 01/03/2007 Iron deficiency anemia secondary to blood loss (chronic) 12/07/2006 MVP (mitral valve prolapse) with mild MR Osteoporosis declines treatment Tubular adenoma 04/2012 Outpatient Medications as of 06/13/2019 Medication Sig Dispense Refill cholecalciferol (VITAMIN D) 1000 units Oral Tab Take 1,000 Units by mouth. digoxin (LANOXIN, DIGITEK) 250 MCG Oral Tab Take 0.125 mg by mouth DAILY. ENSURE HIGH CALCIUM PO LIQD Take by mouth. Daily metoprolol succinate (TOPROL XL) 100 MG Oral TABLET SR 24 HR Take 100 mg by mouth DIRECTED. 100 mg am and pm, 50 mg mid day and 100 mg pm torsemide (DEMADEX) 20 MG Oral Tab Take 20 mg by mouth DAILY. Indications : 40 mg Mon/Wed/Wed and 20 mg Sun//Th/Sat No current facility-administered medications on file as of 06/13/2019. Allergies Allergen Reactions Antihistamine [Altaryl] Other Tachycardia Aspirin Other Pt states d/t HHT Review of Systems: All remaining review of systems was negative. Objective: BP 136/60 (BP Location: Right arm, Patient Position: Sitting) Pulse 69 Temp 97.6 F (36.4 C) Ht 5' 6" (1.676 m) Wt 113 lb 4.8 oz (51.4 kg) SpO2 96 % BMI 18.29 kg/m2 GENERAL: alert, no distress THROAT: lips, mucosa, and tongue normal: teeth and gums normal NECK: supple, symmetrical, trachea midline LUNGS: clear to auscultation bilaterally HEART: irregularly irregular rhythm EXTREMITIES: no edema. ICD-9-CM ICD-10-CM 1. Weight loss Stable 783.21 R63.4 2. Chronic atrial fibrillation (HCC) Stable 427.31 I48.2 3. Liver lesion MRCP pnd F/U with GI 573.8 K76.9 Patient Instructions 1. Follow up in 1 month Author: Velvet Lemon MD documented in this encounter Plan of Treatment Date Type Specialty Care Team Description 07/13/2019 Office Visit Family Practice Velvet Lemon MD [address] [place] [address] [phone] Health Maintenance Due Date Last Done Comments [...] Type Problems Progress Blood Pressure Blood Pressure 136/60 No Ion, < 150/90 (06/13/2019 Velvet, 1:44 PM EDT) Note: This is an individualized treatment (blood pressure) goal for Aminah Hensley: Displayed above (on the left) is your goal for blood pressure control. Your most recent blood pressure is also shown above, on the right. You should try to achieve blood pressures that are lower than your goal listed above (on the left). Weight increase vs. 18 mo CHF 0.7 (06/13/2019 1:44 PM EDT) Zee Lundberg RN min (lbs) < 5 Note: [...] the number on the left). Consume a yy-qvihh-ohbz diet Lifestyle No Zee Martinez, RN Note: This is an individualized lifestyle goal for Aminah Hensley: Please do not add additional salt to your food. Additional salt may lead to fluid retention and worsen your congestive heart failure. Take all prescribed medications as Self-management Velvet Porter MD directed Note: This is an individualized [...] ongoing basis. Check your weight daily Self-management Zee Lundberg RN Note: This is an individualized self-management goal for Aminah Hensley: Please check your weight daily. Refer to the accompanying CHF treatment goal and call your doctor immediately for further instructions on how to respond to unexpected weight gain. documented as of this encounter Results Not on filedocumented in this encounter Visit Diagnoses Diagnosis Weight loss - Primary Loss of weight Chronic atrial fibrillation (HCC) Atrial fibrillation Liver lesion Other specified disorders of liver documented in this encounter Insurance Payer Benefit Plan / Subscriber ID Effective Dates Phone Address Type Group MEDICARE MEDICARE PART A & B xxxxxxxxxxx 2006-Present Medicare UHC EMPIRBANNER-EMPIRE PLAN xxxxxxxxx 2017-Present [place] Guarantor Name Account Type Relation to Date of Phone Billing Patient Address Aminah Hensley Personal/Family 1940 [address] [phone] [place], [place] (Work) [address] documented as of this encounter Advance Directives Type Date Recorded Patient Frame Cleaner Explanation Advance Directives 05/25/2019 12:47 PM DNR Advance Directives 05/25/2019 12:47 PM Living Will / Health Care Proxy
--- OUTSIDE RECORDS SUMMARY | 2019-07-09 10:46 | XMS REPORT | Continuity of Care Document ---
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 Onset: 03/23/2014 Premature beats Gracy Mc M.D. Onset: 03/23/2014 [place] haemorrhagic telangiectasia syndrome Gracy Mc M.D. Onset: 2013 Aortic valve disorder Gracy Mc M.D. Onset: 08/23/2015 Essential hypertension Gracy Mc M.D. Onset: 08/23/2015 Carotid artery occlusion Gracy Mc M.D. Onset: 03/23/2016 Persistent atrial fibrillation Gracy Mc M.D. Onset: 11/23/2016 Chronic atrial fibrillation Gracy Mc M.D. Onset: 01/31/2018 Mitral valve disorder Gracy Mc M.D. Onset: 04/03/2019 Pulmonary hypertension due to left heart disease Gracy Mc M.D. 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 20Meq Tablets ER Boost 1 can by mouth 3Cases Amanda Almeida, 05/15/2019 Liquid every N.P. day...:::...diagno sis: r13.10, g89.4 Digoxin 1 by mouth daily 90tabs Bryan Maykel 04/16/2019 125mcg Joi Abdalla, Tablets FACC, FASNC Metoprolol Succinate take 2 tab (100 mg Unknown 04/16/2019 ER at breakfast and 50mg Tablets ER dinner ) take 1 24HR tablet (50 MG at lunch ) Ensure 1 drink in the Am Unknown every day Vitamin D 1 by mouth Unknown 1000Unit everyday Tablets Torsemide 2 tablets by mouth 120tabs Amanda Almeida, 20mg mwf and 1 tablet N.P. Tablets by mouth other days Immunizations Description No Information Available Vital Signs Date Vital Result Comment 06/13/2019 11:16am Height 68 inches 5'8" Weight 114.00 lb Heart Rate 68 /min BP Systolic 100 mmHg BP Diastolic 68 mmHg Respiratory Rate 14 /min Pain Level 0 BMI (Body Mass Index) 17.3 kg/m2 05/30/2019 8:30am Height 68 inches 5'8" Weight 115.00 lb Heart Rate 68 /min BP Systolic 110 mmHg BP Diastolic 60 mmHg Respiratory Rate 12 /min Pain Level 0 BMI (Body Mass Index) 17.5 kg/m2 Results Test Date Facility Test Result H/L Range Note Basic Metabolic 06/07/2019 [facility] Sodium 143 mmol/L Normal 135-[address] [place] [address] [phone] Potassium 3.4 mmol/L Low 3.5-5.0 Chloride 99 mmol/L Low 101-111 Co2 Carbon Dioxide 35 mmol/L High 22-32 Anion Gap 9 mmol/L Normal 2-11 Glucose 96 mg/dL Normal 70-100 Blood Urea Nitrogen 15 mg/dL Normal 6-24 Creatinine 0.69 mg/dL Normal 0.51-0.95 BUN/Creatinine Ratio 21.7 High 8-20 Calcium 9.9 mg/dL Normal 8.6-10.3 Egfr Non- 82.5 >60 Egfr 99.8 >60 1 Laboratory test 06/07/2019 [facility] B-Type 743 pg/mL High <= [address] [place] [address] Peptide BNP [phone] Digoxin 0.9 ng/ml Normal 0.8-2.0 Order 05/31/2019 [facility] Holter <pending> [address] [place] [address] [phone] Basic Metabolic 05/01/2019 [facility] Sodium 142 mmol/L Normal 135-[address] [place] [address] [phone] Potassium 4.1 mmol/L Normal 3.5-5.0 Chloride 105 mmol/L Normal 101-111 Co2 Carbon Dioxide 32 mmol/L Normal 22-32 Anion Gap 5 mmol/L Normal 2-11 Glucose 115 mg/dL High 70-100 Blood Urea Nitrogen 14 mg/dL Normal 6-24 Creatinine 0.56 mg/dL Normal 0.51-0.95 BUN/Creatinine Ratio 25.0 High 8-20 Calcium 10.4 mg/dL High 8.6-10.3 Egfr Non- 105.0 >60 Egfr 127.0 >60 2 Laboratory test 04/26/2019 [facility] B-Type 996 pg/mL High <= [address] [place] [address] Peptide BNP [phone] 1 Because ethnic data is not always readily [...] 15-29 5 Kidney failure <15 (or dialysis) 2 Because ethnic data is not always readily [...] (or dialysis) Procedures Date Code Description Status 06/07/2019 00117 Holter Monitor Review (24 hr)dr review & interp only Completed 05/31/2019 00305 ECG Monitor/Recording W/Visual Superimposition Scanning Completed 05/30/2019 27301 Short Arm Cast Application Completed 05/15/2019 03409 EKG Tracing & Interpretation Completed 05/08/2019 96556 Short Arm Cast Application Completed 04/25/2019 13878 EKG Tracing & Interpretation Completed 04/17/2019 69596 Treadmill Interp/Report Only Completed 04/17/2019 15330 Stress Test Supervsn W/Out I/R Completed 04/16/2019 68712 ECHO Transthorasic Realtime 2D W Doppler & Color Flow Hosp Completed 04/03/2019 25046 EKG Tracing & Interpretation Completed 03/29/2019 38519 ECHO Transthoracic, Real-Time 2D With Doppler And Color Completed Flow 03/29/2019 32136 ECHO Transthoracic, Real-Time 2D With Doppler And Color Completed Flow Medical Devices Description No Information Available Encounters Type Date Location Provider Dx Diagnosis Office Visit 05/15/2019 [facility] Amanda Almeida, I50.9 Heart failure, 1:30p N.P. unspecified I48.2 Chronic atrial fibrillation R06.02 Shortness of breath J91.8 Pleural effusion in other conditions classified elsewhere I50.32 Chronic diastolic (congestive) heart failure Office Visit 05/08/2019 [facility] S52.592A Oth fractures of 10:26a Services Of TRISHA Kim lower end of left radius, init for clos fx Office Visit 05/08/2019 [facility] Gisela I50.9 Heart failure, 9:20a Assoc,luis Mcmahon MD unspecified Hospitalists S52.502A Unsp fracture of the lower end of left radius, init I48.91 Unspecified atrial fibrillation W01.10xA Fall same lev from slip/trip w strike agnst unsp obj, init Office Visit 05/07/2019 9:19a [facility] Gisela Mcmahon, R06.02 Shortness of Assocluis MD breath Hospitalists S52.502A Unsp fracture of the lower end of left radius, init I50.9 Heart failure, unspecified I48.91 Unspecified atrial fibrillation [facility], 9:18a Assocluis NP unspecified Hospitalists organism J91.8 Pleural effusion in other conditions classified elsewhere E83.52 Hypercalcemia I50.9 Heart failure, unspecified W01.10xA Fall same lev from slip/trip w strike agnst unsp obj, init Office Visit 04/25/2019 3:30p [facility] Nurse Visit I48.1 Persistent atrial Of [facility] IC fibrillation I10 Essential (primary) hypertension Office Visit 04/17/2019 [facility] Nils Perez I48.91 Unspecified atrial 3:08p Of [place] Ace M.D. 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 Office Visit 04/16/2019 [facility] Harjeet I48.91 Unspecified atrial 8:40a Assocluis PA fibrillation Hospitalists R74.8 Abnormal levels of other serum enzymes I50.9 Heart failure, unspecified Office Visit 04/14/2019 11:48a [facility] Bryan Brar I21.4 Non-St elevation Of [place] Abdalla M.D., (Nstemi) FAC, FASNC myocardial infarction I48.2 Chronic atrial fibrillation 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 Office Visit 04/14/2019 [facility] I48.91 Unspecified atrial 8:40a Assawilda,TRISHA Hi fibrillation Hospitalists I50.33 Acute on chronic diastolic (congestive) heart failure Office Visit 04/03/2019 4:00p [facility] Gracy Mc, I48.2 Chronic atrial Of Clifton Tamez fibrillation I35.0 Nonrheumatic aortic (valve) stenosis I34.0 Nonrheumatic mitral (valve) insufficiency I34.2 Nonrheumatic mitral (valve) stenosis R22.1 Localized swelling, mass and lump, neck I27.22 Pulmonary hypertension due to left heart disease Assessments Date Code Description Provider 06/13/2019 S52.592D Other fractures of lower end of Azar Pollard MD left radius, subsequent encounter for closed fracture with routine healing 06/07/2019 I48.91 Unspecified atrial fibrillation Gracy Mc M.D. 05/31/2019 I48.91 Unspecified atrial fibrillation Nurse Visit IC 05/30/2019 S52.592A Other fractures of lower end of Azar Pollard MD left radius, initial encounter for closed fracture 05/15/2019 I48.91 Unspecified atrial fibrillation Gracy Mc M.D. 05/15/2019 I50.9 Heart failure, unspecified Amanda S. Juan Pablo, N.P. 05/15/2019 I48.2 Chronic atrial fibrillation Amanda S. Foster, N.P. 05/15/2019 R06.02 Shortness of breath Amanda S. Foster, N.P. 05/15/2019 J91.8 Pleural effusion in other Amanda S. Foster, N.P. conditions classified elsewhere 05/15/2019 I50.32 Chronic diastolic (congestive) Amanda S. Foster, N.P. heart failure 05/08/2019 S52.592A Other fractures of lower end of TRISHA Grace left radius, initial encounter for closed fracture 05/08/2019 I50.9 Heart failure, unspecified Gisela Mcmahon MD 05/08/2019 S52.502A Unsp fracture of the lower end of Gisela Mcmahon MD left radius, init 05/08/2019 I48.91 Unspecified atrial fibrillation Gisela Mcmahon MD 05/08/2019 W01.10xA Fall same lev from slip/trip w Gisela Mcmahon MD strike agnst unsp obj, init 05/07/2019 R06.02 Shortness of breath Gisela Mcmahon MD 05/07/2019 S52.502A Unsp fracture of the lower end of Gisela Mcmahon MD left radius, init 05/07/2019 I50.9 Heart failure, unspecified Gisela Mcmahon MD 05/07/2019 I48.91 Unspecified atrial fibrillation Gisela Mcmahon MD 05/06/2019 J18.1 Lobar pneumonia, unspecified Roxanna Link [employer] organism 05/06/2019 J91.8 Pleural effusion in other [facility], [employer] conditions classified elsewhere 05/06/2019 E83.52 Hypercalcemia Roxanna Link, [employer] 05/06/2019 I50.9 Heart failure, unspecified Roxanna Link, [employer] 05/06/2019 W01.10xA Fall same lev from slip/trip w Roxanna Link NP strike agnst unsp obj, init 04/25/2019 I48.1 Persistent atrial fibrillation Nurse Visit IC 04/25/2019 I10 Essential (primary) hypertension Nurse Visit IC 04/17/2019 I48.91 Unspecified atrial fibrillation Nils Ace M.D. 04/17/2019 I50.33 Acute on chronic diastolic TRISHA Vargas (congestive) heart failure 04/17/2019 I48.91 Unspecified atrial fibrillation TRISHA Vargas 04/17/2019 R06.02 Shortness of breath Nils Ace M.D. 04/17/2019 I78.0 Hereditary hemorrhagic TRISHA Vargas telangiectasia 04/16/2019 I48.91 Unspecified atrial fibrillation TRISHA Vargas 04/16/2019 R07.9 Chest pain, unspecified Bryan Abdalla M.D., [facility], [facility] 04/16/2019 R74.8 Abnormal levels of other serum TRISHA Vargas enzymes 04/16/2019 I50.9 Heart failure, unspecified TRISHA Vargas 04/15/2019 I48.91 Unspecified atrial fibrillation TRISHA Vargas 04/15/2019 R74.8 Abnormal levels of other serum TRISHA Vargas enzymes 04/15/2019 I50.9 Heart failure, unspecified TRISHA Vargas 04/14/2019 I48.91 Unspecified atrial fibrillation TRISHA Vargas 04/14/2019 I21.4 Non-St elevation (Nstemi) Bryan Abdalla M.D., [facility], myocardial infarction [facility] 04/14/2019 I50.33 Acute on chronic diastolic TRISHA Vargas (congestive) heart failure 04/14/2019 I48.2 Chronic atrial fibrillation Bryan Abdalla M.D., [facility], [facility] 04/14/2019 I78.0 Hereditary hemorrhagic Bryan Abdalla M.D., [facility], telangiectasia [facility] 04/03/2019 I48.2 Chronic atrial fibrillation Gracy Mc M.D. 04/03/2019 I35.0 Nonrheumatic aortic (valve) Gracy Mc M.D. stenosis 04/03/2019 I34.0 Nonrheumatic mitral (valve) Gracy Mc M.D. insufficiency 04/03/2019 I34.2 Nonrheumatic mitral (valve) Gracy Mc M.D. stenosis 04/03/2019 R22.1 Localized swelling, mass and lump, Gracy Mc M.D. neck 04/03/2019 I27.22 Pulmonary hypertension due to left Gracy Mc M.D. heart disease 03/29/2019 I48.2 Chronic atrial fibrillation Gracy Mc M.D. 03/29/2019 I48.2 Chronic atrial fibrillation Traveling ECHO 1 03/29/2019 I35.2 Nonrheumatic aortic (valve) Traveling ECHO 1 stenosis with insufficiency Plan of Treatment Future Appointment(s):07/11/2019 2:00 pm - Amanda Almeida, N.P. at [facility]06/13/2019 - Azar Pollard, MDS52.592D Other fractures of lower end of left radius, subsequent encounter for closed fracture with routine healingFollow up:Follow up: As needed Functional Status Description No Information Available Mental Status Description No Information Available Referrals Description No Information Available
[2019-07-09 10:54] VITALS: BP 146/77
[2019-07-09 11:00] LABS: ABS Basophils 0.1 10^3/ul (0-0.2); ABS Eosinophils 0.1 10^3/ul (0-0.6); ABS Lymphocytes 1.4 10^3/ul (1.0-4.8); ABS Monocytes 1.2 10^3/ul (0-0.8); Eosinophil % 0.9 %; Hematocrit 38 % (35-47); Hemoglobin 12.1 g/dL (12.0-16.0); Lymphocyte % 15.9 %; Mean Corpuscular HGB Conc 32 g/dL (31-36); Mean Corpuscular Hemoglobin 26 pg (27-31); Mean Corpuscular Volume 81 fL (80-97); Mean Platelet Volume 9.1 fL (7.4-10.4); Nucleated Red Blood Cells % 0.1; Platelet Count 145 10^3/uL (150-450); Red Blood Count 4.67 10^6 /uL (3.70-4.87); Red Cell Distribution Width 20 % (10-15); White Blood Count 8.8 10^3/uL (3.5-10.8)
[2019-07-09 11:13] LABS: Troponin I 0.02 ng/mL (<0.04)
[2019-07-09 11:51] LABS: TSH (Thyroid Stimulating Horm) 1.8 mcIU/mL (0.34-5.60)
[2019-07-09 11:58] LABS: Albumin 3.3 g/dL (3.2-5.2); Magnesium 2.1 mg/dL (1.9-2.7)
[2019-07-09 12:02] LABS: Calcium 10.4 mg/dL (8.6-10.3); Total Bilirubin 1.5 mg/dL (0.2-1.0)
[2019-07-09 12:04] LABS: Albumin/Globulin Ratio 0.9 (1-3); Globulin 3.8 g/dL (2-4); Total Protein 7.1 g/dL (6.4-8.9)
[2019-07-09 12:06] LABS: BUN/Creatinine Ratio 26.6 (8-20); EGFR African American 108.9 (>60)
== END 2019-07-09 12:56 | disposition home or self-care (01) ==
LOC: ED 10:16
DX: R25.1 Tremor, unspecified (principal); I48.91 Unspecified atrial fibrillation; R10.9 Unspecified abdominal pain; R11.2 Nausea with vomiting, unspecified; I25.10 Atherosclerotic heart disease of native coronary artery without angina pectoris; I11.0 Hypertensive heart disease with heart failure; I50.9 Heart failure, unspecified; I05.9 Rheumatic mitral valve disease, unspecified; Z88.8 Allergy status to other drugs, medicaments and biological substances
CPT/HCPCS: 36415; 70450; 80053; 82550; 83735; 84443; 84484; 85025; 93005; 99283

== ENCOUNTER → 2019-11-24 11:06 | Day surgery (SDC) | payer MEDICARE, BC ==
[~2019-11-24 11:06] MED LIST changes: +Acetaminophen IV 1GM/100ML * 10 MG/ML VIAL IVPB ONE; +Bacitracin OINTMENT* 0.5% 0.5 oz TUBE ONE; +Buffered Lidocaine 1% SYRIN* 1 ML/SYRINGE INTRADERM ONE; +Dexamethasone IV* 4 MG/ML 1 ML (4 MG) ONE; +Digoxin TAB* 0.125 MG PO ONE; +Famotidine IV* 10 MG/ML 2 ML (20 mg) IV ONE; +KETAMINE HCL* 50 MG/ML 10 ML VIAL ONE; +Lactated Ringers 1000 ML Bag* 1,000 ML IV SCH; +Lidocaine 1% w EPI 1:100,000* MDV 20 ML VIAL ONE; +Lidocaine 2% PF * 5 ML VIAL ONE; +Lidocaine 4% TOPICAL* 50 ML TOP.SOLN ONE; +Metoprolol Succinate XL TAB* 100 MG PO ONE; +Midazolam* 1 MG/ML 5 ML VIAL (5 MG) ONE; -NS 0.9% 1000 ML* 1,000 ML IV ONE; +Naloxone* 0.4 MG/ML 1 ML VIAL IV PRN; +Naloxone* 0.4 MG/ML 10 ML VIAL ONE; +Ondansetron INJ* 2 MG/ML VIAL IV PRN; +Ondansetron INJ* 2 MG/ML VIAL ONE; +Oxymetazoline 0.05% NASAL SPR* 15 ML BTL ONE; +Phenylephrine 10 MG/ML VIAL* 1 ML VIAL ONE; +Propofol* 10 MG/ML 20 ML BTL ONE; +fentaNYL* 50 MCG/ML 2 ML VIAL (100 MCG VIAL) IV PRN; +fentaNYL* 50 MCG/ML 2 ML VIAL (100 MCG VIAL) ONE
[2019-11-24 19:01] VITALS: BP 138/51
--- NOTE | 2019-11-25 01:38 | OP ---
DATE OF OPERATION: 11/24/19 - [facility] DATE OF : 42 SURGEON: Cuauhtemoc Dasilva MD EXTRUSION MACHINE OPERATOR: None. ANESTHESIA: General. 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 OPERATIVE PROCEDURE: Bilateral endoscopic control of epistaxis. ESTIMATED BLOOD LOSS: Approximately 50 cc. INDICATIONS: This is a 79-year-old woman with longstanding HHT and problems with recurrent epistaxis. It has been about a [id number] since we last brought her to the operating room for endoscopic control of epistaxis, but she has started to have more significant bleeds with increasing frequency. The decision was made to bring the patient to the operating room for endoscopic control. DESCRIPTION OF PROCEDURE: On 11/24/19, the patient was brought to the operating room. General anesthesia was induced and an oral endotracheal tube was placed. The patient was draped. A time-out was performed. Old crusted blood was debrided from the nasal cavities. Then, Afrin and lidocaine soaked pledgets were placed into each nasal cavity. Once there was adequate time for topicalization and vasoconstriction, a 0 degree endoscope was used to perform nasal endoscopy. The patient has essentially a total septectomy and so really has one open cavity with just anterior and posterior septal strut. It appeared that there were multiple telangiectasias throughout both nasal cavities, although the worst of these were high in the right nasal cavity, one between the lateral nasal wall and superior portion of the inferior turbinate was particularly large and then another in the ethmoid bed on the right between the middle turbinate and some of the ethmoid air cells. These were all controlled with a combination of bipolar and monopolar cautery. Once all obvious telangiectasias were cauterized, the areas that had been cauterized were coated in bacitracin and the patient was then returned to the care of the anesthesiologist. [id number]/[facility] #: [id number] [facility]
== END | disposition home or self-care (01) ==
LOC: OR 11:06
PROVIDERS: ATTEND Otolaryngology
DX: I78.0 Hereditary hemorrhagic telangiectasia (principal); I48.91 Unspecified atrial fibrillation; I10 Essential (primary) hypertension; I27.20 Pulmonary hypertension, unspecified; I65.29 Occlusion and stenosis of unspecified carotid artery; I08.0 Rheumatic disorders of both mitral and aortic valves
CPT/HCPCS: A9270-GY; J1100; J2250; J2310; J2405; J2704; J3010

== ENCOUNTER 2019-11-28 17:47 | Inpatient (IN) | payer MEDICARE, BC ==
[2019-11-28] MEDS ORDERED: NS 0.9% 1000 ML** 1,000 ML IV ONE ×2 (18:02→18:11)
--- OUTSIDE RECORDS SUMMARY | 2019-11-28 18:02 | XMS REPORT | Continuity of Care Document ---
:1940 External Reference #:[id number] Author Name Chris Curran N.P. 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 Tablets Metoprolol Succinate take 2 tab (100 mg Unknown 04/16/2019 ER at breakfast and 50mg Tablets ER dinner ) take 1 24HR tablet (50 MG at lunch ) Ensure 1 drink in the Am Unknown every day Vitamin D 1 by mouth Unknown 1000Unit everyday Tablets Torsemide 1 tab by mouth 120tabs Amanda Almeida, 20mg daily N.P. Tablets Immunizations Description No Information Available Vital Signs Date Vital Result Comment 11/27/2019 1:22pm Height 68 inches 5'8" Weight 110.00 lb Heart Rate 63 /min BP Systolic 118 mmHg BP Diastolic 58 mmHg BMI (Body Mass Index) 16.7 kg/m2 08/15/2019 10:58am Height 68 inches 5'8" Weight 110.00 lb Heart Rate 85 /min BP Systolic 108 mmHg BP Diastolic 78 mmHg BMI (Body Mass Index) 16.7 kg/m2 Results Test Acquired Date Facility Test Result H/L Range Note Basic Metabolic 07/07/2019 [facility] Sodium 141 mmol/L Normal 135-[address] [place] [address] [phone] Potassium 4.1 mmol/L Normal 3.5-5.0 Chloride 105 mmol/L Normal 101-111 Co2 Carbon Dioxide 33 mmol/L High 22-32 Anion Gap 3 mmol/L Normal 2-11 Glucose 108 mg/dL High 70-100 Blood Urea Nitrogen 17 mg/dL Normal 6-24 Creatinine 0.65 mg/dL Normal 0.51-0.95 BUN/Creatinine Ratio 26.2 High 8-20 Calcium 10.6 mg/dL High 8.6-10.3 Egfr Non- 88.4 >60 Egfr 106.9 >60 1 Basic Metabolic 06/07/2019 [facility] Sodium 143 mmol/L Normal 135-[address] [place] [address] [phone] Potassium 3.4 mmol/L Low 3.5-5.0 Chloride 99 mmol/L Low 101-111 Co2 Carbon Dioxide 35 mmol/L High 22-32 Anion Gap 9 mmol/L Normal 2-11 Glucose 96 mg/dL Normal 70-100 Blood Urea Nitrogen 15 mg/dL Normal 6-24 Creatinine 0.69 mg/dL Normal 0.51-0.95 BUN/Creatinine Ratio 21.7 High 8-20 Calcium 9.9 mg/dL Normal 8.6-10.3 Egfr Non- 82.5 >60 Egfr 99.8 >60 2 Laboratory test 06/07/2019 [facility] B-Type 743 pg/mL High <= [address] [place] [address] Peptide BNP [phone] Digoxin 0.9 ng/ml Normal 0.8-2.0 Order 05/31/2019 [facility] Holter Monitor <pending> [address] [place] [address] [phone] 1 Because ethnic data is not always [...] (or dialysis) Procedures Date Code Description Status 11/21/2019 50232 ECHO Transthoracic, Real-Time 2D With Doppler And Color Completed Flow 08/04/2019 28102 EEG Recording Awake & Drowsy Completed 06/07/2019 24955 Holter Monitor Review (24 hr)dr xander & interp only Completed 05/31/2019 20250 ECG Monitor/Recording W/Visual Superimposition Scanning Completed 05/30/2019 85102 Short Arm Cast Application Completed Medical Devices Description No Information Available Encounters Type Date Location Provider Dx Diagnosis Office Visit 08/15/2019 [facility] Chris I78.0 Hereditary 11:00a Services Of [place] Curran N.P. hemorrhagic telangiectasia R25.1 Tremor, unspecified Office 07/12/2019 [facility] Jones I78.0 Hereditary Visit 10:00a Clinic Joi Hernández hemorrhagic telangiectasia R56.9 Unspecified convulsions R25.8 Other abnormal involuntary movements Office Visit 07/11/2019 2:00p [facility] Amanda S. 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 11/27/2019 R25.1 Tremor, unspecified Chris Curran, N.P. 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 08/15/2019 R25.1 Tremor, unspecified Chris Curran, N.P. 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 07/12/2019 R56.9 Unspecified convulsions Jones Hernández M.D. 07/12/2019 R25.8 Other abnormal involuntary movements Jones Hernández M.D. 07/11/2019 I48.2 Chronic atrial fibrillation Amanda Almeida, N.P. 07/11/2019 I50.32 Chronic diastolic (congestive) heart Amanda Almeida, N.P. 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 06/13/2019 S52.592D Other fractures of lower end of left MD [facility], subsequent encounter for closed fracture with routine healing 06/07/2019 I48.91 Unspecified atrial fibrillation Gracy Mc M.D. 05/31/2019 I48.91 Unspecified atrial fibrillation Nurse Visit IC 05/30/2019 S52.592A Other fractures of lower end of left MD [facility], initial encounter for closed fracture Plan of Treatment Future Appointment(s):04/12/2020 2:45 pm - Jones Hernández M.D. at [facility]12/14/2019 3:40 pm - Gracy Mc M.D. at [facility]11/27/2019 - Chris Curran, N.P.I78.0 Hereditary hemorrhagic uierizcvdsickjZ01.1 Tremor, unspecifiedFollow up:3 months Functional Status Description No Information Available Mental Status Description No Information Available Referrals Description No Information Available
--- OUTSIDE RECORDS SUMMARY | 2019-11-28 18:02 | XMS REPORT | Summary of Care ---
:1940 Author Organization [facility] Address [address] [address] Care Team Providers Name Role Phone Velvet Lemon Primary Care Provider Reason for Visit Reason Comments Follow Up rapid weight loss, and claificationon report from DR johnson Encounter Details Date Type Department Care Team Description 11/03/2019 Office Visit [facility], Weight loss (Primary Dx); Practice MD Velvet Hypercalcemia [address] [place] [address] [place] [address] [phone] Allergies Active Allergy Reactions Severity Noted Date Comments Altaryl Other 12/22/2007 Tachycardia Aspirin Other 12/07/2006 Pt states d/t HHT documented as of this encounter (statuses as of 11/03/2019) Medications Medication Sig Dispensed Refills Start Date End Date Status ENSURE HIGH CALCIUM PO Take by mouth. 0 Active LIQD Daily cholecalciferol (VITAMIN Take 1,000 0 Active D) 1000 units Oral Tab Units by mouth. digoxin (LANOXIN, Take 0.125 mg 0 Active DIGITEK) 250 MCG Oral Tab by mouth DAILY. torsemide (DEMADEX) 20 MG Take 20 mg by 0 Active Oral Tab mouth DAILY. metoprolol succinate Take 100 mg by 0 Active (TOPROL XL) 100 MG Oral mouth TABLET SR 24 HR DIRECTED. 100 mg am and pm, 50 mg mid day and 100 mg pm potassium chloride Take 20 mEq by 0 Active (KLOR-CON) 20 MEQ Oral mouth TWICE Tab CR DAILY. documented as of this encounter (statuses as of 11/03/2019) Active Problems Problem Noted Date Hyperparathyroidism 03/23/2019 [...] as of this encounter (statuses as of 11/03/2019) Social History Tobacco Use Types Packs/Day Years [...] Sign Reading Time Taken Comments Blood Pressure 120/60 11/03/2019 1:07 PM EST Pulse 57 11/03/2019 1:07 PM EST Temperature 36.1 11/03/2019 1:07 PM EST C (96.9 F) Respiratory Rate - - Oxygen Saturation 97% 11/03/2019 1:07 PM EST Inhaled Oxygen Concentration - - Weight 51 kg (112 lb 8 oz) 11/03/2019 1:07 PM EST Height - - Body Mass Index 17.11 07/13/2019 5:16 PM EDT documented in this encounter Patient Instructions Patient InstructionsVelvet Lemon MD - 11/03/2019 1:00 PM EST1. Please DW Dr. Johnson colonoscopy 2. 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 The lesion seen on transesophageal echo is not identified. Past Medical History: Diagnosis Date Chronic atrial fibrillation Dr. Mc Closed left hip fracture (HCC) Colon polyp adenoma 2002, f/u 2005 one benign polyp. 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 torsemide (DEMADEX) 20 MG Oral Tab Take 20 mg by mouth DAILY. No current facility-administered medications on file as of 11/03/2019. BP 120/60 (BP Location: Left arm, Patient Position: Sitting) | Pulse 57 | Temp 96.9 F (36.1 C) | Wt 112 lb 8 oz (51 kg) | SpO2 97% | BMI 17.11 kg/m General appearance: alert, fragile, anxious Chest: clear to auscultation, no wheezes, rales or rhonchi, symmetric air entry. CVS exam: irregularly irregular rhythm. LFT's - normal, BMP - hypercalcemia Component Latest Ref Rng & Units 09/13/2019 09/13/2019 12:20 PM 12:20 PM Sodium 134 - 145 mmol/L 142 Potassium 3.5 - 5.1 mmol/L 4.1 Chloride 98 - 107 mmol/L 101 CO2 22 - 30 mmol/L 33 (H) Glucose (Lab) 70 - 99 mg/dl 102 (H) Creatinine 0.7 - 1.2 mg/dl 0.6 (L) BUN 7 - 17 mg/dl 15 Calcium 8.3 - 10.1 mg/dl 10.6 (H) Albumin 3.5 - 5.0 g/dl 3.6 3.6 Phosphorus 2.5 - 4.5 MG/DL 3.2 eGFR See Interpretation Below ml/min/1.73ml Sq >60 BUN/Creatinine Ratio 6 - 22 RATIO 25 (H) Anion Gap 3 - 11 mmol/L 8 Protein,Total 6.3 - 8.2 g/dl 7.9 Total Bilirubin 0.0 - 1.1 MG/DL 0.9 Direct Bilirubin 0.0 - 0.3 MG/DL 0.0 AST 15 - 46 U/L 38 ALT 9 - 52 U/L 18 ALKALINE PHOSPHATASE 40 - 150 U/L 90 A/G Ratio 0.8 - 2.0 ratio 0.8 Patient advised on tests results ICD-9-CM ICD-10-CM 1. Weight loss Stabilized 783.21 R63.4 2. Hypercalcemia Hyperparathyroidism Had DEXA done 08/11/18 showing Osteoporosis Was advised on treatment at the time Didn't want to take Fosamax due to a possibility of GI bleeding Counseled about Reclast 275.42 E83.52 COMPREHENSIVE METABOLIC PANEL Patient Instructions 1. Please DW Dr. Johnson colonoscopy 2. Follow up in 3 months and as needed Author: Velvet Lemon MD 11/03/2019 13:42 documented in this encounter Plan of Treatment Date Type Specialty Care Team Description 12/12/2019 Office Visit Family Practice Velvet Lemon MD [address] [place] [address] [phone] 02/02/2020 Office Visit Family Practice Velvet Lemon MD [address] [place] [address] [phone] Name Type Priority Associated Diagnoses Date/Time COMPREHENSIVE METABOLIC Lab Routine Hypercalcemia 11/03/2019 1:44 PM EST PANEL Health Maintenance Due Date Last Done Comments Colonoscopy 04/10/2018 04/10/2015, 04/26/2012 (Previously completed), 04/30/2009, Additional history exists DTaP/Tdap/Td Vaccines (1 - 01/28/2020 Postponed from Tdap) 1952 (Patient refused) PNEUMOCOCCAL 65+YRS (1 of 2 03/07/2020 Postponed from - PCV13) 2006 (Patient refused) DEPRESSION SCREENING 03/31/2020 03/31/2019 FALL RISK ASSESSMENT 03/31/2020 03/31/2019, 03/31/2019 MEDICARE ANNUAL WELLNESS 03/31/2020 03/31/2019, 03/09/2018, VISIT 02/20/2014, Additional history exists ZOSTER IMMUNIZATION SERIES 11/03/2020 Postponed from (1 of 2) 1991 (Vaccine not available) OSTEOPOROSIS SCREENING 02/15/2023 02/15/2013 (Declined) HEPATITIS A IMMUNIZATION Aged Out No longer eligible SERIES based on patient's age to complete this topic HPV IMMUNIZATION SERIES Aged Out No longer eligible based on patient's age to complete this topic MENINGOCOCCAL VACCINE IMM Aged Out No longer eligible based on patient's age to complete this topic documented as of this encounter Goals Goal Patient Goal Associated Recent Patient-Stated? Author Type Problems Progress Blood Pressure Blood Pressure 120/60 No Ion, < 150/90 (11/03/2019 Velvet, 1:07 PM EST) Note: This is an individualized treatment (blood pressure) goal for Aminah Hensley: Displayed above (on the left) is your goal for blood pressure control. Your most recent blood pressure is also shown above, on the right. You should try to achieve blood pressures that are lower than your goal listed above (on the left). Weight increase vs. 18 mo CHF 1.5 (11/03/2019 1:07 PM EST) No Zee Martinez RN min (lbs) < 5 Note: This [...] the number on the left). Consume a [id number] diet Lifestyle No Zee Martinez RN Note: This is an individualized lifestyle [...] Check your weight daily Self-management No Zee Martinez, KIM Note: This is an individualized self-management goal for Aminah Hensley: Please check your weight daily. Refer to the accompanying CHF treatment goal and call your doctor immediately for further instructions on how to respond to unexpected weight gain. documented as of this encounter Results Not on filedocumented in this encounter Visit Diagnoses Diagnosis Hypercalcemia Weight loss Loss of weight documented in this encounter Insurance Payer Benefit Plan / Subscriber ID Effective Dates Phone Address Type Group MEDICARE MEDICARE PART A & B xxxxxxxxxxx 2006-Present Medicare UHC EMPIRE UHC-EMPIRE PLAN xxxxxxxxx 2017-Present [place] Guarantor Name Account Type Relation to Date of Phone Billing Patient Address Aminah Hensley Personal/Family 1940 [address] [phone] [place], [place] ([place]) [address] documented as of this encounter Advance Directives Type Date Recorded 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
--- NOTE | 2019-11-28 18:07 | ED ---
Complex/Multi-Sys Presentation - HPI Summary HPI Summary: 79 year old F arriving via private car with family members complains of fatigue , lethargic, weakness, decreased appetite since yesterday 11/27/2019 PM. Patient had outpatient nasal cauterization done Wednesday11/24/[address] Dasilva per . Patient was doing well after the procedure until yesterday 11/27/2019 PM when she developed fatigue, lethargic, weakness, decreased appetite per . No chest pain, shortness of breath, nausea/vomiting, abdominal pain, pain or burning with urination, bloody stools. Symptoms aggravated by nothing. Symptoms alleviated by nothing. Medications reviewed. Allergies noted. Hx hypertension. Hx CHF. Hx atrial fibrillation. Not on anticoagulants. No hx DT or PE. No hx thyroid disease. Family member states patient is seeing neurology for possible Parkinson's. - History Of Current Complaint Chief Complaint: EDWeakness Time Seen by Provider: 11/28/19 17:58 Hx Obtained From: Patient, Family/Technical Healthcare Consultant - Onset/Duration: Lasting Days - 1, Still Present Timing: Constant Severity Currently: None Aggravating Factor(s): Nothing Alleviating Factor(s): Nothing Associated Signs And Symptoms: Positive: Other - NEG: chest pain, shortness of breath, nausea/vomiting, abdominal pain, pain or burning with urination, bloody stools - Allergies/Home Medications Allergies/Adverse Reactions: Allergies Allergy/AdvReac Type Severity Reaction Status Date / Time pepper (genus Capsicum) AdvReac Sneezing Verified 11/24/19 11:34 all antihistamines AdvReac See Comment Uncoded 11/28/19 20:49 all blood thinners AdvReac See Comment Uncoded 11/28/19 20:49 Home Medications: Home Medications Cholecalciferol TAB* [Vitamin D TAB*] 1,000 unit PO DAILY 11/28/19 [History Confirmed 11/28/19] Metoprolol Succinate XL TAB* [Toprol XL TAB*] 100 mg PO BID 11/28/19 [History Confirmed 11/28/19] Potassium Chloride [Klor-Con M20] 20 meq PO BID 11/28/19 [History Confirmed ] PMH/Surg Hx/FS Hx/Imm Hx Endocrine/Hematology History: Reports: Other Endocrine/Hematological Disorders - epistaxis (HHT), Osler Telangiectasia Denies: Hx Anticoagulant Therapy, Hx Diabetes, Hx Sickle Cell Disease Cardiovascular History: Reports: Hx Atrial Fibrillation, Hx Congestive Heart Failure, Hx Coronary Artery Disease, Hx Hypercholesterolemia, Hx Hypertension - ON MEDS PT STATES CONTROLLED, Other Cardiovascular Problems/Disorders - TEST ANALYST-DR. GONZALEZ-TO SEE HER 11/22/19 Denies: Hx Pacemaker/ICD Respiratory History: Reports: Other Respiratory Problems/Disorders - HX OF EPISTAXIS Denies: Hx Asthma, Hx Chronic Obstructive Pulmonary Disease (COPD) GI History: Denies: Hx Cirrhosis, Other GI Disorders History: Denies: Hx Renal Disease, Other Problems/Disorders Musculoskeletal History: Reports: Hx Arthritis Denies: Hx Osteoporosis, Other Musculoskeletal History Sensory History: Reports: Hx Cataracts - bilat surgery, Hx Hearing Aid - bilateral, Hx Hearing Problem Denies: Hx Contacts or Glasses Opthamlomology History: Reports: Hx Cataracts - bilat surgery Denies: Hx Contacts or Glasses Neurological History: Denies: Hx Headaches, Hx Seizures, Hx Transient Ischemic Attacks (TIA), Other Neuro Impairments/Disorders Psychiatric History: Denies: Hx Anxiety, Hx Depression, Hx Panic Disorder - Cancer History Hx Chemotherapy: No - Surgical History Surgery Procedure, Year, and Place: SEVERAL NOSE SURGERIES FOR EPISTAXIS, [facility] + . PARTIAL HYSTERECTOMY IN [place]ARLY , [place]. left Hip Fx with repair . bilat cataract surgery with IOL Hx Anesthesia Reactions: No Infectious Disease History: No Infectious Disease History: Denies: Traveled Outside the [place] in Last 30 Days - Family History Known Family History: Negative: Hypertension, Diabetes - Social History Alcohol Use: Daily Alcohol Amount: 1 GLASS WINE/NIGHT Hx Substance Use: No Substance Use Type: Reports: None Hx Tobacco Use: No Smoking Status (MU): Never Smoked Tobacco Have You Smoked in the Last Year: No Review of Systems Positive: Fatigue, Other - lethargy Negative: Chest Pain Negative: Shortness Of Breath Gastrointestinal: Negative - bloody stools Positive: Other - decreased appetite. Negative: Vomiting, Nausea Negative: burning, pain Positive: Weakness All Other Systems Reviewed And Are Negative: Yes Physical Exam - Summary Physical Exam Summary: Constitutional: Well-developed, Well-nourished, Alert. (-) Distressed. Appears fatigued. Skin: Warm, Dry. Pale/ashen. HENT: Normocephalic; Atraumatic Eyes: Conjunctiva normal Neck: Musculoskeletal ROM normal neck. (-) JVD, (-) Stridor, (-) Tracheal deviation Cardio: Rhythm irregular, rate normal, Heart sounds normal; Intact distal pulses ; The pedal pulses are 2+ and symmetric. Radial pulses are 2+ and symmetric. Murmur noted Pulmonary/Chest wall: Effort normal. (-) Respiratory distress, (-) Wheezes, (-) Rales Abd: Soft, (-) tenderness, (-) Distension, (-) Guarding, (-) Rebound Musculoskeletal: (-) Edema Lymph: (-) Cervical adenopathy Neuro: Alert, Oriented x3. No focal deficits. Psych: Mood and affect Normal Triage Information Reviewed: Yes Vital Signs On Initial Exam: Initial Vitals Temp Pulse Resp BP Pulse Ox 97.4 F 93 18 133/68 95 11/28/19 17:50 11/28/19 17:50 11/28/19 17:50 11/28/19 17:50 11/28/19 17:50 Vital Signs Reviewed: Yes Procedures - Sedation Patient Received Moderate/Deep Sedation with Procedure: No Diagnostics - Vital Signs Vital Signs Temp Pulse Resp BP Pulse Ox 11/28/19 17:50 97.4 F 93 18 133/68 95 - Laboratory Result Diagrams: 11/30/19 05:02 11/30/19 05:02 Lab Statement: Any lab studies that have been ordered have been reviewed, and results considered in the medical decision making process. - Radiology CXR Radiology Interpretation Completed By: ED Physician Summary of Radiographic Findings: Right pleural effusion with consolidation. Pending offical report. - EKG No standard instances Cardiac Rate: NL EKG Rhythm: Atrial Fibrillation ST Segment: Normal Complex Multi-Symp Course/Dx Course Of Treatment: 79 year old F complains of fatigue, lethargic, weakness, decreased appetite since yesterday 11/27/2019 PM. Patient was doing well after the nasal cauterization which she had done Wednesday11/24/2019 until yesterday. No chest pain, shortness of breath, nausea/vomiting, abdominal pain, pain or burning with urination, bloody stools. Family member states patient is seeing neurology for possible Parkinson's. Upon exam, the patient appears fatigued. Her skin is pale/ashen. Cardiac rhythm irregular. Murmur noted. No focal deficits. In the ED course, the patient was given normal saline fluids 1 L IV. Patient started on azithromycin and ceftriaxone. CXR shows right pleural effusion with consolidation. Bloodwork obtained. Spoke with Dr. Garcia hospitalist who agrees to admit patient. - Diagnoses Provider Diagnoses: Weakness, Afib, Pleural effusion, Pneumonia - Physician Notifications Discussed Care Of Patient With: Jae Garcia Time Discussed With Above Provider: 18:55 Instructed by Provider To: Admit As Inpatient Discharge ED - Sign-Out/Discharge Documenting (check all that apply): Patient Departure - Discharge Plan Condition: Stable Disposition: ADMITTED TO [facility] - Billing Disposition and Condition Condition: STABLE Disposition: Admitted to [facility] - Attestation Statements Document Initiated by Belem: Yes Documenting Scribe: Clare Kilgore Provider For Whom Belem is Documenting (Include Credential): Jones Redding DO Scribe Attestation: Clare Mayorga scribed for Jones Redding DO on 12/02/19 at [facility]. Scribe Documentation Reviewed: Yes Provider Attestation: The documentation as recorded by the thanhibClare escalera accurately reflects the service I personally performed and the decisions made by Jones espinosa DO Status of Scribjw Document: Viewed
[2019-11-28 18:36] LABS: Hematocrit 32 % (35-47); Mean Corpuscular HGB Conc 32 g/dL (31-36); Mean Corpuscular Hemoglobin 23 pg (27-31); Mean Corpuscular Volume 73 fL (80-97); Mean Platelet Volume 7.9 fL (7.4-10.4); Platelet Count 210 10^3/uL (150-450); Red Blood Count 4.32 10^6 /uL (3.70-4.87); Red Cell Distribution Width 19 % (10-15); White Blood Count 10.3 10^3/uL (3.5-10.8)
[2019-11-28] MEDS ORDERED: cefTRIAXone(*) 1 GM in NS 0.9% 50 ML* 50 ML IVPB ONE (18:54)
[2019-11-28] MEDS ORDERED: Azithromycin 500 mg/250 ml NS 500 MG/250 ML BAG IVPB ONE (18:54)
[2019-11-28 19:12] LABS: ALT 10 U/L (7-52); AST 17 U/L (13-39); Albumin/Globulin Ratio 0.8 (1-3); Alkaline Phosphatase 91 U/L (34-104); Anion Gap 4 mmol/L (2-11); BUN/Creatinine Ratio 28.3 (8-20); Blood Urea Nitrogen 15 mg/dL (6-24); CO2 Carbon Dioxide 29 mmol/L (22-32); Calcium 9.7 mg/dL (8.6-10.3); Chloride 100 mmol/L (101-111); EGFR Non-African American 111.6 (>60); Globulin 3.6 g/dL (2-4); Glucose 104 mg/dL (70-100); Sodium 133 mmol/L (135-145); Total Protein 6.6 g/dL (6.4-8.9)
[2019-11-28 19:13] LABS: Platelet Morphology Large; Polychromasia 1+
[2019-11-28 19:14] LABS: ABS Basophils 0.1 10^3/ul (0-0.2); ABS Lymphocytes 0.8 10^3/ul (1.0-4.8); ABS Monocytes 1.9 10^3/ul (0-0.8); ABS Neutrophils 7.3 10^3/ul (1.5-7.7); Eosinophil % 0.3 %; Lymphocyte % 8.3 %; Nucleated Red Blood Cells % 0.1
[2019-11-28 19:16] LABS: Troponin I 0.03 ng/mL (<0.03)
[2019-11-28] MEDS ORDERED: Senna TAB 8.6 mg* TAB PO PRN (20:15)
[2019-11-28] MEDS ORDERED: Ondansetron INJ* 2 MG/ML VIAL IV PRN (20:15)
[2019-11-28] MEDS ORDERED: Al Hydrox/Mg Hydrox/Simet LIQ* 30 ML UDC PO PRN (20:15)
[2019-11-28] MEDS ORDERED: Acetaminophen TAB* 325 MG PO PRN (20:15)
[2019-11-28 20:16] LABS: % Iron Saturation 5 % (15-55); Iron < 20 ug/dL (50-212); Total Iron Binding Capacity 388 mcg/dL (250-450); Transferrin 277 mg/dL (203-362)
[2019-11-28 20:26] LABS: TSH (Thyroid Stimulating Horm) 1.07 mcIU/mL (0.34-5.60)
[2019-11-28 20:32] LABS: Ferritin 10.2 ng/mL (11-307)
[2019-11-28 20:46] LABS: C Reactive Protein 43.23 mg/L (<8.01)
[2019-11-28] MEDS ORDERED: Iron Sucrose* 200 MG in NS 0.9% 100 ML* 100 ML IVPB ONE (20:55)
[2019-11-28] MEDS ORDERED: Enoxaparin(*) 40 MG/0.4 ML SYR SUBCUT SCH (21:00)
[2019-11-28] MEDS ORDERED: Furosemide IV* 10 MG/ML VIAL (40 MG) IV SLOW PU ONE (21:05)
[2019-11-28 21:07] LABS: Urine Appearance Clear; Urine Bilirubin Negative (Negative); Urine Blood Negative (Negative); Urine Color Yellow; Urine Glucose Negative (Negative); Urine Ketones Negative (Negative); Urine Nitrite Negative (Negative); Urine Protein 1+(30 mg/dL) (Negative); Urine Specific Gravity 1.014 (1.010-1.030); Urine Urobilinogen Negative (Negative)
[2019-11-28 21:10] LABS: Urine Bacteria Absent (Absent); Urine Red Blood Cell Absent (Absent); Urine Squamous Epithelial Cell Present (Absent); Urine White Blood Cell Trace(0-5/hpf) (Absent)
[2019-11-28 21:33] LABS: Troponin I 0.03 ng/mL (<0.03)
[2019-11-28] MEDS: Metoprolol Succinate XL TAB* 100 MG PO SCH (22:35)
[2019-11-28] MEDS: Potassium Chlor TAB* 20 MEQ TAB.ER PO SCH (22:57)
--- NOTE | 2019-11-28 23:54 | HP ---
CC: Dr. Lemon * HISTORY AND PHYSICAL: DATE OF ADMISSION: 11/28/19 PROVIDER: TRISHA Traylor ATTENDING PHYSICIAN WHILE IN THE HOSPITAL: Dr. Maya Mccullough * (dictated by TRISHA Traylor). PRIMARY CARE PROVIDER: Dr. Lemon. CHIEF COMPLAINT: Fatigue and weakness x36 hours. HISTORY OF PRESENT ILLNESS: Aminah Hensley is a 79-year-old white female with past medical history significant for atrial fibrillation, not on anticoagulation ; hereditary hemorrhagic telangiectasia; hypertension; moderate aortic stenosis and heart failure with preserved ejection fraction, who presents to emergency department today due to generalized weakness and fatigue for the last 36 hours. The patient was feeling like her normal self and all of a sudden yesterday afternoon, she started to feel weak and tired. She tells me her appetite has not been changed. She has been taking her medications as prescribed and denies sick contacts. She has not had a cough or runny nose. She denies difficulty breathing, chest pain, abdominal pain, nausea, vomiting and she additionally denies unilateral weakness, numbness, tingling. She, of note, did have a cautery of her nasal cavity on 11/24/[address] Dasilva and was feeling well after this procedure. She additionally denies fever or chills. The patient denies changes in bowel or bladder. ED COURSE: The patient arrived to the emergency department and she had vitals with temperature 97.4, heart rate 93, respiratory rate 18, oxygen saturation 95 % on room air, blood pressure 133/68. The patient was found to have abnormal findings on right lower lobe of her chest x-ray and hospitalists were asked to evaluate the patient for admission. PAST MEDICAL HISTORY: 1. Atrial fibrillation (not on anticoagulation due to frequent nosebleeds). 2. Hereditary hemorrhagic telangiectasia. 3. Hypertension. 4. Moderate aortic stenosis. 5. Pulmonary hypertension. 6. Hyperlipidemia. 7. Heart failure with reduced ejection fraction. 8. Benign liver mass, benign biopsy at [facility] per the patient's . 9. Questionable coronary artery disease per medical record, however, the patient had a negative stress test 2019. PAST SURGICAL HISTORY: 1. Multiple nasal cauteries. 2. Left hip ORIF. 3. Hysterectomy. MEDICATIONS: Home medications, 1. Metoprolol succinate 50 mg at noon. 2. Metoprolol succinate 100 mg p.o. b.i.d.. 3. Potassium chloride 20 mEq p.o. b.i.d.. 4. Cholecalciferol 1000 units p.o. daily. 5. Torsemide 20 mg p.o. daily. 6. Digoxin 0.125 mg p.o. daily. ALLERGIES: No known drug allergies. FAMILY HISTORY: Mother in her 90s and was overall healthy and of unknown causes. Father of colon cancer at age 80. SOCIAL HISTORY: The patient lives with her . She had 3 adult children. 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 She denies tobacco use and illicit dug use. She drinks 1 glass of wine per day. The patient's surrogate medical decision maker should she need one is her , Leonard Hensley. REVIEW OF SYSTEMS: An 11-point review of systems was completed. All pertinent positives and negatives are above in the HPI. All other systems are negative. PHYSICAL EXAMINATION GENERAL: Thin, elderly white female lying in hospital bed, appearing comfortable, in no acute distress. HEENT: Eyes: PERRL. Sclerae anicteric. ENT: Mucous membranes moist. LUNGS: Clear to auscultation throughout. CARDIO: Regular rate and rhythm with grade 2 to 3 systolic murmur appreciated. ABDOMEN: Normoactive bowel sounds x4 quadrants. Abdomen is soft, nontender, nondistended. EXTREMITIES: No clubbing, cyanosis or edema. NEUROLOGIC: The patient is alert and oriented x3. The patient is somewhat hard of hearing. Sensation to light touch grossly intact throughout. Strength is 5/5 in all extremities. The patient is right handed. Face is symmetrical. SKIN: Warm, dry, and intact. PERTINENT STUDIES/LAB DATA: White blood cell count 10.3, hemoglobin 10, hematocrit 32, platelet count 210. Sodium 133, potassium 4, chloride 100, carbon dioxide 29, anion gap 4, BUN 15, creatinine 0.53, glucose 104, lactic acid 0.9, calcium 9.7, iron less than 20, TIBC 388, percent saturation of iron 5 , transferrin 27, ferritin 10.2, total bili 1.1, AST 17, ALT 10, alk phos 91, troponin 0.03, TSH 1.07. Chest x-ray, official read by the radiologist is pending. However, it appears that she has a moderate sized pleural effusion on the right side with vascular congestion. The pleural effusion is greatly increased from her last x-ray. EKG, atrial fibrillation at 93 beats per minute, no ST elevations or depressions , there are T-wave inversions in V1 and V2, which are consistent with her previous EKG in July 2019. ASSESSMENT AND PLAN: Aminah Hensley is a 79-year-old white female with past medical history significant for atrial fibrillation, not on anticoagulation; hypertension; aortic stenosis; heart failure with preserved ejection fraction, who presents to emergency department today due to fatigue and generalized weakness. The patient will be admitted OBV for: 1. Generalized weakness: The patient has no focal deficits. At this point, I believe that she is likely decompensated from the finding in her lungs. I have ordered PT/OT to evaluate the patient to determine her needs. The patient's TSH was normal. 2. Right sided pleural effusion. At this time, it is difficult to discern whether there would be an underlying consolidation, although to me it appears that this a moderate sized pleural effusion. In order to differentiate this, I would like to order a CT of the chest. She did present with similar symptoms last time she was hospitalized for an acute heart failure decompensation. However at this time, I would like to await further testing before deciding to aggressively diurese versus give antibiotics. The emergency department provider did already order 1 dose of ceftriaxone, azithromycin. At this time, I do not believe these need to continue. However, if her CRP is significantly elevated, then perhaps it should be considered. Additionally, the CT scan will help differentiate this. I am also awaiting a BNP. At this time, she does not really have any clinical findings of pneumonia. She has not had sick contacts. She does not have leukocytosis or fever or other signs of illness. Her lungs overall sound clear. I will continue her home torsemide and perhaps more aggressive IV diuresis will be determined after testing. 3. Atrial fibrillation. The patient is rate controlled. At this time, I will continue her dose of 3 times a day metoprolol succinate and her digoxin. The patient will be monitored on telemetry. 4. Heart failure with preserved ejection fraction. At this time, I am waiting to determine if this patient has any decompensation as previously mentioned and I will continue her torsemide at this point and await further choices of her diuresis as previously discussed. 5. Anemia. It appears that the patient has iron deficiency anemia and I will order iron sucrose. 6. Hypertension. The patient is overall normotensive. We will continue her home metoprolol. 7. FEN. The patient may have a regular unrestricted diet. Her electrolytes are in no need for replacement and the patient already received IV hydration in the emergency department with 1 L of fluids and I will stop this at this time. 8. DVT prophylaxis. The patient has a DVT risk score of 3 and I will use Lovenox 30 mg subcu daily. 9. Code status. The patient is DNR, but okay with intubation and her MOLST has been updated. This case has been reviewed by my attending, Dr. Maya Mccullough and she agrees with this plan of care. TIME SPENT: Approximately 50 minutes was spent on this admission, approximately half of the time was spent at bedside evaluating the patient and discussing plan of care. TRISHA TRAYLOR [id number]/[facility] #: [id number] MTDDahlia
[2019-11-29 01:08] LABS: Troponin I 0.04 ng/mL (<0.03)
[2019-11-29 07:22] LABS: Troponin I 0.03 ng/mL (<0.03)
[2019-11-29] MEDS: Metoprolol Succinate XL TAB* 100 MG PO SCH ×2 (08:50→21:28)
[2019-11-29] MEDS: Potassium Chlor TAB* 20 MEQ TAB.ER PO SCH ×2 (08:50→23:06)
[2019-11-29] MEDS: Furosemide IV* 10 MG/ML VIAL (40 MG) IV SLOW PU SCH ×2 (08:51→18:03)
[2019-11-29] MEDS: Cholecalciferol TAB* 1000 UNITS PO SCH (08:51)
[2019-11-29] MEDS ORDERED: Digoxin TAB* 0.125 MG PO SCH (09:00)
[2019-11-29] MEDS ORDERED: Torsemide TAB* 20 MG PO SCH (09:00)
[2019-11-29 09:31] LABS: ABS Lymphocytes 0.6 10^3/ul (1.0-4.8); ABS Monocytes 1.3 10^3/ul (0-0.8); ABS Neutrophils 6.7 10^3/ul (1.5-7.7); Eosinophil % 0.3 %; Hematocrit 33 % (35-47); Hemoglobin 10.5 g/dL (12.0-16.0); Lymphocyte % 6.6 %; Mean Corpuscular HGB Conc 32 g/dL (31-36); Mean Corpuscular Hemoglobin 23 pg (27-31); Mean Corpuscular Volume 74 fL (80-97); Mean Platelet Volume 7.9 fL (7.4-10.4); Platelet Count 222 10^3/uL (150-450); Red Blood Count 4.49 10^6 /uL (3.70-4.87); Red Cell Distribution Width 19 % (10-15); White Blood Count 8.7 10^3/uL (3.5-10.8)
[2019-11-29 09:47] LABS: Calcium 9.7 mg/dL (8.6-10.3); Potassium 4.1 mmol/L (3.5-5.0)
[2019-11-29] MEDS ORDERED: Metoprolol Succinate XL TAB* 50 MG PO SCH (12:00)
[2019-11-29] MEDS: Ferrous Sulfate TAB* 325 MG PO SCH (13:27)
--- NOTE | 2019-11-29 13:35 | PN ---
Subjective Date of Service: 11/29/19 Interval History: Ms. Hensley is feeling a little better today. She has been able to catch up on some sleep and reports she has not been sleeping well at home. Her family does not think this is entirely true. She is still feeling generally weak and has not been OOB. Denies CP, SOB. She is generally a poor eater but her reports she has been losing more weight recently (8lbs in 3 mo?). No concerns from nursing. Family History: Unchanged from Admission Social History: Unchanged from Admission Past Medical History: Unchanged from Admission Objective Active Medications: Acetaminophen (Tylenol Tab*) 650 mg PO Q4H PRN MILD PAIN or TEMP > 100.4 Al Hydrox/Mg Hydrox/Simethicone (Maalox Plus*) 30 ml PO Q6H PRN INDIGESTION Cholecalciferol (Vitamin D Tab*) 1,000 units PO DAILY [facility] Digoxin (Lanoxin Tab*) 0.125 mg PO QAM [facility] Ferrous Sulfate (Ferrous Sulfate Tab*) 325 mg PO DAILY [facility] Furosemide (Lasix Iv*) 40 mg IV SLOW PU 0800,1700 [facility] Metoprolol Succinate (Toprol Xl Tab*) 100 mg PO BID [facility] Metoprolol Succinate (Toprol Xl Tab*) 50 mg PO 1200 [facility] Ondansetron HCl (Zofran Inj*) 4 mg IV Q4H PRN NAUSEA/VOMITING Potassium Chloride (Klor Con Er Tab*) 20 meq PO BID [facility] Senna (Senokot 8.6 Mg Tab*) 1 tab PO BID PRN CONSTIPATION Vital Signs - 8 hr 11/29/19 07:30 Pulse Rate 62 Respiratory 16 Rate Blood Pressure 115/45 (mmHg) O2 Sat by Pulse 90 Oximetry Oxygen Devices in Use Now: None Appearance: Elderly female lying in bed in NAD Ears/Nose/Mouth/Throat: Mucous Membranes Moist Neck: NL Appearance and Movements; NL JVP, Trachea Midline Respiratory: Symmetrical Chest Expansion and Respiratory Effort, Clear to Auscultation - RLL very diminished Cardiovascular: NL Sounds; No Murmurs; No JVD, - - Irregular Extremities: No Edema Neurological: Alert and Oriented x 3 Lines/Tubes/Other Access: Clean, Dry and Intact Peripheral IV Nutrition: Taking PO's Result Diagrams: 11/29/19 09:23 11/29/19 09:23 Assess/Plan/Problems-Billing Assessment: Ms. Hensley is a 79 yo F with PMH of afib not on AC, HTN, moderate , pHTN, HLD, HFrEF, CAD, recurrent epistaxis; who presented to the ED with c/o generalized weakness and was admitted for further evaluation. - Patient Problems (1) Acute on chronic heart failure with preserved ejection fraction (HFpEF) Code(s): I50.33 - ACUTE ON CHRONIC DIASTOLIC (CONGESTIVE) HEART FAILURE Comment: - Not decompensated - admits that he was only giving torsemide every other day because he was concerned about weight loss - CT chest showing moderate right pleural effusion - No need for repeat echo at this time - Continue furosemide, metoprolol (2) Generalized weakness Code(s): R53.1 - WEAKNESS Comment: - Suspect multifactorial: mild CHF exacerbation, mild anemia, deconditioning, weight loss - PT/OT evals (3) Weight loss Comment: - BMI 17; family reports 8 lb weight loss in the last 3 mo - Digoxin may be a contributing factor - Nutrition consult - Start Remeron (4) Afib Code(s): I48.91 - UNSPECIFIED ATRIAL FIBRILLATION Comment: - Rate controlled - Not on AC d/t recurrent epistaxis - Concern that digoxin may be contributing to weight loss as that has been a concern in the past; spoke with primary hoop riveter, Dr. Mc, who advised to stop dig and start verapamil - Continue metoprolol; start verapamil (5) Anemia Code(s): D64.9 - ANEMIA, UNSPECIFIED Comment: - New iron deficiency - Received iron sucrose x1 yesterday - Start ferrous sulfate (6) HTN (hypertension) Code(s): I10 - ESSENTIAL (PRIMARY) HYPERTENSION Comment: - Normotensive - Continue metoprolol (7) DVT prophylaxis Comment: - SCDs (8) DNR (do not resuscitate) Comment: Status and Disposition: Observation. Anticipate d/c home when medically stable. Attending: Trang Reddy
[2019-11-29] MEDS ORDERED: Melatonin 3 MG TAB PO PRN (13:41)
[2019-11-29] MEDS ORDERED: Verapamil TAB* 80 MG PO SCH (14:00)
[2019-11-29] MEDS ORDERED: Mirtazapine TAB* 15 MG PO SCH (21:00)
[2019-11-29] MEDS: Verapamil TAB* 80 MG PO SCH (21:29)
[2019-11-30 06:02] LABS: ABS Basophils 0.1 10^3/ul (0-0.2); ABS Eosinophils 0.1 10^3/ul (0-0.6); ABS Lymphocytes 0.8 10^3/ul (1.0-4.8); ABS Monocytes 1.4 10^3/ul (0-0.8); ABS Neutrophils 4.5 10^3/ul (1.5-7.7); Eosinophil % 1.4 %; Hematocrit 32 % (35-47); Hemoglobin 10.1 g/dL (12.0-16.0); Lymphocyte % 11.2 %; Mean Corpuscular HGB Conc 32 g/dL (31-36); Mean Corpuscular Hemoglobin 23 pg (27-31); Mean Corpuscular Volume 73 fL (80-97); Mean Platelet Volume 8.3 fL (7.4-10.4); Nucleated Red Blood Cells % 0.1; Platelet Count 205 10^3/uL (150-450); Red Blood Count 4.37 10^6 /uL (3.70-4.87); Red Cell Distribution Width 19 % (10-15); White Blood Count 6.9 10^3/uL (3.5-10.8)
[2019-11-30 06:05] LABS: BUN/Creatinine Ratio 23.6 (8-20); Calcium 10.1 mg/dL (8.6-10.3); EGFR African American 129.3 (>60); EGFR Non-African American 106.9 (>60); Potassium 4.1 mmol/L (3.5-5.0)
[2019-11-30] MEDS: Furosemide IV* 10 MG/ML VIAL (40 MG) IV SLOW PU SCH ×2 (11:26→17:58)
[2019-11-30] MEDS: Metoprolol Succinate XL TAB* 100 MG PO SCH ×2 (11:26→20:34)
[2019-11-30] MEDS: Ferrous Sulfate TAB* 325 MG PO SCH (11:29)
[2019-11-30] MEDS: Potassium Chloride* LIQUID 20 MEQ/15 ML UDC PO SCH ×2 (11:30→20:31)
[2019-11-30] MEDS: Potassium Chlor TAB* 20 MEQ TAB.ER PO SCH (11:45)
[2019-11-30] MEDS ORDERED: Metoprolol Succinate XL TAB* 50 MG PO SCH (12:00)
[2019-11-30] MEDS: Verapamil TAB* 80 MG PO SCH ×2 (12:22→15:19)
[2019-11-30] MEDS: Cholecalciferol TAB* 1000 UNITS PO SCH (12:29)
--- NOTE | 2019-11-30 13:28 | PN ---
Subjective Date of Service: 11/30/19 Interval History: Ms. Hensley is feeling okay this morning. She offers no specific complaints. She is not sure if she slept well overnight. Does not feel dizzy or lightheaded, but still generally tired. No CP or SOB. expressing concern about lethargy early this morning upon waking, now resolved. No concerns from nursing. Family History: Unchanged from Admission Social History: Unchanged from Admission Past Medical History: Unchanged from Admission Objective Active Medications: Acetaminophen (Tylenol Tab*) 650 mg PO Q4H PRN PRN Reason: MILD PAIN or TEMP > 100.4 Al Hydrox/Mg Hydrox/Simethicone (Maalox Plus*) 30 ml PO Q6H PRN PRN Reason: INDIGESTION Cholecalciferol (Vitamin D Tab*) 1,000 units PO DAILY [facility] Last Admin: 11/30/19 12:29 Dose: 1,000 units Ferrous Sulfate (Ferrous Sulfate Tab*) 325 mg PO DAILY [facility] Last Admin: 11/30/19 11:29 Dose: 325 mg Furosemide (Lasix Iv*) 40 mg IV SLOW PU 0800,1700 [facility] Last Admin: 11/30/19 11:26 Dose: 40 mg Melatonin (Melatonin) 3 mg PO BEDTIME PRN PRN Reason: SLEEP Metoprolol Succinate (Toprol Xl Tab*) 100 mg PO BID [facility] Last Admin: 11/30/19 11:26 Dose: 100 mg Mirtazapine (Remeron Tab*) 7.5 mg PO DAILY@2000 [facility] Ondansetron HCl (Zofran Inj*) 4 mg IV Q4H PRN PRN Reason: NAUSEA/VOMITING Potassium Chloride (Potassium Chloride Liquid) 20 meq PO BID [facility] Last Admin: 11/30/19 11:30 Dose: 20 meq Senna (Senokot 8.6 Mg Tab*) 1 tab PO BID PRN PRN Reason: CONSTIPATION Verapamil HCl (Calan Tab*) 40 mg PO BID@0900,1400 [facility] Vital Signs - 8 hr 11/30/19 11/30/19 07:25 11:00 Temperature 98.0 F 98.0 F Pulse Rate 78 83 Respiratory 18 16 Rate Blood Pressure 139/57 132/48 (mmHg) O2 Sat by Pulse 95 91 Oximetry Oxygen Devices in Use Now: None Appearance: Elderly female sitting in chair in NAD Ears/Nose/Mouth/Throat: Mucous Membranes Moist Neck: NL Appearance and Movements; NL JVP, Trachea Midline Respiratory: Symmetrical Chest Expansion and Respiratory Effort, Clear to Auscultation Cardiovascular: - - Irregular, grade 3/6 systolic murmur Abdominal: NL Sounds; No Tenderness; No Distention Extremities: No Edema Neurological: - - Oriented to self and place Lines/Tubes/Other Access: Clean, Dry and Intact Peripheral IV Nutrition: Taking PO's Result Diagrams: 11/30/19 05:02 11/30/19 05:02 Assess/Plan/Problems-Billing Assessment: Ms. Hensley is a 79 yo F with PMH of afib not on AC, HTN, moderate , pHTN, HLD, HFrEF, CAD, recurrent epistaxis; who presented to the ED with c/o generalized weakness and was admitted for further evaluation. - Patient Problems (1) Acute on chronic heart failure with preserved ejection fraction (HFpEF) Code(s): I50.33 - ACUTE ON CHRONIC DIASTOLIC (CONGESTIVE) HEART FAILURE Comment: - Compensated - admits that he was only giving torsemide every other day because he was concerned about weight loss - CT chest showing moderate right pleural effusion - No need for repeat echo at this time - Continue furosemide, metoprolol (2) Generalized weakness Code(s): R53.1 - WEAKNESS Comment: - Suspect multifactorial: mild CHF exacerbation, mild anemia, deconditioning, weight loss - PT/OT evals (3) Weight loss Comment: - BMI 17; family reports 8 lb weight loss in the last 3 mo - Digoxin may be a contributing factor - Nutrition consult - Continue Remeron, but will half dose d/t concern for morning drowsiness (4) Afib Code(s): I48.91 - UNSPECIFIED ATRIAL FIBRILLATION Comment: - Borderline tachycardic yesterday then significant bradycardia yesterday evening (down into the 40s), now borderline tachy again this morning - Rate has been historically hard to control and will require monitoring during medication adjustments to avoid any symptomatic katina/tachycardia - Not on AC d/t recurrent epistaxis - Concern that digoxin may be contributing to weight loss as that has been a concern in the past; spoke with primary medical office representative, Dr. Mc, who advised to stop dig and start verapamil - Continue metoprolol (down to BID); continue verapamil (5) Anemia Code(s): D64.9 - ANEMIA, UNSPECIFIED Comment: - New iron deficiency - Received iron sucrose x1 yesterday - Start ferrous sulfate (6) HTN (hypertension) Code(s): I10 - ESSENTIAL (PRIMARY) HYPERTENSION Comment: - Normotensive - Continue metoprolol (7) DVT prophylaxis Comment: - SCDs (8) DNR (do not resuscitate) Comment: Status and Disposition: Observation. Anticipate d/c home when medically stable, hopefully tomorrow. Attending: Trang Reddy
[2019-11-30] MEDS: Mirtazapine TAB* 15 MG PO SCH (20:31)
[2019-12-01] MEDS: Verapamil TAB* 80 MG PO SCH ×2 (08:09→15:38)
[2019-12-01] MEDS: Furosemide IV* 10 MG/ML VIAL (40 MG) IV SLOW PU SCH ×2 (08:09→17:51)
[2019-12-01] MEDS: Metoprolol Succinate XL TAB* 100 MG PO SCH ×2 (08:10→21:30)
[2019-12-01] MEDS: Ferrous Sulfate TAB* 325 MG PO SCH (08:11)
[2019-12-01] MEDS: Potassium Chloride* LIQUID 20 MEQ/15 ML UDC PO SCH ×2 (08:12→21:29)
[2019-12-01] MEDS: Cholecalciferol TAB* 1000 UNITS PO SCH (08:12)
--- NOTE | 2019-12-01 15:52 | PN ---
Subjective Date of Service: 12/01/19 Interval History: Ms. Hensley is feeling well this morning. She is still feeling a bit tired, but improved from yesterday. She does want to go home. Denies CP, SOB. Has been able to get up and ambulate. was initially willing to take patient home this morning, but decided later in the day that he would like her to go to [facility] so d/c was canceled. No concerns from nursing. Family History: Unchanged from Admission Social History: Unchanged from Admission Past Medical History: Unchanged from Admission Objective Active Medications: Acetaminophen (Tylenol Tab*) 650 mg PO Q4H PRN MILD PAIN or TEMP > 100.4 Al Hydrox/Mg Hydrox/Simethicone (Maalox Plus*) 30 ml PO Q6H PRN INDIGESTION Cholecalciferol (Vitamin D Tab*) 1,000 units PO DAILY [facility] Ferrous Sulfate (Ferrous Sulfate Tab*) 325 mg PO DAILY [facility] Furosemide (Lasix Iv*) 40 mg IV SLOW PU 0800,1700 [facility] Melatonin (Melatonin) 3 mg PO BEDTIME PRN SLEEP Metoprolol Succinate (Toprol Xl Tab*) 100 mg PO BID [facility] Mirtazapine (Remeron Tab*) 7.5 mg PO DAILY@2000 [facility] Ondansetron HCl (Zofran Inj*) 4 mg IV Q4H PRN NAUSEA/VOMITING Potassium Chloride (Potassium Chloride Liquid) 20 meq PO BID [facility] Senna (Senokot 8.6 Mg Tab*) 1 tab PO BID PRN CONSTIPATION Verapamil HCl (Calan Tab*) 40 mg PO BID@0900,1400 [facility] Vital Signs - 8 hr 12/01/19 12/01/19 12/01/19 08:00 08:08 12:00 Temperature 97.2 F Pulse Rate 88 58 Respiratory 18 18 Rate Blood Pressure 125/34 (mmHg) O2 Sat by Pulse 96 Oximetry 12/01/19 12/01/19 12:56 15:32 Temperature 99.2 F Pulse Rate 76 80 Respiratory 20 Rate Blood Pressure 128/50 134/36 (mmHg) O2 Sat by Pulse 94 Oximetry Oxygen Devices in Use Now: None Appearance: Elderly female sitting in bed in NAD Ears/Nose/Mouth/Throat: Mucous Membranes Moist Neck: NL Appearance and Movements; NL JVP, Trachea Midline Respiratory: Symmetrical Chest Expansion and Respiratory Effort, Clear to Auscultation Cardiovascular: - - Irregular, grade 3/6 systolic murmur Abdominal: NL Sounds; No Tenderness; No Distention Extremities: No Edema Neurological: - - Oriented to self and place Lines/Tubes/Other Access: Clean, Dry and Intact Peripheral IV Nutrition: Taking PO's Result Diagrams: 11/30/19 05:02 11/30/19 05:02 Assess/Plan/Problems-Billing Assessment: Ms. Hensley is a 79 yo F with PMH of afib not on AC, HTN, moderate , pHTN, HLD, HFrEF, CAD, recurrent epistaxis; who presented to the ED with c/o generalized weakness and was admitted for further evaluation. - Patient Problems (1) Acute on chronic heart failure with preserved ejection fraction (HFpEF) Code(s): I50.33 - ACUTE ON CHRONIC DIASTOLIC (CONGESTIVE) HEART FAILURE Comment: - Compensated - admits that he was only giving torsemide every other day because he was concerned about weight loss - CT chest showing moderate right pleural effusion - No need for repeat echo at this time - Continue furosemide, metoprolol (2) Generalized weakness Code(s): R53.1 - WEAKNESS Comment: - Suspect multifactorial: mild CHF exacerbation, mild anemia, deconditioning, weight loss - PT/OT evals (3) Weight loss Comment: - BMI 17; family reports 8 lb weight loss in the last 3 mo - Digoxin may be a contributing factor - Nutrition consult - Continue Remeron (4) Afib Code(s): I48.91 - UNSPECIFIED ATRIAL FIBRILLATION Comment: - Rate controlled - Rate has been historically hard to control and will require monitoring during medication adjustments to avoid any symptomatic katina/tachycardia - Not on AC d/t recurrent epistaxis - Concern that digoxin may be contributing to weight loss as that has been a concern in the past; spoke with primary human resources office manager, Dr. Mc, who advised to stop dig and start verapamil - Continue metoprolol, verapamil (5) Anemia Code(s): D64.9 - ANEMIA, UNSPECIFIED Comment: - New iron deficiency - Received iron sucrose x1 - Continue ferrous sulfate (6) HTN (hypertension) Code(s): I10 - ESSENTIAL (PRIMARY) HYPERTENSION Comment: - Normotensive - Continue metoprolol, verapamil (7) DVT prophylaxis Comment: - SCDs (8) DNR (do not resuscitate) Comment: Status and Disposition: Observation. Anticipate d/c to [facility] when bed offer received. Attending: Trang Reddy
[2019-12-01] MEDS: Mirtazapine TAB* 15 MG PO SCH (21:29)
[2019-12-02] MEDS: Verapamil TAB* 80 MG PO SCH ×3 (08:57→15:15)
[2019-12-02] MEDS: Cholecalciferol TAB* 1000 UNITS PO SCH (08:57)
[2019-12-02] MEDS: Potassium Chloride* LIQUID 20 MEQ/15 ML UDC PO SCH ×2 (08:57→21:07)
[2019-12-02] MEDS: Metoprolol Succinate XL TAB* 100 MG PO SCH (08:58)
[2019-12-02] MEDS: Ferrous Sulfate TAB* 325 MG PO SCH (08:58)
[2019-12-02] MEDS: Furosemide IV* 10 MG/ML VIAL (40 MG) IV SLOW PU SCH (08:58)
--- NOTE | 2019-12-02 14:34 | PN ---
Subjective Date of Service: 12/02/19 Interval History: Ms. Hensley is feeling better today. She feels like she has a bit more energy. Denies CP or SOB. Her at bedside thinks she looks improved. He is hoping that if she looks significantly better tomorrow, he could just take her home. No concerns from nursing. Family History: Unchanged from Admission Social History: Unchanged from Admission Past Medical History: Unchanged from Admission Objective Active Medications: Acetaminophen (Tylenol Tab*) 650 mg PO Q4H PRN MILD PAIN or TEMP > 100.4 Al Hydrox/Mg Hydrox/Simethicone (Maalox Plus*) 30 ml PO Q6H PRN INDIGESTION Cholecalciferol (Vitamin D Tab*) 1,000 units PO DAILY CLARY Ferrous Sulfate (Ferrous Sulfate Tab*) 325 mg PO DAILY CLARY Furosemide (Lasix Iv*) 40 mg IV SLOW PU 0800,1700 [facility] Melatonin (Melatonin) 3 mg PO BEDTIME PRN SLEEP Metoprolol Succinate (Toprol Xl Tab*) 100 mg PO BID [facility] Mirtazapine (Remeron Tab*) 7.5 mg PO DAILY@2000 [facility] Ondansetron HCl (Zofran Inj*) 4 mg IV Q4H PRN NAUSEA/VOMITING Potassium Chloride (Potassium Chloride Liquid) 20 meq PO BID [facility] Senna (Senokot 8.6 Mg Tab*) 1 tab PO BID PRN CONSTIPATION Verapamil HCl (Calan Tab*) 40 mg PO BID@0900,1400 [facility] Vital Signs - 8 hr 12/02/19 12/02/19 12/02/19 07:15 08:00 11:15 Temperature 98.3 F 97.6 F Pulse Rate 94 53 Respiratory 16 18 17 Rate Blood Pressure 116/53 105/36 (mmHg) O2 Sat by Pulse 93 97 Oximetry Oxygen Devices in Use Now: None Appearance: Elderly female lying in bed in NAD Ears/Nose/Mouth/Throat: Mucous Membranes Moist Neck: NL Appearance and Movements; NL JVP, Trachea Midline Respiratory: Symmetrical Chest Expansion and Respiratory Effort, Clear to Auscultation Cardiovascular: - - Irregular, grade 3/6 systolic murmur Extremities: No Edema Neurological: - - Oriented to self and place Lines/Tubes/Other Access: Clean, Dry and Intact Peripheral IV Nutrition: Taking PO's Result Diagrams: 11/30/19 05:02 11/30/19 05:02 Assess/Plan/Problems-Billing Assessment: Ms. Hensley is a 79 yo F with PMH of afib not on AC, HTN, moderate , pHTN, HLD, HFrEF, CAD, recurrent epistaxis; who presented to the ED with c/o generalized weakness and was admitted for further evaluation. - Patient Problems (1) Acute on chronic heart failure with preserved ejection fraction (HFpEF) Code(s): I50.33 - ACUTE ON CHRONIC DIASTOLIC (CONGESTIVE) HEART FAILURE Comment: - Compensated - admits that he was only giving torsemide every other day because he was concerned about weight loss - CT chest showing moderate right pleural effusion - No need for repeat echo at this time - Continue metoprolol; d/c furosemide and restart torsemide (2) Generalized weakness Code(s): R53.1 - WEAKNESS Comment: - Suspect multifactorial: mild CHF exacerbation, mild anemia, deconditioning, weight loss - PT/OT evals (3) Weight loss Comment: - BMI 17; family reports 8 lb weight loss in the last 3 mo - Digoxin may be a contributing factor - Nutrition consult - Continue Remeron (4) Afib Code(s): I48.91 - UNSPECIFIED ATRIAL FIBRILLATION Comment: - Rate controlled - Rate has been historically hard to control and will require monitoring during medication adjustments to avoid any symptomatic katina/tachycardia - Not on AC d/t recurrent epistaxis - Concern that digoxin may be contributing to weight loss as that has been a concern in the past; spoke with primary facility engineer, Dr. Mc, who advised to stop dig and start verapamil - Continue metoprolol (decrease), verapamil (5) Anemia Code(s): D64.9 - ANEMIA, UNSPECIFIED Comment: - New iron deficiency - Received iron sucrose x1 - Continue ferrous sulfate (6) HTN (hypertension) Code(s): I10 - ESSENTIAL (PRIMARY) HYPERTENSION Comment: - Normotensive - Continue metoprolol, verapamil (7) DVT prophylaxis Comment: - SCDs (8) DNR (do not resuscitate) Comment: Status and Disposition: Observation. Awaiting bed offer for [facility]. Attending: Maya Mccullough
[2019-12-02] MEDS: Metoprolol Succinate XL TAB* 25 MG PO SCH (21:01)
[2019-12-02] MEDS: Mirtazapine TAB* 15 MG PO SCH (21:06)
[2019-12-03] MEDS: Verapamil TAB* 80 MG PO SCH ×3 (09:00→16:40)
[2019-12-03] MEDS: Metoprolol Succinate XL TAB* 25 MG PO SCH ×2 (09:00→21:11)
[2019-12-03] MEDS: Potassium Chloride* LIQUID 20 MEQ/15 ML UDC PO SCH ×2 (10:30→21:06)
[2019-12-03] MEDS: Ferrous Sulfate TAB* 325 MG PO SCH (10:30)
[2019-12-03] MEDS: Torsemide TAB* 20 MG PO SCH (10:30)
[2019-12-03] MEDS: Cholecalciferol TAB* 1000 UNITS PO SCH (10:30)
--- NOTE | 2019-12-03 19:00 | DS ---
CC: Dr. Velvet Lemon; Dr. Gracy Mc * DISCHARGE SUMMARY: DATE OF ADMISSION: 11/28/19 ANTICIPATED DATE OF DISCHARGE: 12/04/19 (this is being dictated one day in advance). PRIMARY CARE PROVIDER: Dr. Velvet Lemon. IMPREGNATOR [employer]: Dr. Gracy Mc. ATTENDING PHYSICIAN: Dr. Maya Mccullough.* (DICTATED BY MAX KO NP) PRIMARY DIAGNOSES: 1. Acute on chronic heart failure with preserved ejection fraction. 2. Atrial fibrillation. 3. Weight loss. 4. Iron deficiency anemia. SECONDARY DIAGNOSES: 1. Hypertension. 2. Moderate aortic stenosis. 3. Coronary artery disease. 4. Hyperlipidemia. 5. Pulmonary hypertension. STUDIES WHILE IN THE HOSPITAL: 1. Chest x-ray on 11/28/19 reads as moderate sized right pleural effusion and right basilar infiltrate and small left pleural effusion. 2. EKG on 11/28/19 shows atrial fibrillation with a rate of 93, Q-waves in anterior leads, left ventricular hypertrophy, QTc of 436. 3. Chest CT on 11/28/19 reads as stable moderate right pleural effusion and decreased size of very small left pleural effusion with continued bibasilar atelectatic change. Stable cardiomegaly. Stable mild mediastinal lymphadenopathy. 4. EKG on 11/28/19 shows atrial fibrillation with a rate of 89, Q-waves in anterior leads, left ventricular hypertrophy, QTc of 451. HISTORY OF PRESENT ILLNESS AND HOSPITAL COURSE: Ms. Hensley is a 79-year-old female with past medical history of atrial fibrillation, not on anticoagulation ; hereditary hemorrhagic telangiectasia; hypertension; moderate aortic stenosis ; pulmonary hypertension; hyperlipidemia; HFpEF, who presented to the emergency room on 11/28/19 with complaints of fatigue and weakness. Please see the history and physical by TRISHA Traylor for complete summary of the events leading up to this hospitalization. In short, the patient and her family reported approximately 36 hours of generalized weakness and fatigue without any other complaints. The patient did have a cautery of her nasal cavity on without complication. In the emergency room, the patient was found to have a pleural effusion which was suspected to be secondary to heart failure and so the patient was admitted by the hospitalist service. She was placed on furosemide. There was no pulmonary or peripheral edema noted. She was noted to have an elevated troponin which peaked at 0.04 secondary to demand ischemia and she had an elevated BNP at 1200. The patient showed gradual improvement with diuresis. The did admit that he had not been giving the patient her torsemide every day and had been giving it every other day or less than that as he was concerned that she was losing weight. It seems as though the patient has been losing weight over a number of years and is currently noted to have a BMI of 17. She was seen by a dietitian who recommended Ensure. Additionally, there was some concern expressed by the patient's about digoxin leading to weight loss as this had previously been discussed with the patient's die maintenance, Dr. Mc. I did personally speak with Dr. Mc about the concern for a weight loss and the possible contribution of digoxin to her weight loss and Dr. Mc advised that the patient could be taken off digoxin and could instead be placed on verapamil. She did advise that metoprolol may need to be titrated. At this point, the patient's metoprolol has been decreased and she has been on twice daily verapamil for the last 3 days. She has done quite well with these medications. She does occasionally get bradycardic during sleep, but is asymptomatic at that time and during the day, heart rate ranges from the 70s to 80s. She does seem to have improved energy since admission to the hospital and she reports feeling significantly better. She was noted to have new onset iron deficiency anemia on admission and was given 1 dose of IV iron and then continued on oral iron supplementation. Due to her generalized weakness, she was evaluated by Physical and Occupational Therapy and at this point, it has been recommended that the patient go to rehab prior to discharge home. The patient and her are agreeable with this plan and have accepted a rehab bed at [facility] for 12/04/19. On exam, Ms. Hensley is alert and oriented x4 with no focal neurological deficits , though is slightly slow to respond which appears to be her baseline. Heart rate is irregular, but rate controlled. There is a grade 3/6 systolic murmur consistent with her moderate aortic stenosis. There are no rubs or gallops. Lungs are clear to auscultation without rhonchi, wheezes or rubs. There is no peripheral edema. There is no abdominal distention and the abdomen is soft and nontender. Physical exam was otherwise benign. Ms. Hensley is stable for discharge. Most recent vitals are as follows: Temp 98.6, heart rate 83, respiratory rate 16, oxygen saturation 93% on room air, blood pressure 123/39. DISCHARGE MEDICATIONS: New: 1. Ferrous sulfate 325 mg p.o. daily. 2. Mirtazapine 7.5 mg p.o. at bedtime. 3. Verapamil 40 mg p.o. twice daily at 0900 and 1600. Changed: 1. Metoprolol succinate 75 mg p.o. b.i.d. (previously was 100 b.i.d. and 50 at noon). Continued: 1. Cholecalciferol 1000 units p.o. daily. 2. Potassium chloride 20 mEq p.o. b.i.d. 3. Torsemide 20 mg p.o. daily. Discontinued: 1. Digoxin. DISCHARGE PLAN: Ms. Hensley will be discharged to rehab. Activity will be as tolerated. Diet will be heart healthy. Medications are noted above. The patient has been taken off digoxin and instead placed on verapamil. She has been doing well on twice daily dosing. Her b.i.d. metoprolol has been decreased and her noon dose of metoprolol has been discontinued. She has been placed on ferrous sulfate for newly noted iron deficiency anemia and she has been placed on a low dose of mirtazapine at bedtime to aid with sleep and appetite stimulation. She can continue her other usual medications as noted above. She should be taking her torsemide daily and I have educated the patient 's on this matter. She will need to follow up closely with Cardiology due to recent medication changes and the patient's plans to make an appointment for the patient to be seen by a nurse practitioner and the die maintenance this coming week. She will need to follow up with a provider at the rehab facility and can thereafter follow up with her primary care provider upon discharge. She should return to the emergency room or nearest hospital for any worsening of symptoms, shortness of breath, lightheadedness, dizziness, chest discomfort, high fevers, chills, night sweats, loss of consciousness or any other worrisome signs or symptoms. DISCHARGE CONDITION: Stable. DISCHARGE DISPOSITION: [facility] [place]. This is a summarized report of a complex medical history and hospital stay. For further details, please see the entire medical record. TIME SPENT: Approximately 45 minutes was spent on this discharge. MAX KO, XIMENA [id number]/[facility] #: [id number] KJ
[2019-12-03] MEDS: Mirtazapine TAB* 15 MG PO SCH (21:12)
[2019-12-04] MEDS: Metoprolol Succinate XL TAB* 25 MG PO SCH (10:07)
[2019-12-04] MEDS: Ferrous Sulfate TAB* 325 MG PO SCH (10:09)
[2019-12-04] MEDS: Torsemide TAB* 20 MG PO SCH (10:09)
[2019-12-04] MEDS: Potassium Chloride* LIQUID 20 MEQ/15 ML UDC PO SCH (10:09)
[2019-12-04] MEDS: Cholecalciferol TAB* 1000 UNITS PO SCH (10:09)
[2019-12-04] MEDS: Verapamil TAB* 80 MG PO SCH (10:12)
[2019-12-04 13:58] VITALS: BP 104/35
--- NOTE | 2019-12-04 14:05 | PN ---
Hospitalist Progress Note Date of Service: 12/04/19 Patient remains stable for discharge to [facility] today. No changes since discharge summary dictation.
== END 2019-12-04 13:15 | DRG 292 ==
LOC: ED 17:47 → MED 20:15 → OBSVTOIN 11-30 12:28
PROVIDERS: ADMIT Physician Assistant; ATTEND Hospitalist
DX: I11.0 Hypertensive heart disease with heart failure (principal); Z68.1 Body mass index [BMI] 19.9 or less, adult; I24.8 Other forms of acute ischemic heart disease; I48.91 Unspecified atrial fibrillation; E78.00 Pure hypercholesterolemia, unspecified; I25.10 Atherosclerotic heart disease of native coronary artery without angina pectoris; H91.93 Unspecified hearing loss, bilateral; I78.0 Hereditary hemorrhagic telangiectasia; I35.0 Nonrheumatic aortic (valve) stenosis; I27.20 Pulmonary hypertension, unspecified; E78.5 Hyperlipidemia, unspecified; Z66 Do not resuscitate; I50.43 Acute on chronic combined systolic (congestive) and diastolic (congestive) heart failure; R63.4 Abnormal weight loss; T46.0X5A Adverse effect of cardiac-stimulant glycosides and drugs of similar action, initial encounter; D50.9 Iron deficiency anemia, unspecified; R00.1 Bradycardia, unspecified; M19.90 Unspecified osteoarthritis, unspecified site; Z97.4 Presence of external hearing-aid; Z88.8 Allergy status to other drugs, medicaments and biological substances; Z91.018 Allergy to other foods; Y92.9 Unspecified place or not applicable
CPT/HCPCS: 36415; 71045; 71250; 80048; 80053; 81003; 81015; 82728; 83540; 83550; 83605; 83880; 84443; 84484; 85025; 86140; 87086; 93005; 96365; 99285; A9270-GY; G0378; J0456; J0696; J1650; J1756; J1940

== ENCOUNTER 2019-12-06 20:00 | Emergency (ER) | payer MEDICARE, BC ==
--- OUTSIDE RECORDS SUMMARY | 2019-12-06 20:17 | XMS REPORT ---
:1940 Author Organization [facility] Care Team Providers Name Role Phone Unavailable Unavailable Unavailable Problems Condition Condition Condition Status Onset Resolution Last Treating Comments Name Details Category Date Date Treatment Clinician Date Pneumonia, Pneumonia, Diagnosis Active Sonja unspecified unspecified - Wendela organism organism Allergies, Adverse Reactions, Alerts Allergy Name Allergy Status Severity Reaction(s) Onset Inactive Treating Comments Type Date Date Clinician chlorphenira Base Active Unknown Reaction 2017-11 Unknown mine Ingredient Unknown 1-15 Antihistamin Unknown Active Unknown Reaction Interface es - Unknown 6-14 Alkylamine Antihistamin Unknown Active Unknown Reaction Interface es - Unknown 6-14 Ethanolamine Antihistamin Unknown Active Unknown Reaction Interface es - Unknown 6-14 Ethylenediam ine Antihistamin Unknown Active Unknown Reaction Interface es - Unknown 6-14 Piperazine Antihistamin Unknown Active Unknown Reaction Interface es - Unknown 6-14 Piperidine diphenhydram Base Active Unknown Reaction 2017-11 Interface ine Ingredient Unknown 1-15 enoxaparin Base Active Unknown Reaction 2017-11 Interface Ingredient Unknown 1-15 heparin Base Active Unknown Reaction 2017-11 Interface Ingredient Unknown 1-15 loratadine Unknown Active Unknown Reaction 2017-11 Interface Unknown 1-15 rivaroxaban Base Active Unknown Reaction 2017-11 Interface Ingredient Unknown 1-15 warfarin Base Active Unknown Reaction 2017-11 Interface Ingredient Unknown 1-15 pepper Base Active Unknown Reaction Interface (genus Ingredient Unknown 6-14 Capsicum) Medications Ordered Filled Start Stop Current Ordering Indication Dosage Frequency Signature Comments Components Medication Medication Date Date Medication? Clinician (SIG) Name Name No Known No Known No None None None Medications Medications For This For This Patient Patient Procedures This patient has no known procedures. Results This patient has no known results.
--- OUTSIDE RECORDS SUMMARY | 2019-12-06 20:17 | XMS REPORT ---
:1940 Author Organization [facility] Care Team Providers Name Role Phone Unavailable Unavailable Unavailable Problems Condition Condition Condition Status Onset Resolution Last Treating Comments Name Details Category Date Date Treatment Clinician Date Pneumonia, Pneumonia, Diagnosis Active Amanda unspecified unspecified 2-04 Carrier RN organism organism Allergies, Adverse Reactions, Alerts Allergy [...]
--- OUTSIDE RECORDS SUMMARY | 2019-12-06 20:17 | XMS REPORT ---
:1940 Author Organization [facility] Care Team Providers Name Role Phone Unavailable Unavailable Unavailable Problems Condition Condition Condition Status Onset Resolution Last Treating Comments Name Details Category Date Date Treatment Clinician Date Pneumonia, Pneumonia, Diagnosis Active Sonja unspecified unspecified 1- Wendela organism organism Allergies, Adverse Reactions, Alerts [...]
--- OUTSIDE RECORDS SUMMARY | 2019-12-06 20:17 | XMS REPORT | Continuity of Care Document ---
:1940 External Reference #:[id number] Author Name Raiza Houser Care Team Providers Name Role Phone Velvet Lemon MD - Family Care Team Information [employer] [phone] Medicine Problems Active Problems Provider Date Mixed hyperlipidemia Gracy Mc M.D. Onset: 03/23/2014 Premature beats Gracy Mc M.D. Onset: 03/23/2014 [place] haemorrhagic telangiectasia syndrome Gracy Mc M.D. Onset: 2013 Aortic valve disorder Gracy Mc M.D. Onset: 08/23/2015 Essential hypertension Gracy cM M.D. Onset: 08/23/2015 Carotid artery occlusion Gracy [...] Result H/L Range Note Basic Metabolic 07/07/2019 [facility] Sodium 141 mmol/L Normal 135-145 Panel [address] [place] [address] [phone] Potassium 4.1 mmol/L Normal 3.5-5.0 Chloride 105 mmol/L Normal 101-111 Co2 Carbon Dioxide 33 mmol/L High 22-32 Anion Gap 3 mmol/L Normal 2-11 Glucose 108 mg/dL High 70-100 Blood Urea Nitrogen 17 mg/dL Normal 6-24 Creatinine 0.65 mg/dL Normal 0.51-0.95 BUN/Creatinine Ratio 26.2 High 8-20 Calcium 10.6 mg/dL High 8.6-10.3 Egfr Non- 88.4 >60 Egfr 106.9 >60 1 Basic Metabolic 06/07/2019 [facility] Sodium 143 mmol/L Normal 135-[address] [place] [address] [phone] Potassium 3.4 mmol/L Low 3.5-5.0 Chloride 99 mmol/L Low 101-111 Co2 Carbon Dioxide 35 mmol/L High 22-32 Anion Gap 9 mmol/L Normal 2-11 Glucose 96 mg/dL Normal 70-100 Blood Urea Nitrogen 15 mg/dL Normal 6-24 Creatinine 0.69 mg/dL Normal 0.51-0.95 BUN/Creatinine Ratio 21.7 High 8-20 Calcium 9.9 mg/dL Normal 8.6-10.3 Egfr Non- 82.5 >60 Egfr 99.8 >60 2 Laboratory test 06/07/2019 [facility] B-Type 743 pg/mL High <= [address] [place] [address] Peptide BNP [phone] Digoxin 0.9 ng/ml Normal 0.8-2.0 1 Because ethnic data is not always [...] dialysis) Procedures Date Code Description Status 11/21/2019 58957 ECHO Transthoracic, Real-Time 2D With Doppler And Color Completed Flow 11/21/2019 84436 ECHO Transthoracic, Real-Time 2D With Doppler And Color Completed Flow 08/04/2019 30942 EEG Recording Awake & Drowsy Completed 06/07/2019 59449 Holter Monitor Review (24 hr) review & interp only Completed Medical Devices Description No Information Available Encounters Type Date Location Provider Dx Diagnosis Office Visit 11/27/2019 [facility] Chris I78.0 Hereditary 1:00p [facility] Magdy, N.P. hemorrhagic telangiectasia R25.1 Tremor, unspecified R25.8 Other abnormal involuntary movements Office Visit 08/15/2019 [place] Chris I78.0 Hereditary 11:00a [facility] Magdy, N.P. hemorrhagic [facility] telangiectasia R25.1 Tremor, unspecified Office 07/12/2019 [facility] I78.0 Hereditary Visit 10:00a [facility]dez hemorrhagic telangiectasia R56.9 Unspecified convulsions R25.8 Other abnormal involuntary movements Office Visit 07/11/2019 2:00p [facility] Amanda S. I48.2 Chronic atrial Of [employer] Juan Pablo, N.P. 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 11/27/2019 R25.1 Tremor, unspecified Chris Curran, N.P. 11/27/2019 R25.8 Other abnormal involuntary movements Chris Curran, N.P. 11/21/2019 I35.0 Nonrheumatic aortic (valve) stenosis Gracy Mc M.D. 11/21/2019 I35.0 Nonrheumatic aortic (valve) stenosis Traveling [...] Other fractures of lower end of left Azar Pollard MD radius, subsequent encounter for closed fracture with routine healing 06/07/2019 I48.91 Unspecified atrial fibrillation Gracy Mc M.D. Plan of Treatment Future Appointment(s):12/05/2019 11:00 am - Amanda Almeida, N.P. at [facility]04/12/2020 2:45 pm - Jones Hernández M.D. at [facility]12/14/2019 3:40 pm - Gracy Mc M.D. at [facility]11/27/2019 - Chris Curran, N.P.I78.0 Hereditary hemorrhagic [id number] Tremor, unspecifiedFollow up:3 fympbvS31.8 Other abnormal involuntary movements Functional Status Description No Information Available Mental Status Description No Information Available Referrals Description No Information Available
[2019-12-06 20:53] LABS: ABS Basophils 0.1 10^3/ul (0-0.2); ABS Lymphocytes 0.5 10^3/ul (1.0-4.8); ABS Monocytes 0.9 10^3/ul (0-0.8); Eosinophil % 0.4 %; Hematocrit 32 % (35-47); Hemoglobin 10.1 g/dL (12.0-16.0); Lymphocyte % 4.9 %; Mean Corpuscular HGB Conc 32 g/dL (31-36); Mean Corpuscular Hemoglobin 24 pg (27-31); Mean Corpuscular Volume 75 fL (80-97); Mean Platelet Volume 8.1 fL (7.4-10.4); Nucleated Red Blood Cells % 0.1; Platelet Count 192 10^3/uL (150-450); Red Blood Count 4.25 10^6 /uL (3.70-4.87); Red Cell Distribution Width 22 % (10-15); White Blood Count 9.5 10^3/uL (3.5-10.8)
[2019-12-06 21:15] LABS: Albumin 3.1 g/dL (3.2-5.2); Albumin/Globulin Ratio 0.8 (1-3); BUN/Creatinine Ratio 41.9 (8-20); Calcium 10.7 mg/dL (8.6-10.3); EGFR African American 112.6 (>60); EGFR Non-African American 93.1 (>60); Potassium 4.6 mmol/L (3.5-5.0); Total Bilirubin 0.7 mg/dL (0.2-1.0); Total Protein 7.1 g/dL (6.4-8.9)
[2019-12-06 21:17] LABS: Troponin I 0.02 ng/mL (<0.03)
--- NOTE | 2019-12-06 21:42 | ED ---
HPI Cardiac - HPI Summary HPI Summary: Patient is a 79 y/o F w/ Hx of CHF, PNA, afib, and HHT who presents to [facility] via EMS with complaints of SOB. The patient had recently been worked [place] as an [place] [facility] [place] and was discharged 12/04/19. Patient has been experiencing SOB for the past day. EMS reports that the patient was 90% o2 saturation on RA, patient was placed on non-rebreather at her request and has had 100% o2 saturation. Fever, CP, edema, N/V/D are denied. Patient took 20 mg Lasix today. She notes that she is not on a blood thinner. She does not believe that she is on any antibiotics currently. Patient is a non-smoker. Home medications and allergies are reviewed. - History of Current Complaint Chief Complaint: EDShortnessOfBreath Stated Complaint: SHORT OF BREATH Hx Obtained From: Patient, EMS Onset/Duration: Still Present Timing: Constant Pain Intensity: 0 Pain Scale Used: 0-10 Numeric Associated Signs and Symptoms: Positive: Shortness of Breath, Other: - NEGATIVE - DIARRHEA. Negative: Chest Pain, Swelling, Fever, Nausea, Vomiting - Additional Pertinent History Primary Care Physician: PAULINO - Allergy/Home Medications Allergies/Adverse Reactions: Allergies Allergy/AdvReac Type Severity Reaction Status Date / Time pepper (genus Capsicum) AdvReac Sneezing Verified 11/24/19 11:34 all antihistamines AdvReac See Comment Uncoded 11/28/19 20:49 all blood thinners AdvReac See Comment Uncoded 11/28/19 20:49 PMH/Surg Hx/FS Hx/Imm Hx Endocrine/Hematology History: Reports: Other Endocrine/Hematological Disorders - epistaxis (HHT), Osler Telangiectasia Denies: Hx Anticoagulant Therapy, Hx Diabetes, Hx Sickle Cell Disease Cardiovascular History: Reports: Hx Atrial Fibrillation, Hx Congestive Heart Failure, Hx Coronary Artery Disease, Hx Hypercholesterolemia, Hx Hypertension - ON MEDS PT STATES CONTROLLED, Other Cardiovascular Problems/Disorders - POSTBED STITCHER-DR. GONZALEZ-TO SEE HER 11/22/19 Denies: Hx Pacemaker/ICD Respiratory History: Reports: Other Respiratory Problems/Disorders - HX OF EPISTAXIS Denies: Hx Asthma, Hx Chronic Obstructive Pulmonary Disease (COPD) GI History: Denies: Hx Cirrhosis, Other GI Disorders History: Denies: Hx Dialysis, Hx Renal Disease, Other Problems/Disorders Musculoskeletal History: Reports: Hx Arthritis Denies: Hx Osteoporosis, Other Musculoskeletal History Sensory History: Reports: Hx Cataracts - bilat surgery, Hx Hearing Aid - bilateral, Hx Hearing Problem Denies: Hx Contacts or Glasses Opthamlomology History: Reports: Hx Cataracts - bilat surgery Denies: Hx Contacts or Glasses Neurological History: Denies: Hx Dementia, Hx Headaches, Hx Seizures, Hx Transient Ischemic Attacks (TIA), Other Neuro Impairments/Disorders Psychiatric History: Denies: Hx Anxiety, Hx Depression, Hx Panic Disorder - Cancer History Hx Chemotherapy: No - Surgical History Surgery Procedure, Year, and Place: SEVERAL NOSE SURGERIES FOR EPISTAXIS, [facility] + . PARTIAL HYSTERECTOMY IN EARLY , [place]. left Hip Fx with repair . bilat cataract surgery with IOL Hx Anesthesia Reactions: No Infectious Disease History: No Infectious Disease History: Denies: Traveled Outside the [place] in Last 30 Days - Family History Known Family History: Negative: Hypertension, Diabetes - Social History Alcohol Use: Daily Alcohol Amount: 1 GLASS WINE/NIGHT Hx Substance Use: No Substance Use Type: Reports: None Hx Tobacco Use: No Smoking Status (MU): Never Smoked Tobacco Have You Smoked in the Last Year: No Review of Systems Negative: Fever Negative: Chest Pain Positive: Shortness Of Breath Negative: Vomiting, Diarrhea, Nausea Negative: Edema All Other Systems Reviewed And Are Negative: Yes Physical Exam - Summary Physical Exam Summary: Constitutional: Well-developed, Well-nourished, Alert. (-) Distressed Skin: Warm, Dry HENT: Normocephalic; Atraumatic Eyes: Conjunctiva normal Neck: Musculoskeletal ROM normal neck. (-) JVD, (-) Stridor, (-) Tracheal deviation Cardio: Rhythm regular, rate normal, Heart sounds normal; Intact distal pulses; Radial pulses are 2+ and symmetric. (-) Murmur Pulmonary/Chest wall: Decreased breath sounds at right lung base, but patient is able to speak in full sentences (-) Respiratory distress, (-) Wheezes, (-) Rales Abd: Soft, (-) tenderness, (-) Distension, (-) Guarding, (-) Rebound Musculoskeletal: (-) Edema Lymph: (-) Cervical adenopathy Neuro: Alert, Oriented x3 Psych: Mood and affect Normal Triage Information Reviewed: Yes Vital Signs On Initial Exam: Initial Vitals Pulse Resp Pulse Ox 77 22 100 12/06/19 20:11 12/06/19 20:11 12/06/19 20:11 Vital Signs Reviewed: Yes Procedures - Sedation Patient Received Moderate/Deep Sedation with Procedure: No Diagnostics - Vital Signs Vital Signs Temp Pulse Resp BP Pulse Ox 12/06/19 20:15 98.4 F 63 16 156/62 95 12/06/19 20:14 72 22 156/62 100 12/06/19 20:11 77 22 100 - Laboratory Lab Results: Lab Results 12/06/19 12/06/19 12/06/19 Range/Units 20:45 20:45 20:45 WBC 9.5 (3.5-10.8) 10^3/uL RBC 4.25 (3.70-4.87) 10^6 /uL Hgb 10.1 L (12.0-16.0) g/dL Hct 32 L (35-47) % MCV 75 L (80-97) fL MCH 24 L (27-31) pg MCHC 32 (31-36) g/dL RDW 22 H (10-15) % Plt Count 192 (150-450) 10^3/uL MPV 8.1 (7.4-10.4) fL Neut % (Auto) 84.2 % Lymph % (Auto) 4.9 % [place] % (Auto) 9.7 % Eos % (Auto) 0.4 % Baso % (Auto) 0.8 % Absolute Neuts (auto) 8.0 H (1.5-7.7) 10^3/ul Absolute Lymphs (auto) 0.5 L (1.0-4.8) 10^3/ul Absolute Monos (auto) 0.9 H (0-0.8) 10^3/ul Absolute Eos (auto) 0.0 (0-0.6) 10^3/ul Absolute Basos (auto) 0.1 (0-0.2) 10^3/ul Absolute Nucleated RBC 0.0 10^3/ul Nucleated RBC % 0.1 Sodium 136 (135-145) mmol/L Potassium 4.6 (3.5-5.0) mmol/L Chloride 99 L (101-111) mmol/L Carbon Dioxide 33 H (22-32) mmol/L Anion Gap 4 (2-11) mmol/L BUN 26 H (6-24) mg/dL Creatinine 0.62 (0.51-0.95) mg/dL Est GFR ( Amer) 112.6 (>60) Est GFR (Non-Af Amer) 93.1 (>60) BUN/Creatinine Ratio 41.9 H (8-20) Glucose 111 H (70-100) mg/dL Calcium 10.7 H (8.6-10.3) mg/dL Total Bilirubin 0.70 (0.2-1.0) mg/dL AST 18 (13-39) U/L ALT 9 (7-52) U/L Alkaline Phosphatase 83 (34-104) U/L Troponin I 0.02 (<0.03) ng/mL B-Natriuretic Peptide 1298 H (<=100) pg/mL Total Protein 7.1 (6.4-8.9) g/dL Albumin 3.1 L (3.2-5.2) g/dL Globulin 4.0 (2-4) g/dL Albumin/Globulin Ratio 0.8 L (1-3) Result Diagrams: 12/06/19 20:45 12/06/19 20:45 Lab Statement: Any lab studies that have been ordered have been reviewed, and results considered in the medical decision making process. - Radiology CXR Radiology Interpretation Completed By: ED Physician Summary of Radiographic Findings: Right pleural effusion which appears larger compared to prior CXR, pending official report. - EKG 2020 Cardiac Rate: Other Rate - afib with rate of 77 BPM EKG Rhythm: Atrial Fibrillation EKG Comparison: No Significant Change - unchanged from EKG done 11/28/19 Summary of EKG Findings: EKG showed afib with rate of 77 BPM, ST elevations in V1-V5, unchanged from EKG done 11/28/19. ED physician has reviewed and interpreted this EKG. Disposition - Course Course Of Treatment: Patient is here with continued shortness of breath after being discharged from admission 2 days ago with that chief complaint. Patient was found to be in heart failure with pleural effusions and pulmonary edema bilaterally. Patient is on torsemide 20 mg every day for that. Patient's had no change in her symptoms they just have not gone away. Patient had motor performed which showed an elevated BNP at her baseline. Patient had a chest x- ray which showed a right pleural effusion and pulmonary edema. This looks grossly unchanged compared to prior. Patient was borderline hypoxemic but was satting 90% on room air. Patient had her torsemide dose increased to 40 mg per day and discharged with cardiology follow-up which family was comfortable with - Diagnoses Provider Diagnoses: CHF (congestive heart failure), Fluid overload Discharge ED - Sign-Out/Discharge Documenting (check all that apply): Patient Departure - discharge - Discharge Plan Condition: Stable Disposition: HOME Patient Education Materials: Heart Failure (ED) Referrals: Gracy Gonzalez MD [Medical Doctor] - 1 Day Velvet Lemon MD [Primary Care Provider] - 1 Day Additional Instructions: START TAKE TORSEMIDE 40 MG. CALL YOUR POSTBED STITCHER IN THE MORNING TO SCHEDULE A SOONER APPOINTMENT. GO TO THE PHARMACY AND BUY A PULSE OXIMETER TO MONITOR YOUR OXYGEN SATURATION ONCE DAILY. PLEASE RETURN TO ED FOR SEVERE DIFFICULTY BREATHING, CHEST PAIN, OR OTHER CONCERNING SYMPTOMS. - Billing Disposition and Condition Condition: STABLE Disposition: Home - Attestation Statements Document Initiated by Belem: Yes Documenting Scribe: KELLEY MONAE Provider For Whom Belem is Documenting (Include Credential): RUIZ GARZA MD Scribe Attestation: IKELLEY, scribed for RUIZ GARZA MD on 12/09/19 at 1324. Scribe Documentation Reviewed: Yes Provider Attestation: The documentation as recorded by the KELLEY golden accurately reflects the service I personally performed and the decisions made by me, RUIZ GARZA MD Status of Scribe Document: Viewed
[2019-12-06 22:14] VITALS: BP 169/70
== END 2019-12-06 22:05 | disposition home or self-care (01) ==
LOC: ED 20:00
DX: I11.0 Hypertensive heart disease with heart failure (principal); I50.9 Heart failure, unspecified; J90 Pleural effusion, not elsewhere classified; I48.91 Unspecified atrial fibrillation; I25.10 Atherosclerotic heart disease of native coronary artery without angina pectoris; E78.00 Pure hypercholesterolemia, unspecified; Z90.711 Acquired absence of uterus with remaining cervical stump; Z79.899 Other long term (current) drug therapy; Z88.8 Allergy status to other drugs, medicaments and biological substances
CPT/HCPCS: 36415; 71045; 80053; 83880; 84484; 85025; 93005; 99284

== ENCOUNTER 2019-12-07 11:27 | Inpatient (IN) | payer MEDICARE, BC ==
--- OUTSIDE RECORDS SUMMARY | 2019-12-07 11:36 | XMS REPORT ---
:1940 Author Organization [facility] Care Team Providers Name Role Phone Unavailable [...]
--- NOTE | 2019-12-07 12:13 | ED ---
Shortness of Breath - HPI Summary HPI Summary: The patient is a 79 y/o male arriving by ambulance to [facility] accompanied by with a chief complaint of SOB worsening since last night. Her reports that she has been suffering from CHF exacerbations since last summer with admissions. Her most recent admission was on 11/28/2019 for possible pneumonia, and she was discharged on 12/04/2019 with likely CHF exacerbation. Last night, she was in the ED for similar symptoms to todays episode, where she was short of breath with labored breathing, observed by . After being discharged home, her O2 worsened. EMS arrived this morning to find the patients O2 sat in the 70s%. The patient does not have O2 at home. The patient states that the O2 helps her breathing. She denies CP or cough. No anticoagulants. PMHx: frequent epistaxis, HHT, atrial fibrillation, CAD, HLD, HTN. Nonsmoker, daily EtOH, no substance use. Medications reviewed. Allergies noted. - History of Current Complaint Chief Complaint: EDShortnessOfBreath Time Seen by Provider: 12/07/19 11:57 Hx Obtained From: Patient, Family/Statement Clerks Manager - Onset/Duration: Lasting Hours, Still Present Current Severity: Moderate Dyspnea At: Rest Alleviating Factors: Oxygen Associated Signs & Symptoms: Negative Related History: Similar Episode - CHF dx, Healthcare Acquired: Inpatient Status Within Last 30 Days - Allergy/Home Medications Allergies/Adverse Reactions: Allergies Allergy/AdvReac Type Severity Reaction Status Date / Time pepper (genus Capsicum) AdvReac Sneezing Verified 11/24/19 11:34 all antihistamines AdvReac See Comment Uncoded 11/28/19 20:49 all blood thinners AdvReac See Comment Uncoded 11/28/19 20:49 Home Medications: Home Medications Verapamil TAB* [Calan TAB*] 40 mg PO BID 12/07/19 [History Confirmed 12/07/19] PMH/Surg Hx/FS Hx/Imm Hx Endocrine/Hematology History: Reports: Other Endocrine/Hematological Disorders - epistaxis (HHT), Osler Telangiectasia Denies: Hx Anticoagulant Therapy, Hx Diabetes, Hx Sickle Cell Disease Cardiovascular History: Reports: Hx Atrial Fibrillation, Hx Congestive Heart Failure, Hx Coronary Artery Disease, Hx Hypercholesterolemia, Hx Hypertension - ON MEDS PT STATES CONTROLLED, Other Cardiovascular Problems/Disorders - 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/19 Denies: Hx Pacemaker/ICD Respiratory History: Reports: Other Respiratory Problems/Disorders - HX OF EPISTAXIS Denies: Hx Asthma, Hx Chronic Obstructive Pulmonary Disease (COPD) GI History: Denies: Hx Cirrhosis, Other GI Disorders History: Denies: Hx Dialysis, Hx Renal Disease, Other Problems/Disorders Musculoskeletal History: Reports: Hx Arthritis Denies: Hx Osteoporosis, Other Musculoskeletal History Sensory History: Reports: Hx Cataracts - bilat surgery, Hx Hearing Aid - bilateral, Hx Hearing Problem Denies: Hx Contacts or Glasses Opthamlomology History: Reports: Hx Cataracts - bilat surgery Denies: Hx Contacts or Glasses Neurological History: Denies: Hx Dementia, Hx Headaches, Hx Seizures, Hx Transient Ischemic Attacks (TIA), Other Neuro Impairments/Disorders Psychiatric History: Denies: Hx Anxiety, Hx Depression, Hx Panic Disorder - Cancer History Hx Chemotherapy: No - Surgical History Surgical History: Yes Surgery Procedure, Year, and Place: SEVERAL NOSE SURGERIES FOR EPISTAXIS, [facility] + . PARTIAL HYSTERECTOMY IN EARLY , [place]. left Hip Fx with repair . bilat cataract surgery with IOL Hx Anesthesia Reactions: No Infectious Disease History: No Infectious Disease History: Denies: Traveled Outside the [place] in Last 30 Days - Family History Known Family History: Negative: Hypertension, Diabetes - Social History Alcohol Use: Daily Alcohol Amount: 1 GLASS WINE/NIGHT Hx Substance Use: No Substance Use Type: Reports: None Hx Tobacco Use: No Smoking Status (MU): Never Smoked Tobacco Have You Smoked in the Last Year: No Review of Systems Negative: Chest Pain Positive: Shortness Of Breath. Negative: Cough All Other Systems Reviewed And Are Negative: Yes Physical Exam - Summary Physical Exam Summary: Constitutional: Well-developed, Well-nourished, Alert. Appears fatigued. (-) Distressed Skin: Warm, Dry HENT: Normocephalic; Atraumatic Eyes: Conjunctiva normal Neck: Musculoskeletal ROM normal neck. (-) JVD, (-) Stridor, (-) Tracheal deviation Cardio: Rhythm regular, rate normal, Very loud heart systolic murmur; Intact distal pulses; The pedal pulses are 2+ and symmetric. Radial pulses are 2+ and symmetric. Pulmonary/Chest wall: Diffuse air entry throughout, Decreased breath sounds on right, Poor effort, Bilateral rales worse on right than left, Quickly becames hypoxic in the 80s when the oxygen mask is removed, (-) Respiratory distress, (- ) Wheezes Abd: Soft, (-) tenderness, (-) Distension, (-) Guarding, (-) Rebound Musculoskeletal: (-) Edema Neuro: Alert, Oriented x3 Psych: Mood and affect Normal Triage Information Reviewed: Yes Vital Signs On Initial Exam: Initial Vitals Temp Pulse Resp BP Pulse Ox 98.1 F 77 28 121/58 97 12/07/19 11:47 12/07/19 11:47 12/07/19 11:47 12/07/19 11:47 12/07/19 11:47 Vital Signs Reviewed: Yes - [place] Coma Scale Best Eye Response: 4 - Spontaneous Best Motor Response: 6 - Obeys Commands Best Verbal Response: 5 - Oriented Coma Scale Total: 15 Procedures - Sedation Patient Received Moderate/Deep Sedation with Procedure: No Diagnostics - Vital Signs Vital Signs Temp Pulse Resp BP Pulse Ox 12/07/19 11:47 98.1 F 77 28 121/58 97 - Laboratory Result Diagrams: 12/07/19 12:34 12/07/19 12:34 Lab Statement: Any lab studies that have been ordered have been reviewed, and results considered in the medical decision making process. - Radiology CXR Radiology Interpretation Completed By: Radiologist Summary of Radiographic Findings: Impression: Right greater than left pleural effusions with bibasilar atelectasis versus consolidation, slightly progressed from December 06, 2019. ED physician has reviewed this report. - CT Brain CT CT Interpretation Completed By: Radiologist Summary of CT Findings: Impression: No acute intracranial pathology. Chronic small vessel ischemic change. ED physician has reviewed this report. - EKG 1524 Cardiac Rate: NL - 68 BPM EKG Rhythm: Atrial Fibrillation Summary of EKG Findings: An EKG at 1524 reveals atrial fibrillation at 68 BPM, nonspecific ST, T wave abnormalities, no significant change from prior, no STEMI. ED physician has reviewed and interpreted this EKG. Re-Evaluation - Re-Evaluation First Eval Re-Evaluation Time: 13:15 Comment: Patient and family aware of plan for admission. Course/Dx - Course Course Of Treatment: 79 y/o female who has a history of CHF and atrial fibrillation presenting with worsening SOB since last night, when she was seen in the ED, and she was recently discharged from the hospital with stay from 11/28 -12/04 with CHF exacerbation and possible PNA. No anticoagulants secondary to history of HHT. Physical exam is significant for diffuse air entry throughout, the right lung has decreased breath sounds, poor effort, bilateral rales worse on right than left, no wheezing, no respiratory distress, appearing fatigued, very loud heart systolic murmur. She quickly becomes hypoxic in the 80s when the oxygen mask is removed. Blood work reveals slight anemia, absolute lymphocytes of 0.3, INR of 1.34, carbon dioxide of 34, BUN of 30, calcium of 11.2, troponin of 0.03, and BNP of >1300. An EKG at 1524 reveals atrial fibrillation at 68 BPM, nonspecific ST, T wave abnormalities, no significant change from prior, no STEMI. CXR reveals right greater than left pleural effusions with bibasilar atelectasis versus consolidation worsening since yesterday. Brain CT is negative for acute findings but shows chronic changes. The patient is experiencing progressively worsening CHF in acute exacerbation. Patients troponin chronically fluctuates between 0.02 to 0.04, so I do not believe this is an acute cardiac event, but it is indicative of worsening acute on chronic heart failure with worsening right-sided pleural effusion with new O2 demands. She is appropriate for admission. Dr. Reddy from the hospitalist services accepts the patient for admission. Patient and agreeable with plan. - Diagnoses Provider Diagnoses: CHF (congestive heart failure) - Physician Notifications Discussed Care of Patient With: Trang Reddy - hospitalist Time Discussed With Above Provider: 13:10 Instructed by Provider To: Other - I discussed the patients case with Dr. Reddy , who accepts the patient for admission. Discharge ED - Sign-Out/Discharge Documenting (check all that apply): Patient Departure - Patient accepted for admission by Dr. Reddy. - Discharge Plan Condition: Stable Disposition: ADMITTED TO [facility] - Attestation Statements Document Initiated by Scribe: Yes Documenting Scribe: Cheryl Cornejo Provider For Whom Belem is Documenting (Include Credential): Dr. Trung Lebron MD Scribe Attestation: Cheryl Mayorga, scribed for Dr. Trung Lebron MD on 12/07/19 at 1915. Status of Scribe Document: Ready
[2019-12-07 12:44] LABS: ABS Basophils 0.1 10^3/ul (0-0.2); ABS Lymphocytes 0.3 10^3/ul (1.0-4.8); ABS Monocytes 0.6 10^3/ul (0-0.8); ABS Neutrophils 8.8 10^3/ul (1.5-7.7); Eosinophil % 0.1 %; Hematocrit 32 % (35-47); Hemoglobin 10.1 g/dL (12.0-16.0); Lymphocyte % 3.2 %; Mean Corpuscular HGB Conc 31 g/dL (31-36); Mean Corpuscular Hemoglobin 24 pg (27-31); Mean Corpuscular Volume 76 fL (80-97); Mean Platelet Volume 8.4 fL (7.4-10.4); Platelet Count 189 10^3/uL (150-450); Red Blood Count 4.25 10^6 /uL (3.70-4.87); Red Cell Distribution Width 22 % (10-15); White Blood Count 9.8 10^3/uL (3.5-10.8)
[2019-12-07 12:56] LABS: Activated Partial Thrombo Time 34.2 seconds (26.0-38.0); INR 1.34 (0.82-1.09)
[2019-12-07 13:00] LABS: BUN/Creatinine Ratio 46.9 (8-20); Calcium 11.2 mg/dL (8.6-10.3); EGFR African American 108.6 (>60); EGFR Non-African American 89.7 (>60); Potassium 4.5 mmol/L (3.5-5.0)
[2019-12-07 13:05] LABS: Troponin I 0.03 ng/mL (<0.03)
[2019-12-07] MEDS ORDERED: Furosemide IV* 10 MG/ML VIAL (40 MG) IV ONE (15:11)
[2019-12-07] MEDS ORDERED: Iron Sucrose* 200 MG in NS 0.9% 100 ML* 100 ML IVPB ONE (16:18)
[2019-12-07 16:27] LABS: LDH 135 U/L (140-271)
[2019-12-07 16:30] LABS: ALT 10 U/L (7-52); AST 22 U/L (13-39); Albumin/Globulin Ratio 0.8 (1-3); Alkaline Phosphatase 80 U/L (34-104); Calcium 10.9 mg/dL (8.6-10.3); Globulin 3.7 g/dL (2-4); Indirect Bilirubin 0.5 mg/dL (0.3-1.0); Total Protein 6.7 g/dL (6.4-8.9)
[2019-12-07 16:34] LABS: Troponin I 0.03 ng/mL (<0.03)
--- NOTE | 2019-12-07 16:47 | HP ---
History of Present Illness - History of Present Illness Reason for Visit: Shortness of Breath History of Present Illness: Aminah Hensley is a 79y/o female with history of atrial fibrillation not on anticoagulation, hereditary hemorrhagic telangiectasis, HTN, moderate aortic stenosis and HFpEF, presented to ED today for shortness of breath. She was [place] [facility] [place], was given iv diuretics during admission, noticed improvement and got discharged on torsemide 20mg daily on 12/03/19. Patient started to feel SOB recurred second day after discharge, and gradually getting worse. She is compliant to torsemide 20mg daily. She had been failure to thrive since Jun 2019 admission, lost weight from 130lb to 108lb gradually, she is a picky eater but in general her appetite is not bad according to , but her weight still went down despite her regular meal and ensure supplement. She has no fever, chills, night sweats, URTI sx other than SOB, she is a never smoker due to allergy to tobacco. She denied swelling, abdominal distention. She is uptodate to all her cancer screening including colonoscopy and mammogram , done in [place]. raised up that she has a liver biopsy done in [facility] last year for some abnormal imaging findings to rule out cancer, it turned out to be normal. - Past Medical History Past Medical History: 1. Heart failure with preserved ejection fraction 2. Atrial fibrillation 3. Iron def anemia 4. Hypertension 5. Moderate aortic stenosis 6. hyperlipidemia 7. Questionable coronary artery disease per medical record - Past Surgical History Past Surgical History: 1.Partial hysterectomy 2. Multiple nose cauteries 3. Left hip ORIF - Past Family History Past Family History: Father from colon cancer at age of 80, mother in 90s - Past Social History Past Social History: , lives with , 3 children. 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 No tobacco use, drinks 1 glass of wine daily. Her surrogate medical decision maker is her Leonard Hensley. Medications: Home Medications Medication Instructions Recorded Confirmed Type Torsemide TAB* [Demadex 20 MG*] 20 mg PO QAM 07/09/19 12/07/19 History Cholecalciferol TAB* [Vitamin D 1,000 unit PO DAILY 11/28/19 12/07/19 History TAB*] Potassium Chloride [Klor-Con M20] 20 meq PO BID 11/28/19 12/07/19 History Ferrous Sulfate TAB* 325 mg PO DAILY tab 12/01/19 12/07/19 Rx Mirtazapine TAB* [Remeron TAB*] 7.5 mg PO BEDTIME #30 tab 12/01/19 12/07/19 Rx Metoprolol Succinate XL TAB* 75 mg PO BID tab.xl 12/03/19 12/07/19 Rx [Toprol XL TAB*] Verapamil TAB* [Calan TAB*] 40 mg PO BID 12/07/19 12/07/19 History Allergies/Adverse Reactions: Allergies Allergy/AdvReac Type Severity Reaction Status Date / Time pepper (genus Capsicum) AdvReac Sneezing Verified 11/24/19 11:34 all antihistamines AdvReac See Comment Uncoded 11/28/19 20:49 all blood thinners AdvReac See Comment Uncoded 11/28/19 20:49 Review of Systems - Review of Systems Constitutional: Negative: Fever, Chills, Sweats, Weakness, Malaise, Other Eyes: Negative: Pain, Vision Change, Conjunctivae Inflammation, Eyelid Inflammation, Redness, Other ENT: Negative: Ear Pain, Ear Discharge, Nose Pain, Nose Discharge, Nose Congestion, Mouth Pain, Mouth Swelling, Throat Pain, Throat Swelling, Other Respiratory: Positive: Shortness of Breath. Negative: Cough, Dry, Hemoptysis, SOB with Excertion, Pleuritic Pain, Sputum, Wheezing Cardiovascular: Negative: Chest Pain, Palpitations, Orthopnea, Paroxysmal Noc. Dyspnea, Edema, Light Headedness, Other Gastrointestinal: Negative: Nausea, Vomiting, Abdominal Pain, Diarrhea, Constipation, Melena, Hematochezia, Other Genitourinary: Negative: Dysuria, Frequency, Incontinence, Hematuria, Retention , Other Musculoskeletal: Negative: Neck Pain, Shoulder Pain, Arm Pain, Back Pain, Hand Pain, Leg Pain, Foot Pain, Other Skin: Negative: Rash, Lesions, Goyo, Bruising, Other Neurological: Negative: Weakness, Numbness, Incoordination, Change in Speech, Confusion, Seizures, Other Exam Vital Signs: Vital Signs (72 hours) 12/07/19 12/07/19 12/07/19 11:47 15:54 16:29 Temperature 98.1 F 98.2 F 97.9 F Pulse Rate 77 72 72 Respiratory 28 15 20 Rate Blood Pressure 121/58 115/53 117/30 (mmHg) O2 Sat by Pulse 97 98 97 Oximetry Exam: Appearance: cachectic looking woman in NAD, drows Ears/Nose/Mouth/Throat: Clear Oropharnyx, Mucous Membranes Moist, flat tongue Neck: no cervical lymph nodes palpated Respiratory: Symmetrical Chest Expansion and Respiratory Effort, decreased air entry of right lower lobe Cardiovascular: NL Sounds; No Murmurs; No JVD, RRR Abdominal: NL Sounds; No Tenderness; No Distention, mild Hepatosplenomegaly and mild spleenomegaly Extremities: No Edema, no cyanosis Neurological: drowsy, not oriented to time, place, person. Able to tell her name and date of Result Diagrams: 12/07/19 12:34 12/07/19 12:34 Additional Lab and Data: BNP> 1300 Calcium 10.9 Albumin 3.0 trop 0.03 EKG Data: WKG: atrial fibrillation, LVH Assessment/Plan - Assessment/Plan Assessment: noelle Hensley is a 79y/o female with history of atrial fibrillation not on anticoagulation, hereditary hemorrhagic telangiectasis, HTN, moderate aortic stenosis and HFpEF, presented to ED today for shortness of breath, found to have right large pleural effusion and high BNP, likely due to acute exacerbation of heart failure with preserved ejection function. Of note, she also had significant weight loss with hypercalcemia which is concerning for malignancy proccess. Hospitalist was called to admit the patient to general floor, we will admit her in med-tele floor. Plan: 1. Right Pleural effusion - likely the direct cause of SOB this visit. - pleural effusion increasing overtime since last admission despite torsemide 20mg daily at home - differential needs to be broadened considering her pleural effusion not responsive to diuretics, weight loss history, and hypercalcemia. maligancny needs to be ruled out - consider thoracocentesis tomorrow for both diagnostic and therapeutic purposes. - add on liver function, LDH today - wean down O2, keep spO2 >92% 2. Heart failure with preserved ejection fracture (moderate ) - last echo scan done in Nov showing EF 55-60%, no valve abnormality - iv furosemide 40mg for now - monitor urine i/o, daily weight closely - if bp able to tolerate, considering adding ACEI and spironolactone - check electrolytes and mg daily while on diuretics 2. Iron deficinecy anemia - iron study done last admission - iv venofer once 4, Hypercalcemia - repeat calcium , pth today - consider SPEP, UPEP if calcium not downtrending. - concerning for malignant process, but could from dehydration, will trend calcium level overnight 5. hereditary hemorrhagic telangiectasia -no GI bleeding or nose bleeding , hb stable 6.trop elevation - will trend trop level - likely demand ischemic 7. DVT prophylaxis - SCD in view of bad side effects with blood thinner Attestation Documenting Resident: Michaela Ferrari Supervising Physician: Miller Mcmahon Attestation: This service has been performed in part by a resident under the direction of a teaching physician.I, Miller Mcmahon, performed the service, or was physically present during the critical, or collazo portions of the service, furnished by the resident. I participated in the management of the patient.
[2019-12-07] MEDS: Mirtazapine TAB* 15 MG PO SCH (20:26)
[2019-12-07] MEDS: Metoprolol Succinate XL TAB* 50 MG PO SCH (20:26)
[2019-12-08] MEDS: Metoprolol Succinate XL TAB* 50 MG PO SCH (07:55)
[2019-12-08] MEDS: Furosemide IV* 10 MG/ML VIAL (40 MG) IV SCH (07:55)
[2019-12-08 08:09] LABS: ABS Basophils 0.1 10^3/ul (0-0.2); ABS Lymphocytes 0.4 10^3/ul (1.0-4.8); ABS Neutrophils 7.2 10^3/ul (1.5-7.7); Eosinophil % 0.5 %; Hematocrit 32 % (35-47); Lymphocyte % 4.5 %; Mean Corpuscular HGB Conc 31 g/dL (31-36); Mean Corpuscular Hemoglobin 24 pg (27-31); Mean Corpuscular Volume 77 fL (80-97); Mean Platelet Volume 8.5 fL (7.4-10.4); Nucleated Red Blood Cells % 0.1; Platelet Count 173 10^3/uL (150-450); Red Blood Count 4.19 10^6 /uL (3.70-4.87); Red Cell Distribution Width 22 % (10-15); White Blood Count 8.7 10^3/uL (3.5-10.8)
[2019-12-08 08:20] LABS: BUN/Creatinine Ratio 33.3 (8-20); Calcium 10.2 mg/dL (8.6-10.3); EGFR African American 104.8 (>60); EGFR Non-African American 86.6 (>60); Magnesium 1.9 mg/dL (1.9-2.7); Potassium 4.2 mmol/L (3.5-5.0)
[2019-12-08] MEDS ORDERED: Ferrous Sulfate TAB* 325 MG PO SCH (09:00)
[2019-12-08] MEDS ORDERED: Cholecalciferol TAB* 1000 UNITS PO SCH (09:00)
--- NOTE | 2019-12-08 14:10 | PN ---
Subjective Date of Service: 12/08/19 Interval History: Patient is still lethargic in general, I couldn't understand her very well as she spoke in a very low voice. She was too weak to sit up on her own. Overnight , she desaturated on room air, and put back on 3L O2. Objective Active Medications: Furosemide (Lasix Iv*) 40 mg IV DAILY [facility] Last Admin: 12/08/19 07:55 Dose: 40 mg Metoprolol Succinate (Toprol Xl Tab*) 75 mg PO BID [facility] Last Admin: 12/08/19 07:55 Dose: 75 mg Mirtazapine (Remeron Tab*) 7.5 mg PO BEDTIME [facility] Last Admin: 12/07/19 20:26 Dose: 7.5 mg Vital Signs - 8 hr 12/08/19 12/08/19 12/08/19 07:15 07:28 11:13 Temperature 98.3 F Pulse Rate 94 Respiratory 24 22 Rate Blood Pressure 129/50 108/60 (mmHg) O2 Sat by Pulse 97 Oximetry 12/08/19 11:15 Temperature 97.8 F Pulse Rate 100 Respiratory 22 Rate Blood Pressure (mmHg) O2 Sat by Pulse 97 Oximetry Oxygen Devices in Use Now: Simple Face Mask Exam: Appearance: cachectic looking woman in NAD, lethargic in general, speaking in low voice Ears/Nose/Mouth/Throat: Clear Oropharnyx, Mucous Membranes Moist, flat tongue Neck: no cervical lymph nodes palpated Respiratory: Symmetrical Chest Expansion and Respiratory Effort, decreased air entry of right lower lobe Cardiovascular: systolic murmur in LUSB; No JVD, RRR Abdominal: NL Sounds; No Tenderness; No Distention, mild Hepatosplenomegaly and mild spleenomegaly Extremities: No Edema, no cyanosis Neurological: drowsy, not oriented to time, place, person. Able to tell her name and date of Result Diagrams: 12/08/19 07:40 12/08/19 17:02 Additional Lab and Data: BNP> 1300 Calcium 10.9 Albumin 3.0 trop 0.03 EKG Data: WKG: atrial fibrillation, LVH Assess/Plan/Problems-Billing Assessment: Aminah Hensley is a 79y/o female with history of atrial fibrillation not on anticoagulation, hereditary hemorrhagic telangiectasis, HTN, moderate aortic stenosis and HFpEF, presented to ED today for shortness of breath, found to have right large pleural effusion and high BNP, likely due to acute exacerbation of heart failure with preserved ejection function as well aortic stenosis and pulmonary hypertension. Her course complicated by hypercalcemia likely primary hyperparathyroidism. - Patient Problems (1) Acute on chronic heart failure with preserved ejection fraction (HFpEF) Current Visit: No Status: Acute Code(s): I50.33 - ACUTE ON CHRONIC DIASTOLIC (CONGESTIVE) HEART FAILURE SNOMED Code(s): 087113499 Comment: - CT chest showing moderate right pleural effusion - No need for repeat echo at this time - wean down metoprolol as it reduce contractility and worses HFpEF - continue iv lasix, add spironolactone low dose - consider thoracocentesis to rule out other causes of pleural effusion (like malignancy) when she is better and able to tolerate procedure (2) Primary hyperparathyroidism Current Visit: Yes Status: Acute Code(s): E21.0 - PRIMARY HYPERPARATHYROIDISM SNOMED Code(s): 10681253 Comment: - new diagnosis, hypercalcemia with high pth - need to evaluate urine calcium excretion, bone loss, creatinine to decide whether surgical intervention needed - monitor calcium level (3) Afib Current Visit: No Status: Acute Code(s): I48.91 - UNSPECIFIED ATRIAL FIBRILLATION SNOMED Code(s): 40822843 Comment: - Rate 90-100 - Not on AC d/t recurrent epistaxis - Continue metoprolol (decrease), if bp tolerate, continue home med verapamil. (4) Anemia Current Visit: No Status: Acute Code(s): D64.9 - ANEMIA, UNSPECIFIED SNOMED Code(s): 342752550 Comment: - iron deficiency - Received iron sucrose x1 - Continue ferrous sulfate (5) Hereditary hemorrhagic telangiectasia Current Visit: No Status: Chronic Code(s): I78.0 - HEREDITARY HEMORRHAGIC TELANGIECTASIA SNOMED Code(s): 89423939 Comment: - Precludes anti-platelets and anticoagulants. (6) DVT prophylaxis Current Visit: No Status: Acute Code(s): EIT5884 - SNOMED Code(s): 475826665 Comment: - SCDs Status and Disposition: Inpatient Medicine Attestation Documenting Resident: Michaela Ferrari Supervising Physician: Gisela Choi Attending/Supervising Physician Comment: 79W with HFpEF, afib not on AC given hereditary hemorrhagic telangiectasis and recurrent epistaxis, mod aortic stenosis, presents with dyspnea and is found with large pleural effusion. Patient overall severely deconditioned and losing weight. Noted to have chronic hypercalcemia - still 11 today after correction, with elevated PTH concerning for pHPT. 24-hr urine collection to finish tomorrow. Also with somnolence and AMS today. ABG reveling CO2 retention. First blood gas here, but pt has had elevated bicarb intermittently since April. While without h/ o obstructive lung disease, it is possible that her pleural effusion is decreasing tidal volume and therefore ventilation. Will transfer to ICU for new BiPAP need, pending thora by Dr. Looney tomorrow. Likely she can return to the [facility] floors on the resident service after the procedure. Attestation: This service has been performed in part by a resident under the direction of a teaching physician.I, Gisela Choi, performed the service, or was physically present during the critical, or collazo portions of the service, furnished by the resident. I participated in the management of the patient. Addendum entered and electronically signed by Michaela Ferrari MD 12/08/19 19:21: Subjective Date of Service: 12/08/19 Interval History: Obtained more info from Leonard this afternoon, he showed me the investigations done in [facility]. CT liver: 10/17/2019 innumerable AVMs resulting in ateriovenous shunting was noted.Hepatic involvement of the liver in hereditary hemorrhagic telangiectasia with innumerable hepatic AVMs resulting in cardiac failure/cardiomegaly due to arteriovenous shunting. Liver biopsy: no evidence of a primary or metastatic neoplasm. reticulin stain, trichrome stain normal. Patient appeared to be more lethargic this afternoon. Thus ABG was ordered showing CO2 retention 70+. Contacted Dr. Looney for the feasibility of thoracocetesis on lying lateral recumbent position, she is happy to perform the procedure tomorrow. Also contacted Dr. Amaya for optimization of her complicated heart condition, he suggested to get thoracocentesis done first to relieve her acute resp condition, and reevaluate. He is happy to see her tomorrow. Decision made to transfer her to ICU for BIPAP, and do thoracocentesis tomorrow. Hopefully her CO2 could improve with fluid off. She doesn't have any primary pulmonary pathology in history and CT scan. Objective Active Medications: Furosemide (Lasix Iv*) 40 mg IV DAILY [facility] Last Admin: 12/08/19 07:55 Dose: 40 mg Metoprolol Succinate (Toprol Xl Tab*) 50 mg PO DAILY [facility] Mirtazapine (Remeron Tab*) 7.5 mg PO BEDTIME [facility] Last Admin: 12/07/19 20:26 Dose: 7.5 mg Spironolactone (Aldactone Tab*) 25 mg PO DAILY [facility] Last Admin: 12/08/19 15:36 Dose: 25 mg Vital Signs - 8 hr 12/08/19 12/08/19 12/08/19 11:13 11:15 15:15 Temperature 97.8 F 98.4 F Pulse Rate 100 103 Respiratory 22 18 Rate Blood Pressure 108/60 129/59 (mmHg) O2 Sat by Pulse 97 100 Oximetry Oxygen Devices in Use Now: OxyMask Result Diagrams: 12/08/19 07:40 12/08/19 17:02 Additional Lab and Data: BNP> 1300 Calcium 10.9 Albumin 3.0 trop 0.03 EKG Data: WKG: atrial fibrillation, LVH Assess/Plan/Problems-Billing Assessment: Aminah Hensley is a 79y/o female with history of atrial fibrillation not on anticoagulation, hereditary hemorrhagic telangiectasis, HTN, moderate aortic stenosis and HFpEF, presented to ED today for shortness of breath, found to have right large pleural effusion and high BNP, likely due to acute exacerbation of heart failure with preserved ejection function as well aortic stenosis and pulmonary hypertension. Her course complicated by hypercalcemia likely primary hyperparathyroidism. - Patient Problems (1) Acute on chronic heart failure with preserved ejection fraction (HFpEF) Current Visit: No Status: Acute Code(s): I50.33 - ACUTE ON CHRONIC DIASTOLIC (CONGESTIVE) HEART FAILURE SNOMED Code(s): 910653414 Comment: - CT chest showing moderate right pleural effusion - No need for repeat echo at this time - wean down metoprolol as it reduce contractility and worses HFpEF - continue iv lasix, add spironolactone low dose - consider thoracocentesis to rule out other causes of pleural effusion (like malignancy) when she is better and able to tolerate procedure (2) Primary hyperparathyroidism Current Visit: Yes Status: Acute Code(s): E21.0 - PRIMARY HYPERPARATHYROIDISM SNOMED Code(s): 30419158 Comment: - new diagnosis, hypercalcemia with high pth - need to evaluate urine calcium excretion, bone loss, creatinine to decide whether surgical intervention needed - monitor calcium level (3) Afib Current Visit: No Status: Acute Code(s): I48.91 - UNSPECIFIED ATRIAL FIBRILLATION SNOMED Code(s): 39512234 Comment: - Rate 90-100 - Not on AC d/t recurrent epistaxis - Continue metoprolol (decrease), if bp tolerate, continue home med verapamil. (4) Anemia Current Visit: No Status: Acute Code(s): D64.9 - ANEMIA, UNSPECIFIED SNOMED Code(s): 618283656 Comment: - iron deficiency - Received iron sucrose x1 - Continue ferrous sulfate (5) Hereditary hemorrhagic telangiectasia Current Visit: No Status: Chronic Code(s): I78.0 - HEREDITARY HEMORRHAGIC TELANGIECTASIA SNOMED Code(s): 86208241 Comment: - Precludes anti-platelets and anticoagulants. (6) DVT prophylaxis Current Visit: No Status: Acute Code(s): WTM9802 - SNOMED Code(s): 950601107 Comment: - SCDs Status and Disposition: Inpatient Medicine
[2019-12-08] MEDS ORDERED: Spironolactone TAB* 25 MG PO SCH (15:00)
[2019-12-08 17:30] LABS: BUN/Creatinine Ratio 29.6 (8-20); Calcium 10.2 mg/dL (8.6-10.3); EGFR African American 96.3 (>60); EGFR Non-African American 79.6 (>60); Magnesium 1.9 mg/dL (1.9-2.7); Potassium 3.7 mmol/L (3.5-5.0)
--- NOTE | 2019-12-08 19:24 | PN ---
Hospitalist Progress Note Date of Service: 12/08/19 Update on previous progress note Obtained more info from Leonard this afternoon, he showed me the investigations done in [facility]. CT liver: 10/17/2019 innumerable AVMs resulting in ateriovenous shunting was noted.Hepatic involvement of the liver in hereditary hemorrhagic telangiectasia with innumerable hepatic AVMs resulting in cardiac failure/cardiomegaly due to arteriovenous shunting. Liver biopsy: no evidence of a primary or metastatic neoplasm. reticulin stain, trichrome stain normal. Patient appeared to be more lethargic this afternoon. Thus ABG was ordered showing CO2 retention 70+. Contacted Dr. Looney for the feasibility of thoracocetesis on lying lateral recumbent position, she is happy to perform the procedure tomorrow. Also contacted Dr. Amaya for optimization of her complicated heart condition ( aortic stenosis, possible high output heart failure, pulmonary hypertension), he suggested to get thoracocentesis done first to relieve her acute resp condition, and reevaluate. He is happy to see her tomorrow. Decision made to transfer her to ICU for BIPAP, and do thoracocentesis tomorrow. Hopefully her CO2 could improve with fluid off. She doesn't have any primary pulmonary pathology in history and CT scan.
[2019-12-08] MEDS: Mirtazapine TAB* 15 MG PO SCH (20:53)
[2019-12-08] MEDS ORDERED: Haloperidol INJ IV/IM* 5 MG/ML AMP IM PRN (22:23)
[2019-12-09 05:00] LABS: ABS Basophils 0.1 10^3/ul (0-0.2); ABS Lymphocytes 0.5 10^3/ul (1.0-4.8); ABS Neutrophils 4.4 10^3/ul (1.5-7.7); Eosinophil % 0.5 %; Hematocrit 32 % (35-47); Lymphocyte % 8.4 %; Mean Corpuscular HGB Conc 32 g/dL (31-36); Mean Corpuscular Hemoglobin 24 pg (27-31); Mean Corpuscular Volume 77 fL (80-97); Mean Platelet Volume 8.5 fL (7.4-10.4); Nucleated Red Blood Cells % 0.1; Platelet Count 171 10^3/uL (150-450); Red Blood Count 4.11 10^6 /uL (3.70-4.87); Red Cell Distribution Width 22 % (10-15)
[2019-12-09 05:18] LABS: BUN/Creatinine Ratio 32.8 (8-20); Calcium 10.1 mg/dL (8.6-10.3); EGFR African American 121.7 (>60); EGFR Non-African American 100.5 (>60); Magnesium 1.9 mg/dL (1.9-2.7); Phosphorus 1.9 mg/dL (2.5-5.0); Potassium 3.6 mmol/L (3.5-5.0)
--- NOTE | 2019-12-09 08:32 | PN ---
Subjective Date of Service: 12/09/19 Interval History: HD 3 on 12/09 79F PMH AF not on AC, HHT, HTN, HFpEF and (mod-severe Nov 2019), CAD, anemia who presented for hypoxic resp failure in a subacute setting of FTT found to have increasing R pleural effusion and course c/b and by hypercarbia and AMS now on BIPAP in the ICU xfed on 12/08. Also with hypercalcemia thought to be from primary hyperpara. Overnight, some agitation and rec'd haldol 1mg, but otherwise no acute events, hypertensive to systolic 70s asymptomatic, HR remains fib in soft 100s, MAP maintained Labs, stable this AM. This morning seen resting in bed, responsive to voice and follows basic commands but has BiPAP on and not conversant, haldol given roughly 2 hours ago. Objective Active Medications: Furosemide (Lasix Iv*) 40 mg IV DAILY [facility] Last Admin: 12/08/19 07:55 Dose: 40 mg Haloperidol Lactate (Haldol Inj Iv/Im*) 1 mg IM Q6H PRN PRN Reason: AGITATION Last Admin: 12/09/19 07:54 Dose: 1 mg Metoprolol Succinate (Toprol Xl Tab*) 50 mg PO DAILY [facility] Mirtazapine (Remeron Tab*) 7.5 mg PO BEDTIME [facility] Last Admin: 12/08/19 20:53 Dose: 7.5 mg Spironolactone (Aldactone Tab*) 25 mg PO DAILY [facility] Last Admin: 12/08/19 15:36 Dose: 25 mg Vital Signs - 8 hr 12/09/19 12/09/19 12/09/19 00:32 00:45 01:00 Temperature Pulse Rate 96 97 Respiratory 24 23 27 Rate Blood Pressure 102/52 96/38 (mmHg) O2 Sat by Pulse 96 96 Oximetry 12/09/19 12/09/19 12/09/19 01:15 01:30 01:45 Temperature Pulse Rate 93 94 97 Respiratory 30 24 22 Rate Blood Pressure 109/67 102/42 103/45 (mmHg) O2 Sat by Pulse 97 97 97 Oximetry 12/09/19 12/09/19 12/09/19 02:00 02:15 02:30 Temperature Pulse Rate 101 101 95 Respiratory 23 21 22 Rate Blood Pressure 105/44 100/58 119/60 (mmHg) O2 Sat by Pulse 92 95 97 Oximetry 02/08/20 02/08/20 02/08/20 02:45 02:54 03:00 Temperature Pulse Rate 119 98 Respiratory 24 23 21 Rate Blood Pressure 114/57 90/59 (mmHg) O2 Sat by Pulse 95 97 Oximetry 12/09/19 12/09/19 12/09/19 03:15 03:31 03:46 Temperature Pulse Rate 102 108 114 Respiratory 30 23 20 Rate Blood Pressure 105/53 103/77 116/67 (mmHg) O2 Sat by Pulse 97 96 91 Oximetry 12/09/19 12/09/19 12/09/19 04:00 04:14 04:15 Temperature 98.6 F Pulse Rate 105 96 Respiratory 21 25 Rate Blood Pressure 107/58 124/56 (mmHg) O2 Sat by Pulse 96 96 Oximetry 12/09/19 12/09/19 12/09/19 04:30 04:45 05:00 Temperature Pulse Rate 93 104 107 Respiratory 22 27 19 Rate Blood Pressure 112/67 128/72 108/61 (mmHg) O2 Sat by Pulse 97 98 97 Oximetry 12/09/19 12/09/19 12/09/19 05:15 05:30 05:45 Temperature Pulse Rate 104 100 92 Respiratory 21 24 26 Rate Blood Pressure 111/57 123/47 96/44 (mmHg) O2 Sat by Pulse 97 95 96 Oximetry 12/09/19 12/09/19 12/09/19 06:00 06:15 06:30 Temperature Pulse Rate 106 106 109 Respiratory 21 17 22 Rate Blood Pressure 104/45 111/47 100/61 (mmHg) O2 Sat by Pulse 96 95 95 Oximetry 12/09/19 12/09/19 12/09/19 06:45 06:47 07:00 Temperature Pulse Rate 116 94 111 Respiratory 18 27 22 Rate Blood Pressure 109/57 109/57 128/72 (mmHg) O2 Sat by Pulse 96 96 98 Oximetry 12/09/19 07:54 Temperature 98.4 F Pulse Rate Respiratory Rate Blood Pressure (mmHg) O2 Sat by Pulse Oximetry Oxygen Devices in Use Now: BiPAP Appearance: Frail cachectic woman Eyes: No Scleral Icterus, PERRLA Ears/Nose/Mouth/Throat: - - Dry MM Neck: NL Appearance and Movements; NL JVP, Trachea Midline Respiratory: Symmetrical Chest Expansion and Respiratory Effort, - - Rhonchi in anterior sahu diminshed in R Cardiovascular: - - Irreg irreg, 4/6 KAL radiates to carotids Abdominal: NL Sounds; No Tenderness; No Distention, No Hepatosplenomegaly Lymphatic: No Cervical Adenopathy Extremities: No Edema Skin: - - SebK Neurological: - - Responds to voice, follows commands Result Diagrams: 12/09/19 04:50 12/09/19 04:50 Additional Lab and Data: BNP> 1300 Calcium 10.9 Albumin 3.0 trop 0.03 Diagnostic Imaging: CTH: No acute intracranial path CT Lung 11/28: Mod pleural effusion and mediastinal LAD MRI 08/2019: IMPRESSION: 1. THERE IS DIFFUSE INVOLUTIONAL CHANGE WITH ELEVATED T2/FLAIR SIGNAL IN THE PERIVENTRICULAR AND SUBCORTICAL WHITE MATTER SUGGESTIVE OF CHRONIC SMALL VESSEL ISCHEMIA. 2. THERE ARE INNUMERABLE FOCI OF SUSCEPTIBILITY ARTIFACT THROUGHOUT THE CEREBRAL HEMISPHERES AND CEREBELLUM BILATERALLY CONSISTENT WITH CHRONIC MICROHEMORRHAGE WHICH CAN BE SEEN IN THE SETTING OF CHRONIC UNCONTROLLED HYPERTENSION. AMYLOID ANGIOPATHY IS ALSO WITHIN THE DIFFERENTIAL. EKG Data: EKG: atrial fibrillation, LVH Echo Nov 2019: EF 60-65%, Grade 2 diastolic dysfxn, -Mean gradient 35 c/w mod to severe Assess/Plan/Problems-Billing Assessment: 79F PMH AF not on AC, HHT, HTN, HFpEF and (mod-severe Nov 2019), CAD, anemia who presented for hypoxic resp failure in a subacute setting of FTT found to have R pleural effusion and course c/b and by hypercarbia and AMS now on BIPAP in the ICU xfed on 12/08. Also with hypercalcemia thought to be from primary hyperpara. - Patient Problems (1) AMS (altered mental status) Current Visit: Yes Status: Acute Code(s): R41.82 - ALTERED MENTAL STATUS, UNSPECIFIED SNOMED Code(s): 281573145 Comment: - New agitation overnight, possibly hypercarbia and hospital associated delerium , non focal neuro exam - Monitor for now, low dose haldol and reorinetation - Per family, pt did drink wine daily (1 glass reported), will start WAM protocol only without PRN ativans just to monitor scores (2) Hypercarbia Current Visit: Yes Status: Acute Code(s): R06.89 - OTHER ABNORMALITIES OF BREATHING SNOMED Code(s): 32106286 Comment: -Brief AMS on 12/08, found to be hypercarbic, likely poor TV in setting of diminshed reserve and incomplete exhalation -Remains on BiPAP, tolerating well, since haldol remains sleepy, will attempt to trial off BiPAP later 12/09. (3) Pleural effusion, right Current Visit: Yes Status: Acute Code(s): J90 - PLEURAL EFFUSION, NOT ELSEWHERE CLASSIFIED SNOMED Code(s): 27540276 Comment: -Presumed transudative from severe and HFpeF exacerbation -Can't r/o underlying malignancy -Awaiting throacentesis 12/09 (4) Primary hyperparathyroidism Current Visit: Yes Status: Acute Code(s): E21.0 - PRIMARY HYPERPARATHYROIDISM SNOMED Code(s): 62788892 Comment: - HyperCa and hyperPTH - need to evaluate urine calcium excretion, bone loss, creatinine to decide whether surgical intervention needed - monitor calcium level (5) Acute on chronic heart failure with preserved ejection fraction (HFpEF) Current Visit: No Status: Acute Code(s): I50.33 - ACUTE ON CHRONIC DIASTOLIC (CONGESTIVE) HEART FAILURE SNOMED Code(s): 466589947 Comment: - CT chest showing moderate right pleural effusion - Metoprolol Succinate 50mg, dose reduction - Lasix 40mg IV x3 doses->d/c today 2/2 to hypotension, sprinolactone 25mg->d/c spironolactone today 2/2 to hypotension (6) Afib Current Visit: No Status: Acute Code(s): I48.91 - UNSPECIFIED ATRIAL FIBRILLATION SNOMED Code(s): 03808811 Comment: - Rate 110-120, limited in CCB and BB 2/2 to hypotension - Not on AC d/t recurrent epistaxis - Continue metoprolol low dose if BP tolerates, add back low dose digoxin in consultation with cardiology. Initially digoxin held in November after thoughts in contributed to FTT. (7) Anemia Current Visit: No Status: Acute Code(s): D64.9 - ANEMIA, UNSPECIFIED SNOMED Code(s): 935851843 Comment: - LEE - Received iron sucrose x1 Nov 2019 (8) Weight loss Current Visit: No Status: Acute Comment: - BMI 17; likely in the setting of subacute FTT - Digoxin initially thought to be contributing factor, though likely multifactorial, adding back dig 2/2 to difficult rate control and hypotension - Nutrition consult - Continue Remeron (9) Hereditary hemorrhagic telangiectasia Current Visit: No Status: Chronic Code(s): I78.0 - HEREDITARY HEMORRHAGIC TELANGIECTASIA SNOMED Code(s): 96881594 Comment: - Precludes anti-platelets and anticoagulants. - MRI from august with chronic microhemmorhage, possibly in relation to her HHT (10) DVT prophylaxis Current Visit: No Status: Acute Code(s): PLC7521 - SNOMED Code(s): 831707663 Comment: - SCDs (11) DNR (do not resuscitate) Current Visit: No Status: Acute Comment: Status and Disposition: Currently in ICU, possibly transfer out 12/09 if well enough after thora Heart healthy diet D/C Hany [facility] Dispo: Likely [facility] (she came from [place]), PT/OT ordered
[2019-12-09] MEDS ORDERED: Spironolactone TAB* 25 MG PO SCH (09:00)
[2019-12-09] MEDS ORDERED: Digoxin IV* 0.5 MG/2 ML AMP (0.25 MG/ML) IV SLOW PU ONE (11:26)
[2019-12-09] MEDS ORDERED: Metoprolol Tartrate IV* 1 MG/ML 5 ML VIAL IV ONE (11:28)
[2019-12-09] MEDS: Furosemide IV* 10 MG/ML VIAL (40 MG) IV SCH (11:40)
[2019-12-09 12:48] LABS: Body Fluid Source Pleural Fluid
[2019-12-09 13:57] LABS: Body Fluid Mono 37 %; Body Fluid Other Cells 47
--- NOTE | 2019-12-09 14:22 | BRIEFOPN ---
Brief Operative/Procedure Note - Operation Details Pre-Op Diagnosis: Rt pleural effusion Post-Op Diagnosis: Large rt effusion Procedures: Ultrasound guided thoracentesis on right side Surgeon(s)/Proceduralists: inocencio Looney Anesthesia: Local with 1% lidocaine- 5cc Estimated Blood Loss: None Findings: Light yellow pleural fluid- 1450cc Specimen(s)/Culture(s) Description: Biochem, hematology, microbiology Complications: None
--- NOTE | 2019-12-09 14:34 | CONS ---
CC: Dr. Mc; Dr. Lemon CARDIOLOGY CONSULTATION: DATE OF CONSULT: 12/09/19 PATIENT OF: Dr. Mc and Dr. Lemon. REASON FOR EVALUATION: Heart failure. HISTORY OF PRESENT ILLNESS: History is obtained from the chart, note of , echo report and review of the echo of 11/21/19. The and the daughter were at bedside and Dr. Daley yesterday. This is a complex 79-year-old woman with a history of atrial fibrillation, hereditary hemorrhagic telangiectasias, hypertension, aortic stenosis, and heart failure with preserved ejection fraction, who was admitted on 12/07/19 with worsening shortness of breath. Of note, she had been admitted at the end of November for CHF and got diuretics. Her digoxin apparently was discontinued. The patient had been on digoxin up until the most recent admission at the end of November, discharged on 12/03/19. She was switched to verapamil. During this admission, she has had more confusion over the last 3 to 4 days and disorientation. Her says that since April, she has been weaker and losing weight and had decreased appetite. They deny any fevers, chills, sweats, cough or diarrhea. She does have a history of multiple cauteries for bleeding problems and most recent one was in November. She also was iron deficient and was treated with IV iron on last admission and again this admission. She also was noted to have an elevated calcium and elevated PTH and this right pleural effusion has been attributed to heart failure, but has been present for some time and dates back to at least April when there was a large right pleural effusion. Of note, she has AFib and has not been on anticoagulation due to her HHT. Her thinks that she sleeps in a bed propped up for last 6 months, but when I saw her today, she was on BiPAP and lying fairly flat. During the course of admission, she has been found to be hypercarbic and was transferred to the unit for BiPAP. Of note, her blood gas from yesterday revealed pH of 7.36, CO2 of 72 , O2 of 109. PAST MEDICAL HISTORY: Includes: 1. Heart failure with preserved ejection fraction. Zxzsguzc-wj-ucahpy aortic stenosis, last assessed on 11/21/19. At that time, her valve area by continuity equation was 0.7 cm sq, peak velocity was 3.9 meters per second, LVOT velocity was 1 meter per second, LVOT diameter was 1.8 and the 2D findings were suggestive of severe . 2. Iron-deficiency anemia. 3. Hypertension. 4. Hyperlipidemia. 5. Hereditary hemorrhagic telangiectasias. Recent evaluation at [facility] in [place] for liver lesion and benign biopsy. As per the and her daughter reports more substantial alcohol use in the past. Her reports that she only has 1 glass of wine a day. It is unclear if that is accurate. 6. The reports multiple cerebrovascular procedures related to her HHT but I don't have documentation. PAST SURGICAL HISTORY: Includes: 1. Partial hysterectomy. 2. Multiple nose cauteries. 3. Left hip replacement after a mechanical fall in 2016. 4. Approximately 10 cauterizations for GI tract over the last 10 years, most recent which was 11/24/19. FAMILY HISTORY: Includes father from colon cancer at 80. She is 1 of 9 siblings, most of whom have . Mother of heart failure in her 90s. Father of colon cancer. SOCIAL HISTORY: reports she drinks 1 glass of wine a night. Denies caffeine. REVIEW OF SYSTEMS: Review of systems x10 was negative except as above. PHYSICAL EXAM: She is a frail-appearing elderly female, awake on BiPAP, but having difficulty responding to questions and following simple directions. Atraumatic, normocephalic. She did not cooperate with following my finger. No significant JVD. Carotids weak and irregular and delayed. No cervical lymphadenopathy. Cardiac Exam: S1, S2 with a 3/6 harshly patent systolic ejection murmur heard at the left sternal border and radiating across the precordium, single S2. Chest with absent breath sounds about half a way up on the right and clear on the left. Abdomen: Bowel sounds present and nontender. Femoral pulses intact without bruits. Distal pulses diminished but present. No edema. There was muscle wasting. She is unable to cooperate with the evaluation of motor strength, but was moving all 4s. Deep tendon reflexes 1/4. DIAGNOSTIC STUDIES/LAB DATA: Include sodium 142, potassium of 3.6, BUN of 19, creatinine of 0.58, phosphorus of 1.9. White count of 6, hemoglobin of 10, hematocrit of 32, MCV of 77, platelet count of 171. Her iron back on 11/28/19 was less than 20, iron binding was 5%, ferritin was low at 10.2. CRP was elevated at 43 on the 11/28/19 and BNP on 12/08/19 was greater than 1300. Echocardiogram from 11/21/19 revealed an EF of 60% to 65%, severe left atrial enlargement, moderate right atrial enlargement, wgzakjzx-ow-bglsld aortic stenosis, valve area of 0.6 to 0.7, peak velocity of 3.9 meters per second, mean gradient at 35, DI 0.24, mild MR, mild mitral stenosis based on mean gradient, moderate pulmonary hypertension of 55. Compared to April of 2019, the LVH and EF were stable. MS and MR is stable. is progressed from moderate. AI is stable. IMPRESSION AND PLAN: My impression is that Ms. Hensley is a complex 79-year-old woman with multiple medical problems and now with decreased mentation, weight loss, right pleural effusion, atrial fibrillation with a rapid ventricular response and weight loss of unclear etiology and failure to thrive. She does not appear to be volume overloaded but may be in a low output state due to significant aortic stenosis and rapid heart rate. It is unclear whether she improved after stopping the digoxin or not. She had low blood pressures which may be due to volume depletion. Her elevated calcium and low iron may also be contributing to weakness and heart failure. Unfortunately, given her risk of bleeding, interventions are relatively contraindicated including TAVR for her aortic stenosis given her inability to be anticoagulated. The family understands this and the patient understands this and she has chosen to be a do not resuscitate. Within those parameters, we would like to make her comfortable and try to improve her function as much as possible. I would also consider a possibility of alcohol withdrawal given her regular use of alcohol and low body weight. For the time being, I have recommended the followin. I would suggest a rate control given her relative hypotension last night. I would use digoxin for the time being and beta-ivon as tolerated. 2. Would avoid further diuresis and Aldactone to allow her to have a sufficient blood pressure to allow for rate control. 3. Agree with replacing her iron as you are doing. 4. Would treat her hypercalcemia as you are doing. 5. Would consider possibility of alcohol withdrawal. 6. I also think that attempted thoracentesis is reasonable both in terms of being therapeutic and hopefully improving her pulmonary mechanics and also perhaps offering potential insight as to the etiology of her pleural effusion. I discussed with the family that this could be due to heart failure or possibly an infection or neoplastic process. Again, she is a do not resuscitate and conservative measures are indicated at this point in time. The recommendations were discussed with Dr. Diana Daley. [id number]/[facility] #: [id number] KJ
[2019-12-09] MEDS: Metoprolol Succinate XL TAB* 50 MG PO SCH (14:58)
--- NOTE | 2019-12-09 16:13 | CONS ---
PULMONARY CONSULTATION REPORT: DATE OF CONSULT: 12/09/19 CONSULTATION REQUESTED BY: Dr. Ferrari and Dr. Daley. REASON FOR CONSULTATION: Evaluation of pleural effusion. HISTORY OF PRESENT ILLNESS: The patient is a 79-year-old female with a history of atrial fibrillation, congestive heart failure. The patient was transferred to the ICU for evaluation of respiratory distress. The patient was placed on BiPAP. Imaging study showed the patient with large right pleural effusion with associated atelectasis. Pulmonary consultation was requested for thoracentesis. The patient seen and examined at bedside. The patient unable to provide much history due to underlying dementia. She was found to be slightly tachypneic on BiPAP. The patient was also found to be tachycardic. The patient has been receiving beta- blockers and also digoxin for AFib. The patient currently not on anticoagulation. The patient seems to be tolerating BiPAP without any issues. PAST MEDICAL HISTORY: 1. Hereditary hemorrhagic telangiectasia. 2. AFib. 3. Acute on chronic right heart failure with preserved ejection fraction. 4. Anemia. 5. Hyperparathyroidism. MEDICATIONS AT HOME: 1. Verapamil. 2. Potassium chloride. 3. Remeron. 4. Ferrous sulfate. 5. Cholecalciferol. 6. Torsemide. 7. Metoprolol. ALLERGIES: PEPPER, ANTIHISTAMINES. FAMILY HISTORY: Reviewed, noncontributory. SOCIAL HISTORY: No history of tobacco, alcohol or drug abuse. REVIEW OF SYSTEMS: Limited secondary to the patient's dementia. PHYSICAL EXAM: The patient at bed, in no apparent distress. Vital Signs: Temperature 97.9, pulse 102 beats per minute, respiratory rate 24 per minute after thoracentesis, O2 sat 97%, blood pressure 108/76. HEENT: Pupils equal, reactive to light. Mucous membranes moist. Lungs: Decreased breath sounds at bases bilaterally, right greater than left. Cardiovascular: S1, S2 present, regular. Abdomen: Soft, nontender, nondistended. Bowel sounds present. Extremities: Normal range of motion. Skin: Telangiectasia present. Neuro: Alert, awake, unable to assess completely. DIAGNOSTIC STUDIES/LAB DATA: WBC count 6.0, hemoglobin 10, hematocrit 32, platelet count 171. Sodium 142, potassium 3.6, chloride 101, bicarb 37, BUN 19 , creatinine 0.58. BNP greater than 1300. Pleural fluid showed predominant lymphocytes. Chest x-ray on admission was personally reviewed by me, evidence of right pleural effusion with associated atelectasis. IMPRESSION AND RECOMMENDATIONS: 79-year-old female with a history of atrial fibrillation, diastolic congestive heart failure with worsening respiratory status with large right pleural effusion. The patient had thoracentesis with removal of 1450 mL of pleural fluid from the right side. The patient tolerated the procedure well. Postprocedural chest x- ray is pending at this time. The patient with underlying cardiac issues resulting in pleural effusion. The patient being optimized with medications from cardiac perspective. Will follow up p.r.n. for effusion. Thank you for allowing me to participate in the care of your patient. [id number]/[facility] #: [id number] KJ
--- NOTE | 2019-12-09 16:56 | PN ---
Hospitalist Progress Note Date of Service: 12/09/19 Examined pt post thoracentesis, dramatic improvement in her mental status, wakefulness and SOB. She ate some dinner is more oriented and reports improvement in many of her sx of SOB and weakness VSS Stable to xfer back to 4 S for continued discussions regarding her prognosis and optimizing mobility and nutrition
[2019-12-09] MEDS: Mirtazapine TAB* 15 MG PO SCH (20:44)
--- NOTE | 2019-12-09 21:57 | PRO ---
THORACENTESIS REPORT: DATE OF PROCEDURE: 12/09/19 - ROOM #ICU-04 PREPROCEDURAL DIAGNOSIS: Large right pleural effusion for symptomatic benefit. PROCEDURE PERFORMED: Ultrasound-guided thoracentesis on the right side. ANESTHESIA: Local anesthesia with 1% lidocaine 5 cc. DESCRIPTION OF PROCEDURE: Informed consent was obtained from the patient prior to the procedure after all the risks and benefits were thoroughly explained. The patient could not provide the consent and consent was obtained from the patient's . Area was disinfected with chlorhexidine. Strict aseptic precautions and barrier techniques were utilized. Appropriate time-out was performed and agreed on by attending staff prior to the procedure. Portable ultrasound was utilized at bedside to localize large amounts of right pleural effusion. Local anesthesia was achieved with 1% lidocaine down into the pleural space taking precautions. #11 scalpel blade was used to make stab incision. CareFusion 8-[place] thoracentesis catheter was subsequently inserted under manual suction taking precautions. Catheter was left in place and needle was removed. 1450 mL of dark yellow fluid was aspirated under manual suction. Catheter was then removed and sterile Band-Aid was applied. The patient tolerated the procedure well. Postprocedural chest x-ray was ordered and pending at the time of dictation. Fluid was sent in to the lab for further testing. [id number]/[facility] #: [id number] [facility]
[2019-12-09] MEDS ORDERED: LORazepam TAB(*) 1 MG PO SCH (22:00)
[2019-12-09] MEDS ORDERED: NS 0.9% 1000 ML** 1,000 ML IV ONE (23:22)
[2019-12-09] MEDS ORDERED: cefTRIAXone(*) 2 GM in NS 0.9% 100 ML* 100 ML IVPB SCH (23:30)
[2019-12-10] MEDS ORDERED: Azithromycin 500 mg/250 ml NS 500 MG/250 ML BAG IVPB SCH
[2019-12-10 00:24] LABS: ABS Basophils 0.1 10^3/ul (0-0.2); ABS Lymphocytes 0.5 10^3/ul (1.0-4.8); ABS Monocytes 1.3 10^3/ul (0-0.8); ABS Neutrophils 6.4 10^3/ul (1.5-7.7); Eosinophil % 0.2 %; Hematocrit 32 % (35-47); Hemoglobin 9.9 g/dL (12.0-16.0); Lymphocyte % 6.2 %; Mean Corpuscular HGB Conc 31 g/dL (31-36); Mean Corpuscular Hemoglobin 24 pg (27-31); Mean Corpuscular Volume 78 fL (80-97); Mean Platelet Volume 8.1 fL (7.4-10.4); Nucleated Red Blood Cells % 0.2; Platelet Count 204 10^3/uL (150-450); Red Blood Count 4.13 10^6 /uL (3.70-4.87); Red Cell Distribution Width 21 % (10-15); White Blood Count 8.3 10^3/uL (3.5-10.8)
[2019-12-10 00:39] LABS: ALT 10 U/L (7-52); AST 18 U/L (13-39); Albumin 2.9 g/dL (3.2-5.2); Albumin/Globulin Ratio 0.8 (1-3); Alkaline Phosphatase 76 U/L (34-104); BUN/Creatinine Ratio 36.7 (8-20); Blood Urea Nitrogen 22 mg/dL (6-24); Calcium 10.1 mg/dL (8.6-10.3); Chloride 101 mmol/L (101-111); EGFR Non-African American 96.7 (>60); Globulin 3.5 g/dL (2-4); Glucose 117 mg/dL (70-100); Potassium 3.8 mmol/L (3.5-5.0); Sodium 145 mmol/L (135-145); Total Protein 6.4 g/dL (6.4-8.9)
[2019-12-10 00:55] LABS: CO2 Carbon Dioxide 44 mmol/L (22-32)
[2019-12-10] MEDS ORDERED: Lorazepam PYXIS KEY PRN ×3 (01:20→17:08)
[2019-12-10] MEDS ORDERED: LORazepam INJ* 2 MG/ML 1 ML VIAL IV PUSH ONE ×2 (01:20→03:17)
[2019-12-10] MEDS ORDERED: LORazepam INJ* 2 MG/ML 1 ML VIAL IV PUSH SCH (02:00)
[2019-12-10] MEDS ORDERED: Metoprolol Tartrate IV* 1 MG/ML 5 ML VIAL IV ONE (03:18)
[2019-12-10] MEDS ORDERED: Metoprolol Tartrate IV* 1 MG/ML 5 ML VIAL ONE (03:46)
--- NOTE | 2019-12-10 03:58 | PN ---
Hospitalist Progress Note Date of Service: 12/10/19 Around 2330, patient spiked a fever over 101, heart rate 91, and was tachypnic. Patient was found to be obtunded, responding to painful stimuli only. Would briefly open her eyes and close them again. Heart rate irregular, tachy. Lungs clear, diminished throughout. Abdomen soft, +BSx4. Mucous membranes dry. Activated sepsis protocol: 1L NS bolus, azithromycin, ceftriaxone, chest xray, and labs ordered. ABG drawn due to decreased LOC. 0130: Daughter at bedside. Both she and the nurse reported posturing. IV Ativan and brain CT ordered. Transfer orders placed to move her to the ICU and place on bipap. 0400: Patient is unresponsive, heart rate in the 130-140, continuing to occasionally posture. Another 1mg IV ativan and 5mg IV metoprolol ordered.
[2019-12-10 04:27] LABS: ABS Lymphocytes 0.5 10^3/ul (1.0-4.8); ABS Neutrophils 5.2 10^3/ul (1.5-7.7); Eosinophil % 0.3 %; Hematocrit 30 % (35-47); Hemoglobin 9.4 g/dL (12.0-16.0); Lymphocyte % 6.9 %; Mean Corpuscular HGB Conc 31 g/dL (31-36); Mean Corpuscular Hemoglobin 24 pg (27-31); Mean Corpuscular Volume 78 fL (80-97); Mean Platelet Volume 8.3 fL (7.4-10.4); Nucleated Red Blood Cells % 0.1; Platelet Count 173 10^3/uL (150-450); Red Cell Distribution Width 22 % (10-15); White Blood Count 6.8 10^3/uL (3.5-10.8)
[2019-12-10 04:42] LABS: BUN/Creatinine Ratio 35.7 (8-20); Calcium 9.4 mg/dL (8.6-10.3); EGFR African American 126.7 (>60); EGFR Non-African American 104.7 (>60); Potassium 3.8 mmol/L (3.5-5.0)
[2019-12-10] MEDS ORDERED: NS 0.9% 1000 ML** 1,000 ML IV ONE (08:55)
[2019-12-10] MEDS ORDERED: Thiamine TAB* 100 MG TAB PO SCH (09:00)
[2019-12-10] MEDS ORDERED: Folic Acid TAB* 1 MG PO SCH (09:00)
[2019-12-10] MEDS ORDERED: Multivitamins/Minerals TAB PO SCH (09:00)
[2019-12-10] MEDS: Metoprolol Succinate XL TAB* 50 MG PO SCH (09:57)
--- NOTE | 2019-12-10 10:23 | PN ---
Date of Service: 12/10/19 Critical Care Services: Returns to ICU with hypercapnia and unresponsiveness Vital Signs: Temp Pulse Resp BP SpO2 FiO2 36.4 C 102 34 81/43 99 30 12/10/19 09:45 12/10/19 09:45 12/10/19 09:45 12/10/19 09:45 12/10/19 09:45 12/10 08:00 Physical Exam: Gen: cachectic, unresponsive HEENT: NCAT, PERRL, bitemporal wasting Lungs: coarse entry Cardiac: S1S2 reg Abdomen: soft, scaphoid, NT, +BS Extremities: no edema Neuro: unresponsive Fluid Balance (Past 24 Hours): I= O= Net Intake & Output 12/08/19 12/09/19 12/10/19 12/11/19 06:59 06:59 06:59 06:59 Intake Total 0 400 400 Output Total 850 1075 405 350 Balance -850 -675 -5 -350 Weight 52.435 kg 54.068 kg 50.802 kg Intake: Oral 0 400 400 Output: Urine 850 600 0 Leach 275 405 350 Straight Cath 200 Other: Estimated Void Large Medium # Voids 1 Labs: Laboratory Results - last 24 hr 12/09/19 12/10/19 12/10/19 11:15 00:14 00:14 WBC 8.3 RBC 4.13 Hgb 9.9 L Hct 32 L MCV 78 L MCH 24 L MCHC 31 RDW 21 H Plt Count 204 MPV 8.1 Neut % (Auto) 77.0 Lymph % (Auto) 6.2 Cowley % (Auto) 15.7 Eos % (Auto) 0.2 Baso % (Auto) 0.9 Absolute Neuts (auto) 6.4 Absolute Lymphs (auto) 0.5 L Absolute Monos (auto) 1.3 H Absolute Eos (auto) 0.0 Absolute Basos (auto) 0.1 Absolute Nucleated RBC 0.0 Nucleated RBC % 0.2 Patient Temperature ABG pH ABG pH (Temp Correct) ABG pCO2 ABG pCO2 (Temp Corrct ABG pO2 ABG pO2 (Temp Correct ABG HCO3 ABG O2 Saturation ABG Base Excess Respiration Rate O2 Delivery Device Ventilator Type Vent Mode FiO2 Inspiratory Time PEEP Pressure Support Pressure Control EPAP IPAP BiPAP Sodium 145 Potassium 3.8 Chloride 101 Carbon Dioxide 44 H* Anion Gap Not Reportable BUN 22 Creatinine 0.60 Est GFR ( Amer) 117.0 Est GFR (Non-Af Amer) 96.7 BUN/Creatinine Ratio 36.7 H Glucose 117 H Lactic Acid Calcium 10.1 Total Bilirubin 0.70 AST 18 ALT 10 Alkaline Phosphatase 76 Ammonia Total Protein 6.4 Albumin 2.9 L Globulin 3.5 Albumin/Globulin Ratio 0.8 L Fluid Source Pleural fluid Fluid Volume 1400 Fluid Color Yellow Fluid Appearance Clear Fluid WBC 105 Fluid RBC 200 Fluid Tot Cell Count 100 Fluid Neutrophils 26 Fluid Lymphocytes 37 Fluid Monocytes 37 Fluid Other Cells 47 12/10/19 12/10/19 12/10/19 00:14 00:25 04:10 WBC RBC Hgb Hct MCV MCH MCHC RDW Plt Count MPV Neut % (Auto) Lymph % (Auto) Cowley % (Auto) Eos % (Auto) Baso % (Auto) Absolute Neuts (auto) Absolute Lymphs (auto) Absolute Monos (auto) Absolute Eos (auto) Absolute Basos (auto) Absolute Nucleated RBC Nucleated RBC % Patient Temperature Not Reportable Not Reportable ABG pH 7.33 L 7.33 L ABG pH (Temp Correct) Not Reportable Not Reportable ABG pCO2 80 H* 76 H* ABG pCO2 (Temp Corrct Not Reportable Not Reportable ABG pO2 150 H 106 H ABG pO2 (Temp Correct Not Reportable Not Reportable ABG HCO3 34.6 H 33.3 H ABG O2 Saturation 99.4 H 99.1 H ABG Base Excess 12.5 H 10.8 H Respiration Rate Not Reportable 12 O2 Delivery Device Bipap bipap Ventilator Type Not Reportable Not Reportable Vent Mode Not Reportable Not Reportable FiO2 100 30 Inspiratory Time Not Reportable Not Reportable PEEP Not Reportable Not Reportable Pressure Support Not Reportable Not Reportable Pressure Control Not Reportable Not Reportable EPAP 10 6 IPAP 20 12 BiPAP Not Reportable Not Reportable Sodium Potassium Chloride Carbon Dioxide Anion Gap BUN Creatinine Est GFR ( Amer) Est GFR (Non-Af Amer) BUN/Creatinine Ratio Glucose Lactic Acid 0.5 Calcium Total Bilirubin AST ALT Alkaline Phosphatase Ammonia Total Protein Albumin Globulin Albumin/Globulin Ratio Fluid Source Fluid Volume Fluid Color Fluid Appearance Fluid WBC Fluid RBC Fluid Tot Cell Count Fluid Neutrophils Fluid Lymphocytes Fluid Monocytes Fluid Other Cells 12/10/19 12/10/19 12/10/19 04:17 04:17 04:17 WBC 6.8 RBC 3.90 Hgb 9.4 L Hct 30 L MCV 78 L MCH 24 L MCHC 31 RDW 22 H Plt Count 173 MPV 8.3 Neut % (Auto) 76.7 Lymph % (Auto) 6.9 Cowley % (Auto) 15.5 Eos % (Auto) 0.3 Baso % (Auto) 0.6 Absolute Neuts (auto) 5.2 Absolute Lymphs (auto) 0.5 L Absolute Monos (auto) 1.0 H Absolute Eos (auto) 0.0 Absolute Basos (auto) 0.0 Absolute Nucleated RBC 0.0 Nucleated RBC % 0.1 Patient Temperature ABG pH ABG pH (Temp Correct) ABG pCO2 ABG pCO2 (Temp Corrct ABG pO2 ABG pO2 (Temp Correct ABG HCO3 ABG O2 Saturation ABG Base Excess Respiration Rate O2 Delivery Device Ventilator Type Vent Mode FiO2 Inspiratory Time PEEP Pressure Support Pressure Control EPAP IPAP BiPAP Sodium 145 Potassium 3.8 Chloride 105 Carbon Dioxide 38 H Anion Gap 2 BUN 20 Creatinine 0.56 Est GFR ( Amer) 126.7 Est GFR (Non-Af Amer) 104.7 BUN/Creatinine Ratio 35.7 H Glucose 114 H Lactic Acid Calcium 9.4 Total Bilirubin AST ALT Alkaline Phosphatase Ammonia 105 H Total Protein Albumin Globulin Albumin/Globulin Ratio Fluid Source Fluid Volume Fluid Color Fluid Appearance Fluid WBC Fluid RBC Fluid Tot Cell Count Fluid Neutrophils Fluid Lymphocytes Fluid Monocytes Fluid Other Cells Nutrition: NPO Impression: She is dying. Plan: Acute on Chronic Hypercapnic Respiratory Failure - despite aggressive care she only had a brief rally and then immediately returns to ICU. While recovery is still possible in the short term it is not likely and most certainly not durable. This was discussed in detail with the patient's and family who are all of one voice that patient would not want her care further escalated and that they are entertaining de-escalation to comfort at this time. In that light a DNR/DNI/Limited medical interventions order has been placed and MOLST completed. Continue intermittent fluid for her HoTN and BiPAP for her hypercapnia for now. Thus far no meaningful response to either. This decline is in the setting of chronic decline and failure to thrive. Family very much at peace with likely demise.
[2019-12-10] MEDS ORDERED: Digoxin IV* 0.5 MG/2 ML AMP (0.25 MG/ML) IV SLOW PU ONE (11:29)
[2019-12-10] MEDS: Morphine INJ* 2 MG/ML 1 ML SYRINGE (TWO MG - NEW SYRINGE VERSION) IV PRN ×3 (16:45→19:11)
[2019-12-10] MEDS ORDERED: LORazepam INJ* 2 MG/ML 1 ML VIAL IV PUSH PRN ×2 (17:08→18:03)
[2019-12-10] MEDS ORDERED: LORazepam INJ* 2 MG/ML 1 ML VIAL ONE (17:19)
--- NOTE | 2019-12-10 20:00 | PN ---
Hospitalist Progress Note Date of Service: 12/10/19 Notified by nurse regarding family opting for comfort care. Discussed goals of care with (Leonard Hensley), daughter (Bria Baldwin) at bedside. They agreed on Comfort measures only and a new MOLST was updated stating the wishes. Will DC all meds except for comfort and initiate comfort care orders.
[2019-12-10 22:22] VITALS: BP 57/42
--- NOTE | 2019-12-11 00:23 | DS ---
CC: Dr. Lemon; Dr. Hernández * DISCHARGE SUMMARY: DATE OF ADMISSION: 12/07/19 DATE OF : 12/10/19 TIME OF : 2032 MY ATTENDING PHYSICIAN WHILE IN THE HOSPITAL: Dr. Luong.* (DICTATED BY BOLA DOMINGUEZ NP) PRIMARY CARE PROVIDER: Dr. Lemon. PRINCIPAL DIAGNOSES: Include: 1. Acute on chronic respiratory failure. 2. Congestive heart failure exacerbation. 3. Pleural effusion. 4. Hypercarbia. 5. Atrial fibrillation. 6. Hereditary hemorrhagic telangiectasia. HISTORY OF PRESENTING/HOSPITAL COURSE: I will refer you to H and P for further details. In short, Ms. Hensley was a 79-year-old female patient, who was admitted on 12/07/19 for complaints of shortness of breath. She was noted to have recent admission in the end of November for CHF exacerbation. The patient was starting to feel more short of breath on the second day after discharge, getting worse. She was then taking her Demadex 20 mg daily and it was noted that she had a significant weight loss since June of 2019 from 130 to 108 pounds. She ultimately was admitted and was found to have right pleural effusion. It was felt that she had a heart failure exacerbation. She was started on IV Lasix. She had a thoracentesis done on 12/09/19, was seen on 05/20 in followup. She was continued on IV Lasix, spironolactone was added. It was felt that the patient was severely deconditioned, losing weight. It was noted on 12/08/19 that she had somnolence and altered mental status. ABG revealed CO2 retention. She was transferred to the ICU, requiring a thoracentesis. She underwent that the following day on 12/09/19. She did remarkably well. She ultimately was transferred back out of the ICU on and was doing fairly well. Unfortunately, in the morning of 12/10/19 at 3 in the morning, the patient spiked a fever of 101. She had a heart rate of 91, was tachypneic. She was found to be obtunded, responding to painful stimuli only. She had a heart rate in the 130s to 140s. She was given IV Ativan. CT of the brain was obtained. Sepsis protocol was initiated. An ABG was drawn. She was seen in followup today by data conversion operator. Again, it was noted that she returned to the ICU with hypercapnia and unresponsiveness and it was felt that the patient had a significantly poor prognosis. It was felt that short-term recovery was not likely and most certainly not durable. It was discussed in detail with the patient's and family and it was felt that the patient would not want any further care escalated and they were entertaining the deescalation to comfort measures in light of DNR/DNI had been ordered and a MOLST was completed. The family ultimately later that evening on 12/10/19 opted for comfort measures only. Goals of care were discussed actually with Dr. Luong. The patient was placed on comfort measures. Orders were discontinued with the exception of comfort measures. I received a phone call at 2029, went to evaluate the patient and at 2032, and she was pronounced . The family declined autopsy. The family was present for the pronouncement. certificate was filled out. Questions were answered and discussed this with Dr. Luong. TIME SPENT: On the discharge was less than 20 minutes, greater than half time was spent [id number] with the patient and the family going over the discharge planning and care. BOLA DOMINGUEZ NP [id number]/[facility] #: [id number]
[2019-12-11] MEDS ORDERED: Digoxin IV* 0.5 MG/2 ML AMP (0.25 MG/ML) IV SLOW PU ONE ×2 (08:00→11:29)
[2019-12-11 16:30] LABS: Urine Calcium 196 mg/24 h (<200); Urine Calcium Conc 17 mg/dL; Urine Collection Duration 24 h
[2019-12-12 14:30] LABS: Lactate Dehydrogenase, BF 56 U/L
== END 2019-12-10 20:33 | disposition expired | DRG 189 ==
LOC: ED 11:27 → MEDTELE 15:05 → ICU 12-08 18:36 → MEDTELE 12-09 19:44 → ICU 12-10 03:05
PROVIDERS: ADMIT Internal Medicine; ATTEND Internal Medicine
PROC: 5A09457 Assistance with Respiratory Ventilation, 24-96 Consecutive Hours, Continuous Positive Airway Pressure (ICD-10-PCS; 2019-12-08)
PROC: 0W993ZZ Drainage of Right Pleural Cavity, Percutaneous Approach (ICD-10-PCS; principal; 2019-12-09)
DX: J96.20 Acute and chronic respiratory failure, unspecified whether with hypoxia or hypercapnia (principal); I50.33 Acute on chronic diastolic (congestive) heart failure; R64 Cachexia; I11.0 Hypertensive heart disease with heart failure; D50.9 Iron deficiency anemia, unspecified; I78.0 Hereditary hemorrhagic telangiectasia; I35.0 Nonrheumatic aortic (valve) stenosis; I27.20 Pulmonary hypertension, unspecified; E21.0 Primary hyperparathyroidism; I48.91 Unspecified atrial fibrillation; Z66 Do not resuscitate; Z51.5 Encounter for palliative care; E78.5 Hyperlipidemia, unspecified; Z80.0 Family history of malignant neoplasm of digestive organs; Z79.899 Other long term (current) drug therapy; Z88.8 Allergy status to other drugs, medicaments and biological substances; Z91.018 Allergy to other foods
CPT/HCPCS: 36415; 36600; 70450; 71045; 71046; 76604; 80048; 80053; 80076; 82140; 82306; 82310; 82340; 82803; 82945; 83605; 83615; 83735; 83880; 83970; 84100; 84157; 84484; 85025; 85610; 85730; 87040; 87070; 87205; 89051; 93005; 94660; 96365; 96366; 99284; A9270-GY; J0456; J0696; J1160; J1630; J1756; J1940; J2060; J2270; J3490